=== PATIENT | female | born 1990 | race African-American/Black ===

== ENCOUNTER 2019-12-15 10:24 | Emergency (ER) | payer OTHER, SELFPAY ==
--- NOTE | ~2019-12-15 | XR_ITS ---
EXAMINATION: XR chest 1V portable DATE: 12/15/2019 11:34 INDICATION: Cough. Chills. TECHNIQUE: A single frontal view of the chest was obtained. COMPARISON: None. FINDINGS: The chest demonstrates clear lungs without pneumonia, pleural effusion, or pneumothorax. Th e heart size is normal. IMPRESSION: 1. No acute cardiopulmonary disease. Reviewed, dictated and finalized at location A.
[2019-12-15 10:31] VITALS: BP 128/75; PULSE 95; RESP 20; TEMP 37.1; O2SAT 98
--- NOTE | 2019-12-15 11:09 | ED.URI ---
HPI - URI/Sore Throat General Chief Complaint: Upper Respiratory Infection Stated Complaint: bodyaches, headache Time Seen by Provider: 12/15/19 10:40 Source: patient Mode of arrival: ambulatory Limitations: no limitations History of Present Illness HPI Narrative: This is a 29 year old female that presents to the ER for cold symptoms x 3 days. Reports cough, congestion, body aches, nausea and chills. Denies fever, chest pain or shortness of breath. Related Data Home Medications Medication Instructions Recorded Confirmed No Home Medications 12/15/19 12/15/19 Allergies Allergy/AdvReac Type Severity Reaction Status Date / Time No Known Allergies Allergy Verified 12/15/19 10:36 Review of Systems Review of Systems: Narrative: CONSTITUTIONAL: Denies fever ENT: Reports congestion. Denies sore throat, or otalgia. CARDIOVASCULAR: Denies chest pain RESPIRATORY: Reports cough. Denies dyspnea. GASTROINTESTINAL: Reports nausea, vomiting All systems reviewed & are unremarkable except as noted in HPI and below PMFSH Surgical History Surgical History (Updated 12/15/19 @ 11:14 by Kayla Ann PA-C) History of hernia repair Social History Social History (Updated 12/15/19 @ 11:14 by Kayla Ann PA-C) Substance use: never Gender identity (if verbalized by the patient): Female Exam Narrative: Exam Narrative: GENERAL: Well-appearing, obese, and in no acute distress. HEAD: Normocephalic, atraumatic. EYES: EOMI. ENT: Turbinates swollen and pale. Mucous membranes moist. Oropharynx without tonsillar hypertrophy exudate or other lesions. Bilateral TMs pearly casey non-bulging NECK: Supple. No adenopathy or masses. CHEST: Clear to auscultation. No respiratory distress. No wheezes rales or rhonchi HEART: Regular rate and rhythm. No murmur heard. Normal peripheral pulses. ABDOMEN: Soft, nontender, nondistended, normal active bowel sounds. EXTREMITIES: Normal range of motion. No edema. SKIN: Warm, dry, no rash. NEURO: No focal deficits. Alert and oriented x3. PSYCH: Normal mood and affect Course Vital Signs Vital signs: Vital Signs Temperature 98.7 F 12/15/19 10:31 Pulse Rate 95 12/15/19 10:31 Respiratory Rate 20 10/16/20 10:31 Blood Pressure 128/75 10/16/20 10:31 Pulse Oximetry 98 12/15/19 10:31 Temperature 98.7 F 12/15/19 10:31 Pulse Rate 95 12/15/19 10:31 Respiratory Rate 20 12/15/19 10:31 Blood Pressure 128/75 12/15/19 10:31 Pulse Oximetry 98 12/15/19 10:31 MDM - URI/Sore Throat MDM Narrative Medical decision making narrative: Patient presents emergency department for cold symptoms x3 days. She is afebrile and nontoxic-appearing. Oxygen saturation is remained normal on room air. CBC is without concerning findings. Metabolic panel with mild hypokalemia. Patient given dose of potassium in the ED. Influenza screen is negative. Major screen negative. SARS-CoV-2 was sent. Chest x-ray is clear. Patient updated on case findings. She is instructed on care of viral infection. She is to follow-up with primary care doctor. She was given warnings to return to the ER Lab Data Attestation: I reviewed the patient's lab results. Result diagrams: 12/15/19 11:17 12/15/19 11:17 Labs: Lab Results 12/15/19 12/15/19 12/15/19 Range/Units 11:04 11:17 11:17 WBC 3.3 L (4.5-10.0) K/mm3 RBC 4.14 L (4.2-5.4) M/mm3 Hgb 12.1 (12.0-15.0) g/dL Hct 36.3 L (37.0-47.0) % MCV 87.7 (80-100) fl MCH 29.2 (26-34) pg MCHC 33.3 (32-36) g/dl RDW 12.2 (11.5-14.5) % Plt Count 202 (150-375) k/mm3 MPV 9.0 (7.4-10.4) fl Immature Gran % (Auto) 0.3 (0-0.5) % Neut % (Auto) 47.0 (45.5-73.1) % Lymph % (Auto) 32.9 (18.3-44.2) % Major % (Auto) 19.2 H (2.6-8.5) % Eos % (Auto) 0.0 (0-4.4) % Baso % (Auto) 0.6 (0.2-1.2) % Lymph # (Auto) 1.10 (0.9-3.2) K/mm3 Major # (Auto) 0.6 (0.1-0.6) K/m
[2019-12-15 11:24] LABS: Basophils Percent Auto 0.6 % (0.2-1.2); Hematocrit 36.3 % (37.0-47.0); Hemoglobin 12.1 g/dL (12.0-15.0); Immature Granulocyte Absolute 0.01 K/mm3 (0.00-0.031); Immature Granulocyte Percent A 0.3 % (0-0.5); Lymphocytes Percent Auto 32.9 % (18.3-44.2); Mean Corpuscular HGB Conc 33.3 g/dl (32-36); Mean Corpuscular Hemoglobin 29.2 pg (26-34); Mean Corpuscular Volume 87.7 fl (80-100); Monocytes Absolute Auto 0.6 K/mm3 (0.1-0.6); Monocytes Percent Auto 19.2 % (2.6-8.5); Neutrophils Absolute Auto 1.6 K/mm3 (1.3-6.7); Platelet Count Result 202 k/mm3 (150-375); Red Blood Count 4.14 M/mm3 (4.2-5.4); Red Cell Distribution Width 12.2 % (11.5-14.5); White Blood Count 3.3 K/mm3 (4.5-10.0)
[2019-12-15 11:32] LABS: Atypical Lymphocytes Present; Platelet Estimate Adequate (Adequate)
[2019-12-15 11:39] LABS: Alanine Aminotransferase 49 U/L (4-35); Albumin Level 4.3 g/dL (3.5-5.1); Alkaline Phosphatase 60 U/L (38-126); Anion Gap 12 mmol/L (8-16); Aspartate Amino Transferase 51 U/L (14-36); Bilirubin,Total 0.3 mg/dL (0.2-1.3); Blood Urea Nitrogen 7 mg/dL (7-17); Calcium 8.5 mg/dL (8.4-10.2); Carbon Dioxide 22 mmol/L (22-30); Chloride 103 mmol/L (98-107); Estimated CRCL calculation 101 ml/min; Estimated Glomerular Filt Rate > 60; Glucose 93 mg/dL (65-105); Potassium 3.3 mmol/L (3.4-5.0); Sodium 137 mmol/L (137-145)
[2019-12-15] MEDS: POTASSIUM CHLORIDE 20 MEQ TABLET PO (11:51)
[2019-12-15 12:07] LABS: Monoscreen Negative (Negative); Negative Monotest Control Negative (Negative); Positive Monotest Control Positive (Positive)
[2019-12-15 18:26] LABS: SARS-CoV-2 RNA PCR Positive
== END 2019-12-15 12:44 | disposition home or self-care (01) ==
PROVIDERS: Physician Assistant; Emergency Provider Emergency Medicine
DX: U07.1 COVID-19 (principal)
CPT/HCPCS: 36415; 71045; 80053; 85025; 86308; 87635; 87804; 99283; A9270; C9803; U0003

== ENCOUNTER 2024-02-19 16:09 | Emergency (ER) | payer OTHER, SELFPAY ==
[2024-02-19 16:12] VITALS: BP 121/77; PULSE 100; RESP 14; TEMP 36.7; O2SAT 98
--- NOTE | 2024-02-19 17:10 | ED.SKABFB ---
HPI - Skin/Abscess/Foreign Bdy General Chief complaint: Skin/Abscess/Foreign Body Stated complaint: jorge Tee armpit Time Seen by Provider: 02/19/24 16:15 Source: patient Mode of arrival: ambulatory Limitations: no limitations History of Present Illness HPI narrative: this is a 33-year-old female that presents to the emergency department for an abscess on her left axilla. Present over the last couple of weeks. She has not been evaluated yet for this complaint. Denies fevers or drainage. Related Data Allergies Allergy/AdvReac Type Severity Reaction Status Date / Time morphine Allergy Itching Verified 02/19/24 16:27 Review of Systems Review of Systems: CONSTITUTIONAL: Denies fever SKIN: Reports swelling and pain All systems reviewed & are unremarkable except as noted in HPI and below PMFSH Past Medical History Medical History (Updated 02/19/24 @ 17:15 by Kayla Ann PA-C) History of hidradenitis suppurativa Surgical History Surgical History (Updated 12/15/19 @ 11:14 by Kayla Ann PA-C) History of hernia repair Social History Social History (Updated 12/15/19 @ 11:14 by Kayla Ann PA-C) Substance use: never Gender identity (if verbalized by the patient): Female Exam Narrative: GENERAL: Well-appearing, well-nourished, and in no acute distress. HEAD: Normocephalic, atraumatic. EYES: EOMI. CHEST: No respiratory distress. HEART: Regular rate EXTREMITIES: Normal range of motion. Small area of edema with central fluctuance to the left axilla. No lymphangitic streaking SKIN: Warm, dry, no rash. NEURO: No focal deficits. Alert and oriented x3. PSYCH: Normal mood and affect Course Course Emergency Course: patient educated on further wound care Vital Signs Vital signs: Vital Signs Temperature 98.0 F 02/19/24 16:12 Pulse Rate 100 02/19/24 16:12 Respiratory Rate 14 02/19/24 16:12 Blood Pressure 121/77 02/19/24 16:12 Pulse Oximetry 98 02/19/24 16:12 Oxygen Delivery Room Air 02/19/24 16:12 Temperature 98.0 F 02/19/24 16:12 Pulse Rate 100 02/19/24 16:12 Respiratory Rate 14 02/19/24 16:12 Blood Pressure 121/77 02/19/24 16:12 Pulse Oximetry 98 02/19/24 16:12 Oxygen Delivery Room Air 02/19/24 16:12 Procedures Abscess I/D upper extremity: Date of Incision: 02/19/24 Time of Incision: 17:12 Side (if applicable): left Local Anesthetic: lidocaine 1% and with epi Amount of anesthesia used (mL): 1 Technique: incised with #11 blade Irrigation: Yes (loculations broken up) Packing used?: plain I&D Results: Pus and Blood MDM - Skin/Abscess/Foreign Bdy MDM Narrative Medical decision making narrative: patient presents to the emergency department for abscess of the left axilla. She is afebrile and nontoxic appearing. Abscess was successfully drained. Patient will be started on oral antibiotics. Instructed on further wound care. She is to follow up my freelance copywriter. She was given warnings to return to the ER Differential Diagnosis Differential diagnosis: Likely abscess of skin or subcutaneous tissue and cellulitis Critical Care Time Critical Care Time Critical Care Time: No Discharge Plan Discharge Clinical Impression: Abscess of skin or subcutaneous tissue Qualifiers: Site of cutaneous abscess: extremity Site of cutaneous abscess of extremity: axilla Laterality: left Qualified Code(s): L02.412 - Cutaneous abscess of left axilla Patient Disposition: Home, Self-Care Condition: Stable Instructions: Antibiotic Form, Abscess (ED) Additional Instructions: Return if symptoms worsen or concerns: any increase in redness, swelling, pain or fever over 101 Take antibiotics as directed. Clean wound with mild soapy water. Apply antibiotic ointment and clean dressing at least three times daily. Warm compresses 3 times a day for 20 minutes each Follow up with primary care in the next 2-3 days for re-evaluation and packing removal Patient Language: Serbian Prescriptions: New doxycycline hyclate 100 mg tablet 100 mg PO BID 7 Days Qty: 14 0RF Follow-up/Referrals: Jesse Obando MD [Physician] - PHYSICIAN,COMBINING MACHINE OPERATOR [Primary Care Provider] -
[2024-02-19 17:26] VITALS: BP 125/82; PULSE 70; RESP 16; O2SAT 100
--- OUTSIDE RECORDS SUMMARY | 2024-02-26 23:11 | XMS_ITS | Encounter Summary ---
Author Organization [facility] Address [facility]6 [facility] [address] [place] [address] Care Team Providers Care Program Support Assistant Name Role Phone None, Provider Primary Care Provider Unavaila ble Reason for Referral * (Routine) - Closed Specialty Diagnoses / Procedures Referred By Contac t Referred To Contact Procedures INCISION AND DRAINAGE Elisa Gonzales NP Phone: tel: fax: Referral ID Status Reason Start Date Expiration Date Visits Re quested Visits Authorized [id number] Closed 01/26/2022 01/26/2023 1 1 MENTATION CONSULTANT Reason for Visit * Reason Comments Abscess Encounter Details Date Type Department Care Team (Late st Contact Info) Description 01/12/2022 12:56 PM DOCUMENTATION CONSULTANT - 01/12/2022 1:53 PM DOCUMENTATION CONSULTANT Emergency [facility] Emergency [address] [place] [address] Elisa Gonzales NP [address] [place], [place] [address] Abscess Discharge Disposition: Home or Self Care (Routine Discharge) Social History Tobacco Use Types Packs/Day Years Used Date Smoking Tobacco: Never Smokeless Tobacco: Never Comments No Sex and Gender Information Value Date Recorded Sex Assigned at Not on file Legal Sex Female 7:59 AM CDT Gender Identity Not on file Sexual Orientation Not on file COVID-19 Exposure Response Date Recorded In the last 10 days, have mazin waite been in contact with someone who was confirmed or suspected to have Coronavirus/COVID-19? No / Unsure 01/09/2022 9:07 AM DOCUMENTATION CONSULTANT documented as of this encounter Last Filed Vital Signs Vital Sign Reading Time Taken Comments Blood Pressure 123/69 01/12/2022 12:28 PM DOCUMENTATION CONSULTANT Pulse 67 01/12/2022 12:28 PM DOCUMENTATION CONSULTANT Temperature 36.7 ??C (98.1 ??F) 01/12/2022 12:[address] Respiratory Rate 17 01/12/2022 12:28 PM DOCUMENTATION CONSULTANT Oxygen Saturation 100% 01/12/2022 12:28 PM DOCUMENTATION CONSULTANT Inhaled Oxygen Concentration - - Weight 90.3 kg (199 lb 1.2 oz) 01/12/2022 12:28 PM DOCUMENTATION CONSULTANT Height 160 cm (5' 3 ) 01/12/2022 12:28 PM DOCUMENTATION CONSULTANT Body Mass Index 35.26 01/12/2022 12:28 PM DOCUMENTATION CONSULTANT documented in this encounter Discharge Instructions * Discharge Instructions* Elisa Gonzales NP - 01/12/2022 12:58 PM DOCUMENTATION CONSULTANT Thank you for choosing [facility] emergency department. We are happy to serve your healthcare needs. Follow-up with your primary care provider in 3 days. Call to set up an appointment. Leave packing in for 3 to 5 days. If you continue to have drainage after 5 days, you will need thisrepacked. For pain, inflammation, fever Ibuprofen as directed. 600 mg every 6 hours as needed for pain, inflammation, fever. Do Not take longer than 5 days in a row. Do not take if you have a history of kidney failure, heart disease, gastrointestinal bleeding or ulcers. Tylenol as directed. 500 mg to 1000 mg every 4-6 hours as needed for pain or fevers. Do not take more than 3500 mg in 24 hours. MENTATION CONSULTANT documented in this encounter Medications at Time of Discharge chlorhexidine 4 % Liquid Apply topically daily as needed. 118 mL 09/02/2021 HYDROcodone-acetamin ophen (NORCO) 5-325 MG tabletIndications:Ac [place] Pain < 3 Day Supply Take 1 tablet by mouth every 6 (six) hours as needed. Indications: Acute Pain < 3 Day Supply 12 tablet 01/12/2022 ondansetron (ZOFRAN-ODT) 4 MG disintegrating tablet Take 1 tablet (4 mg total) by mouth every 8 (eight) hours as needed for Nausea. 20 tablet 12/08/2021 doxycycline hyclate (VIBRAMYCIN) 100 MG capsule Take 1 capsule (100 mg total) by mouth 2 (two) times daily for 10 days. 20 capsule 01/09/2022 2 sulfamethoxazole-tri methoprim (BACTRIM DS) 800-160 MG tablet Take 1 tablet by mouth 2 (two) times daily for 10 days. 20 tablet 01/12/2022 2 documented as of this encounter ED Notes * Elisa Gonzales NP - 01/12/2022 12:56 PM CSTAssociated Order(s): Incision/Drainage Chief Complaint Chief Complaint Patient presents with ??? Abscess History of Present Illness Patient is a 31-year-old female with a past medical history significant for hidradenitis suppurativa who presents the ER today for complaints of abscess to left axilla for the last 3 weeks. Patient has had surgery to right axilla from a provider down and seen at [facility]. Patient states that she has anappointment with a surgeon in several weeks however, abscess is becoming larger and more painful over the last several days. Denies fever, chills or musculoskeletal complaints. Medical History ALLERGIES: No Known Allergies MEDICATIONS: Prior to Admission medications Medication Sig Start Date End Date Taking? Authorizing Provider HYDROcodone-acetaminophen (NORCO) 5-325 MG tablet Take 1 tablet by mouth every 6 (six) hours as needed. Indications: Acute Pain < 3 Day Supply 01/12/22 Yes Elisa Gonzales NP chlorhexidine 4 % Liquid Apply topically daily as needed. 09/02/21 Lauri Brennan NP ondansetron (ZOFRAN-ODT) 4 MG disintegrating tablet Take 1 tablet (4 mg total) by mouth every 8 (eight) hours as needed for Nausea. 12/08/21 Alcira M Savage, SPLIT LEATHER MOSSER PAST MEDICAL HISTORY: Past Medical History: Diagnosis Date ??? Known health problems: none PAST SURGICAL HISTORY: No past surgical history on file. FAMILY HISTORY: No family history on file. SOCIAL HISTORY: Social History Tobacco Use ??? Smoking status: Never ??? Smokeless tobacco: Never Review of Systems Review of Systems All other systems reviewed and are negative. Physical Exam Filed Vitals: 01/12/22 1228 BP: 123/69 Pulse: 67 Resp: 17 Temp: 98.1 ??F (36.7 ??C) TempSrc: Oral SpO2: 100% Weight: 90.3 kg (199 lb 1.2 oz) Height: 5' 3 (1.6 m) Physical Exam Vitals reviewed. Constitutional: General: She is not in acute distress. Appearance: Normal appearance. She is not ill-appearing, toxic-appearing or diaphoretic. Eyes: Extraocular Movements: Extraocular movements intact. Conjunctiva/sclera: Conjunctivae normal. Pupils: Pupils are equal, round, and reactive to light. Cardiovascular: Rate and Rhythm: Normal rate and regular rhythm. Pulses: Normal pulses. Heart sounds: Normal heart sounds. Pulmonary: Effort: Pulmonary effort is normal. Skin: Capillary Refill: Capillary refill takes less than 2 seconds. Comments: Left axilla with 2-3 cm area of induration, tenderness. Mild erythema. No current drainage. Neurological: General: No focal deficit present. Mental Status: She is alert and oriented to person, place, and time. Mental status is at baseline. Psychiatric: Mood and Affect: Mood normal. Behavior: Behavior normal. Thought Content: Thought content normal. Diagnostic Studies / Procedures ELECTROCARDIOGRAMS: No results found for this visit on 01/12/22. LABORATORY STUDIES: No results found for this visit on 01/12/22. IMAGING STUDIES No orders to display Incision/Drainage Date/Time: 01/26/2022 6:49 PM Performed by: Elisa Gonzales NP Authorized by: Elisa Gonzales NP Consent: Consent obtained: Verbal Consent given by: Patient Risks discussed: Incomplete drainage, pain and bleeding [place] protocol: Patient identity confirmed: Verbally with patient Location: Type: Abscess Size: 3 Location: left axilla. Pre-procedure details: Skin preparation: Povidone-iodine Anesthesia: Anesthesia method: Local infiltration Local anesthetic: Lidocaine 1% w/o epi Procedure type: Complexity: Simple Procedure details: Ultrasound guidance: no Needle aspiration: no Incision types: Stab incision Incision depth: Dermal Wound management: Probed and deloculated and irrigated with saline Drainage: Bloody and purulent Drainage amount: Moderate Packing materials: 1/4 in iodoform gauze Amount / iodoform: 2 cm Post-procedure details: Procedure completion: Tolerated well, no immediate complications ED Course / Medical Decision Making MDM Number of Diagnoses or Management Options Abscess of left axilla: minor Amount and/or Complexity of Data Reviewed Review and summarize past medical records: yes Patient Progress Patient progress: stable VSS. The patient is non toxic appearing. Differential diagnoses were considered and discussed with the patient. the patient's history, physical exam, and ancillary studies were taken into consideration for the patient's treatment. After reviewing the information and discussing the potential DDx andlikely Dx, the plan of care was discussed and the patient's disposition was agreed upon. Unless otherwise stated, this patient was seen independently without collaborative physician. Co signing MD Tirado Clinical Impression Abscess of left axilla (Primary) Disposition: Discharge Elisa Gonzales NP 01/26/[id number] Cosigned by Chato Tirado MD at 01/27/2022 8:00 AM DOCUMENTATION CONSULTANT MENTATION CONSULTANT MENTATION CONSULTANT * Oralia Gilliam RN - 01/12/2022 12:24 PM CST ARRIVED POV. C/O ABSCESS IN LT ARMT. STATES WAS SEEN HERE Wednesday, GIVEN ANTIBIOTICS, BUT AREA ONLY GETTING WORSE. MENTATION CONSULTANT documented in this encounter Plan of Treatment Not on file documented as of this encounter Procedures Procedure Name Priority Date/Time Associated Diagnosis Comments INCISION AND DRAINAGE Routine 01/26/2022 6:49 PM DOCUMENTATION CONSULTANT documented in this encounter Results * Incision/Drainage (01/26/2022 6:49 PM DOCUMENTATION CONSULTANT) Narrative Chato Tirado MD - 01/26/2022 6:49 PM DOCUMENTATION CONSULTANT Elisa Gonzales NP ? 01/26/2022 ??6:58 PM Incision/Drainage Date/Time: 01/26/2022 6:49 PM Performed by: Elisa Gonzales NP Authorized by: Elisa Gonzales NP Consent: ??Consent obtained: ??Verbal ??Consent given by: ??Patient ??Risks discussed: ??Incomplete drainage, pain and bleeding [place] protocol: ??Patient identity confirmed: ??Verbally with patient Location: ??Type: ??Abscess ??Size: ??3 ??Location: left axilla. Pre-procedure details: ??Skin preparation: ??Povidone-iodine Anesthesia: ??Anesthesia method: ??Local infiltration ??Local anesthetic: ??Lidocaine 1% w/o epi Procedure type: ??Complexity: ??Simple Procedure details: ??Ultrasound guidance: no ?Needle aspiration: no ?Incision types: ??Stab incision ??Incision depth: ??Dermal ??Wound management: ??Probed and deloculated and irrigated with saline ??Drainage: ??Bloody and purulent ??Drainage amount: ??Moderate ??Packing materials: ??1/4 in iodoform gauze ??Amount 1/4 iodoform: ??2 cm Post-procedure details: ??Procedure completion: ??Tolerated well, no immediate complications Elisa Gonzales NP PROCEDURE/MINOR SURGICAL ORD ERABLES Final Result documented in this encounter Visit Diagnoses Diagnosis Abscess of left axilla- Primary Cellulitis and abscess of upper arm and forearm documented in this encounter Administered Medications Inactive Administered Medications - up to 3 most recent administrations Medication Order MAR Action Action Date Dose Rate Site lidocaine (XYLOCAINE) 1 % injection SOLN 10 mL 10 mL, Intradermal, Once, 1 dose, On 01/12/22 at 1300 Given 01/12/2022 1:03 PM DOCUMENTATION CONSULTANT 10 mLs Left Arm documented in this encounter Active and Recently Administered Medications Times are shown in DOCUMENTATION CONSULTANT. Scheduled Medication Order 01/10/2022 01/11/2022 01/12/2022 lidocaine (XYLOCAINE) 1 % injection SOLN 10 mL (COMPLETED) 10 mL, Intradermal, Once, 1 dose, On Wed01/12/22 at 1300 1303 (Given - Provid er: Cher Cee RN) documented in this encounter Care Teams Program Support Assistant Relationship Specialty Start Date End Date None, Provider, PCP - General 09/02/21 documented as of this encounter
--- OUTSIDE RECORDS SUMMARY | 2024-02-26 23:11 | XMS_ITS | Encounter Summary ---
Author Organization [facility] Address [facility]6 [facility] [place] [address] [place] [address] Care Team Providers Care Chute Worker Name Role Phone None, Provider Primary Care Provider Unavaila ble Reason for Referral * Medication Prior Authorization - Closed Specialty Diagnoses / Procedures Referred By Contac t Referred To Contact Diagnoses Abscess of axilla, left Blanca Gibson PA-C [address] [address] Phone: tel: fax: Referral ID Status Reason Start Date Expiration Date Visits Re quested Visits Authorized [id number] Closed 1 1 S SERVICE ASSISTANT Reason for Visit * Reason Comments Abscess Encounter Details Date Type Department Care Team (Late st Contact Info) Description 02/20/2023 1:53 PM SALES SERVICE ASSISTANT - 02/20/2023 1:55 PM SALES SERVICE ASSISTANT Emergency [facility] [place] [address] Blanca Gibson PA-C [address] [address] Abscess Discharge Disposition: Home or Self Care (Routine Discharge) Social History Tobacco Use Types Packs/Day Years Used Date Smoking Tobacco: Never Smokeless Tobacco: Never Comments No Sex and Gender Information Value Date Recorded Sex Assigned at Not on file Legal Sex Female 7:59 AM CDT Gender Identity Not on file Sexual Orientation Not on file documented as of this encounter Last Filed Vital Signs Vital Sign Reading Time Taken Comments Blood Pressure 148/71 02/20/2023 1:21 PM SALES SERVICE ASSISTANT Pulse 89 02/20/2023 1:21 PM SALES SERVICE ASSISTANT Temperature 36.4 ??C (97.5 ??F) 02/20/2023 1:21 PM CS T Respiratory Rate 18 02/20/2023 1:21 PM SALES SERVICE ASSISTANT Oxygen Saturation 100% 02/20/2023 1:21 PM SALES SERVICE ASSISTANT Inhaled Oxygen Concentration - - Weight 86.5 kg (190 lb 11.2 oz) 02/20/2023 1:21 PM SALES SERVICE ASSISTANT Height 157.5 cm (5' 2 ) 02/20/2023 1:21 PM SALES SERVICE ASSISTANT Body Mass Index 34.88 02/20/2023 1:21 PM SALES SERVICE ASSISTANT documented in this encounter Discharge Instructions * Discharge Instructions* Blanca Gibson PA-C - 02/20/2023 1:25 PM SALES SERVICE ASSISTANT Take medications as prescribed. Warm compresses. Follow up with your doctor S SERVICE ASSISTANT * Attachments The following attachments cannot be sent through Care Everywhere. * Boil Discharge Instructions (Turkish) documented in this encounter Medications at Time of Discharge chlorhexidine 4 % Liquid Apply topically daily as needed. 118 mL 09/02/2021 fluticasone propionate (FLONASE) 50 MCG/ACT nasal spray 2 sprays by Each Nostril route daily. 9.9 mL 05/13/2022 HYDROcodone-acetamin ophen (NORCO) 5-325 MG tabletIndications:Ac [place] Pain < 3 Day Supply Take 1 tablet by mouth every 6 (six) hours as needed. Indications: Acute Pain < 3 Day Supply 12 tablet 01/12/2022 ketorolac (TORADOL) 10 MG tablet Take 1 tablet (10 mg total) by mouth every 6 (six) hours as needed for Pain. 20 tablet 05/13/2022 loratadine-pseudoeph edrine ER (CLARITIN-D 12 HOUR) 5-120 MG 12 hr tablet Take 1 tablet by mouth 2 (two) times daily. 20 tablet 05/13/2022 ondansetron (ZOFRAN-ODT) 4 MG disintegrating tablet Take 1 tablet (4 mg total) by mouth every 8 (eight) hours as needed for Nausea. 20 tablet 12/08/2021 traMADol (ULTRAM) 50 MG tabletIndications:Ac [place] Pain < 7 Day Supply Indications: Acute Pain < 7 Day Supply 1-2 tabs po q6 hours prn pain 16 tablet 02/20/2023 sulfamethoxazole-tri methoprim (BACTRIM DS) 800-160 MG tablet Take 1 tablet by mouth 2 (two) times daily for 10 days. 20 tablet 02/20/2023 4 documented as of this encounter ED Notes * Blanca Gibson PA-C - 02/20/2023 1:23 PM C[facility] 1990 Chief Complaint Chief Complaint Patient presents with Abscess History of Present Illness Abscess Associated symptoms: no fever, no headaches, no nausea and no vomiting Patient presents ambulatory to the emergency room through triage complaining of swollen abscess to left axilla for the past several days. Warm compresses and [id number] pain reliever without relief. No current drainage. Denies fever, chills, sweats. History of hidradenitis axillaris to the right side of her body, she had surgical procedure for this. This is the first abscess to the left side. No medication prior to arrival, regarding antibiotics. Medical History ALLERGIES: Review of patient's allergies indicates: No Known Allergies MEDICATIONS: Prior to Admission medications Medication Sig Start Date End Date Taking? Authorizing Provider sulfamethoxazole-trimethoprim (BACTRIM DS) 800-160 MG tablet Take 1 tablet by mouth 2 (two) times daily for 10 days. 02/20/23 03/02/23 Yes Blanca Gibson PA-C traMADol (ULTRAM) 50 MG tablet Indications: Acute Pain < 7 Day Supply 1-2 tabs po q6 hours prn pain 02/20/23 Yes Blanca Gibson PA-C chlorhexidine 4 % Liquid Apply topically daily as needed. 09/02/21 Lauri Brennan NP fluticasone propionate (FLONASE) 50 MCG/ACT nasal spray 2 sprays by Each Nostril route daily. 05/13/22 Hero Eugene NP HYDROcodone-acetaminophen (NORCO) 5-325 MG tablet Take 1 tablet by mouth every 6 (six) hours as needed. Indications: Acute Pain < 3 Day Supply 01/12/22 Elisa Gonzales NP ketorolac (TORADOL) 10 MG tablet Take 1 tablet (10 mg total) by mouth every 6 (six) hours as neededfor Pain. 05/13/22 Hero Eugene NP loratadine-pseudoephedrine ER (CLARITIN-D 12 HOUR) 5-120 MG 12 hr tablet Take 1 tablet by mouth 2 (two) times daily. 05/13/22 Hero Eugene NP ondansetron (ZOFRAN-ODT) 4 MG disintegrating tablet Take 1 tablet (4 mg total) by mouth every 8 (eight) hours as needed for Nausea. 12/08/21 Alcira Savage NP PAST MEDICAL HISTORY: Past Medical History: Diagnosis Date Known health problems: none PAST SURGICAL HISTORY: History reviewed. No pertinent surgical history. FAMILY HISTORY: No family history on file. SOCIAL HISTORY: Social History Tobacco Use Smoking status: Never Smokeless tobacco: Never Review of Systems Review of Systems Constitutional: Negative for activity change, appetite change, fever and unexpected weight change. HENT: Negative for ear pain, sore throat and trouble swallowing. Eyes: Negative. Respiratory: Negative for cough, chest tightness and shortness of breath. Cardiovascular: Negative for chest pain, palpitations and leg swelling. Gastrointestinal: Negative for abdominal distention, abdominal pain, constipation, diarrhea, nauseaand vomiting. Genitourinary: Negative for dysuria, flank pain and hematuria. Musculoskeletal: Negative for arthralgias, back pain, myalgias and neck pain. Skin: Negative for color change, rash and wound. Abscess left axilla Allergic/Immunologic: Negative for immunocompromised state. Neurological: Negative for dizziness, speech difficulty, weakness, light- headedness, numbness and headaches. Hematological: Negative for adenopathy. Psychiatric/Behavioral: Negative. Physical Exam Filed Vitals: 02/20/23 1321 BP: (!) 148/71 Pulse: 89 Resp: 18 Temp: 97.5 ??F (36.4 ??C) TempSrc: Temporal SpO2: 100% Weight: 86.5 kg (190 lb 11.2 oz) Height: 1.575 m (5' 2 ) Physical Exam Vitals and nursing note reviewed. Exam conducted with a sole inker present. Constitutional: General: She is not in acute distress. Appearance: Normal appearance. She is well-developed. She is not ill-appearing, toxic-appearing or diaphoretic. HENT: Head: Normocephalic and atraumatic. Right Ear: External ear normal. Left Ear: External ear normal. Nose: Nose normal. Mouth/Throat: Mouth: Mucous membranes are moist. Pharynx: Oropharynx is clear. Eyes: Extraocular Movements: Extraocular movements intact. Conjunctiva/sclera: Conjunctivae normal. Pupils: Pupils are equal, round, and reactive to light. Neck: Thyroid: No thyromegaly. Trachea: No tracheal deviation. Cardiovascular: Rate and Rhythm: Normal rate and regular rhythm. Pulses: Normal pulses. Heart sounds: Normal heart sounds. Pulmonary: Effort: Pulmonary effort is normal. No respiratory distress. Breath sounds: Normal breath sounds. Abdominal: General: Abdomen is flat. Bowel sounds are normal. There is no distension. Palpations: Abdomen is soft. There is no mass. Tenderness: There is no abdominal tenderness. There is no guarding or rebound. Hernia: No hernia is present. Musculoskeletal: General: No swelling, tenderness, deformity or signs of injury. Normal range of motion. Cervical back: Normal range of motion and neck supple. No rigidity. Lymphadenopathy: Cervical: No cervical adenopathy. Skin: General: Skin is warm and dry. Capillary Refill: Capillary refill takes less than 2 seconds. Findings: No rash. Comments: Superficial immature minimally fluctuant and indurated abscess to left axilla, approximately 1 cm diameter. No surrounding cellulitis or erythema. No necrotic skin tissue. No current drainage. Neurological: General: No focal deficit present. Mental Status: She is alert and oriented to person, place, and time. Cranial Nerves: No cranial nerve deficit. Sensory: No sensory deficit. Motor: No weakness. Coordination: Coordination normal. Gait: Gait normal. Deep Tendon Reflexes: Reflexes normal. Psychiatric: Mood and Affect: Mood normal. Behavior: Behavior normal. Thought Content: Thought content normal. Judgment: Judgment normal. Diagnostic Studies / Procedures ELECTROCARDIOGRAMS: No results found for this visit on 02/20/23. LABORATORY STUDIES: No results found for this visit on 02/20/23. IMAGING STUDIES No orders to display ED Course / Medical Decision Making Medical Decision Making Patient stable. Nontoxic appearance. No concerning vital signs. Immature abscess noted. Will discharge with antibiotic and PCP follow-up. Problems Addressed: Abscess of axilla, left: acute illness or injury Risk OTC drugs. Prescription drug management. Medications - No data to display Clinical Impression Abscess of axilla, left (Primary) Current Discharge Medication List START taking these medications Details sulfamethoxazole-trimethoprim (BACTRIM DS) 800-160 MG tablet Take 1 tablet by mouth 2 (two) times daily for 10 days. Qty: 20 tablet, Refills: 0 Class: Eprescribe Pharmacy: [facility]/pharmacy #[id number] [address] AT [facility] (Ph #: [phone]) traMADol (ULTRAM) 50 MG tablet Indications: Acute Pain < 7 Day Supply 1-2 tabs po q6 hours prn pain Qty: 16 tablet, Refills: 0 Class: Eprescribe Pharmacy: [email or web address]/pharmacy #[facility] / [facility], [place] [id number] [facility] (Ph #: [phone]) Associated Diagnoses: Abscess of axilla, left Disposition: Discharge Follow-Up: your doctor Call in 2 days BLANCA GIBSON PA-C 02/20/2023 Blanca Gibson PA-C 02/20/23 1328 Cosigned by Saran Foley MD at 02/20/2023 1:43 PM SALES SERVICE ASSISTANT S SERVICE ASSISTANT S SERVICE ASSISTANT * Ghada Martin RN - 02/20/2023 1:21 PM CST Pt states she has a boil under left arm that started a few days ago. Pt states she has a history of abscesses. States she has been putting warm compresses on it. No fevers. 6/10 pain. S SERVICE ASSISTANT documented in this encounter Plan of Treatment Not on file documented as of this encounter Visit Diagnoses Diagnosis Abscess of axilla, left- Primary Cellulitis and abscess of upper arm and forearm documented in this encounter Care Teams Chute Worker Relationship Specialty Start Date End Date None, Provider, PCP - General 09/02/21 documented as of this encounter
--- OUTSIDE RECORDS SUMMARY | 2024-02-26 23:11 | XMS_ITS | Encounter Summary ---
Author Organization [facility] Address [facility]6 [facility] [place] [address] [place] [address] Care Team Providers Care Leather Worker Name Role Phone None, Provider Primary Care Provider Merced vincent Encounter Details Date Type Department Care Team (Latest Contact Info) Description 02/20/2023 Travel Social History Tobacco Use Types Packs/Day Years Used Date Smoking Tobacco: Never Smokeless Tobacco: Never Comments No Sex and Gender Information Value Date Recorded Sex Assigned at Not on file Legal Sex Female 7:59 AM CDT Gender Identity Not on file Sexual Orientation Not on file documented as of this encounter Plan of Treatment Not on file documented as of this encounter Visit Diagnoses Not on filedocumented in this encounter Care Teams Leather Worker Relationship Specialty Start Date End Date None, Provider, PCP - General 09/02/21 documented as of this encounter
--- OUTSIDE RECORDS SUMMARY | 2024-02-26 23:11 | XMS_ITS | Encounter Summary ---
Author Organization [facility] System Address [facility] [place] [address] [place] [address] Care Team Providers Care Professor Of Religion Name Role Phone None, Provider Primary Care Provider Unavaila ble Reason for Visit * Reason Comments Headache Encounter Details Date Type Department Care Team (Late st Contact Info) Description 05/13/2022 11:08 AM CDT - 05/13/2022 12:03 PM CDT Emergency [facility] Emergency [address] [place] [address] Hero Eugene, GEE [address] [place] [address] [id number] Headache Discharge Disposition: Home or Self Care (Routine [...] Recorded In the last 10 days, have yo u been in contact with someone who was confirmed or suspected to have Coronavirus/COVID-19? No / Unsure 05/13/2022 9:10 AM CDT documented as of this encounter Last Filed Vital Signs Vital Sign Reading Time Taken Comments Blood Pressure 127/87 05/13/2022 9:33 AM CDT Pulse 78 05/13/2022 9:33 AM CDT Temperature 36.9 ??C (98.5 ??F) 05/13/2022 9:33 AM CD T Respiratory Rate 18 05/13/2022 9:33 AM CDT Oxygen Saturation 100% 05/13/2022 9:33 AM CDT Inhaled Oxygen Concentration - - Weight 87.3 kg (192 lb 7.4 oz) 05/13/2022 9:33 A M CDT Height 160 cm (5' 3 ) 05/13/2022 9:33 AM CDT Body Mass Index 34.09 05/13/2022 9:33 AM CDT documented in this encounter Discharge Instructions * Discharge Instructions* Hero Eugene NP - 05/13/2022 11:57 AM CDT Take medications as prescribed. Get plenty of clear fluids and stay well- hydrated. Follow-up with your primary care doctor for reevaluation of symptoms as needed. Return to the emergency department for any new or worsening concerns. * Attachments The following attachments cannot be sent through Care Everywhere. * Sinus Headache Discharge Instructions (Estonian) * Serous Otitis Media Discharge Instructions (Estonian) documented in this encounter Medications at Time of Discharge chlorhexidine 4 % Liquid Apply topically daily as needed. 118 mL 09/02/2021 fluticasone propionate (FLONASE) 50 MCG/ACT nasal spray 2 sprays by Each Nostril route daily. 9.9 mL 05/13/2022 HYDROcodone-acetamin ophen (NORCO) 5-325 MG tabletIndications:Ac cantwell Pain < 3 Day Supply Take 1 [...] as needed for Nausea. 20 tablet 12/08/2021 documented as of this encounter ED Notes * Hero Eugene NP - 05/13/2022 11:10 AM CDT Chief Complaint Chief Complaint Patient presents with ??? Headache History of Present Illness History obtained from patient 31-year-old female without significant past medical history presents to the emergency department with complaints of bilateral ear pain, facial pressure and forehead pain ongoing for the past 3 days. She denies fevers or chills. No sore throat. No chest pain or shortness of breath. Patient reports her ears and face feel full and are painful, throbbing. She denies taking anything for her symptoms. She denies chance of . No other complaints endorsed by patient while in emergency department today. Medical History ALLERGIES: No Known Allergies MEDICATIONS: Prior to Admission medications Medication Sig Start Date End Date Taking? Authorizing Provider fluticasone propionate (FLONASE) 50 MCG/ACT nasal spray 2 sprays by Each Nostril route daily. 05/13/22 Yes Hero Eugene NP ketorolac (TORADOL) 10 MG tablet Take 1 tablet (10 mg total) by mouth every 6 (six) hours as neededfor Pain. 05/13/22 Yes Hero Eugene NP loratadine-pseudoephedrine ER (CLARITIN-D 12 HOUR) 5-120 MG 12 hr tablet Take 1 tablet by mouth 2 (two) times daily. 05/13/22 Yes Hero Eugene NP chlorhexidine 4 % Liquid Apply topically daily as needed. 09/02/21 Lauri Brennan NP HYDROcodone-acetaminophen (NORCO) 5-325 MG tablet Take 1 tablet by mouth every 6 (six) hours as needed. Indications: Acute Pain < 3 Day Supply 01/12/22 Elisa Gonzales NP ondansetron (ZOFRAN-ODT) 4 MG disintegrating tablet [...] Review of Systems Review of Systems Constitutional: Negative. HENT: Positive for ear pain, sinus pressure and sinus pain. Eyes: Negative. Respiratory: Negative. Cardiovascular: Negative. Gastrointestinal: Negative. Endocrine: Negative. Genitourinary: Negative. Musculoskeletal: Negative. Skin: Negative. Allergic/Immunologic: Negative. Neurological: Negative. Hematological: Negative. Psychiatric/Behavioral: Negative. Physical Exam Filed Vitals: 05/13/22 0933 BP: 127/87 Pulse: 78 Resp: 18 Temp: 98.5 ??F (36.9 ??C) SpO2: 100% Weight: 87.3 kg (192 lb 7.4 oz) Height: 5' 3 (1.6 m) Physical Exam Vitals and nursing note reviewed. Constitutional: General: She is not in acute distress. Appearance: Normal appearance. She is well-developed. She is obese. She is not ill-appearing, toxic-appearing or diaphoretic. HENT: Head: Normocephalic and atraumatic. Right Ear: Ear canal and external ear normal. A middle ear effusion is present. There is no impacted cerumen. Left Ear: Ear canal and external ear normal. A middle ear effusion is present. There is no impactedcerumen. Nose: No congestion or rhinorrhea. Eyes: Conjunctiva/sclera: Conjunctivae normal. Pupils: Pupils are equal, round, and reactive to light. Neck: Thyroid: No thyromegaly. Vascular: No carotid bruit. Cardiovascular: Rate and Rhythm: Normal rate and regular rhythm. Pulses: Dorsalis pedis pulses are 2+ on the right side and 2+ on the left side. Heart sounds: Normal heart sounds. No murmur heard. No friction rub. No gallop. Pulmonary: Effort: Pulmonary effort is normal. No respiratory distress. Breath sounds: Normal breath sounds. Abdominal: General: Bowel sounds are normal. There is no distension. Palpations: Abdomen is soft. There is no mass. Tenderness: There is no abdominal tenderness. Musculoskeletal: General: No deformity. Cervical back: Neck supple. No rigidity or tenderness. Lymphadenopathy: Cervical: No cervical adenopathy. Skin: General: Skin is warm and dry. Neurological: Mental Status: She is alert and oriented to person, place, and time. Sensory: No sensory deficit. Psychiatric: Behavior: Behavior normal. Diagnostic Studies / Procedures ELECTROCARDIOGRAMS: No results found for this visit on 05/13/22. LABORATORY STUDIES: Results for orders placed or performed during the hospital encounter of 05/13/22 BIOFIRE PCR UPPER RESPIRATORY PROFILE (RESPIRATORY PCR PANEL 2) Specimen: NASOPHARYNGEAL SWAB Result Value Ref Range ADENOVIRUS PCR (RESP) NOT DETECTED NOT DETECTED CORONAVIRUS 229E PCR (RESP) NOT DETECTED NOT DETECTED CORONAVIRUS HKU1 PCR (RESP) NOT DETECTED NOT DETECTED CORONAVIRUS NL63 PCR (RESP) NOT DETECTED NOT DETECTED CORONAVIRUS OC43 PCR (RESP) NOT DETECTED NOT DETECTED METAPNEUMOVIRUS PCR (RESP) NOT DETECTED NOT DETECTED RHINOVIRUS/ENTEROVIRUS PCR (RESP) NOT DETECTED NOT DETECTED INFLUENZA A PCR (RESP) NOT DETECTED NOT DETECTED INFLUENZA B PCR (RESP) NOT DETECTED NOT DETECTED PARAINFLUENZA 1 PCR (RESP) NOT DETECTED NOT DETECTED PARAINFLUENZA 2 PCR (RESP) NOT DETECTED NOT DETECTED PARAINFLUENZA 3 PCR (RESP) NOT DETECTED NOT DETECTED PARAINFLUENZA 4 PCR (RESP) NOT DETECTED NOT DETECTED RSV PCR (RESP) NOT DETECTED NOT DETECTED B PARAPERTUSIS PCR (RESP) NOT DETECTED NOT DETECTED BORDETELLA PERTUSSIS PCR (RESP) NOT DETECTED NOT DETECTED CHLAMYDOPHILA PNEUMONIAE PCR (RESP) NOT DETECTED NOT DETECTED MYCOPLASMA PNEUMONIAE PCR (RESP) NOT DETECTED NOT DETECTED CORONAVIRUS SARS COV 2 PCR (RESP) NOT DETECTED NOT DETECTED FIRST TEST UNKNOWN EMPLOYED IN HEALTHCARE NO SYMPTOMATIC DEFINED BY CDC YES DATE OF SYMPTOM ONSET 20220511 HOSPITALIZATION STATUS UNKNOWN PATIENT IN ICU UNKNOWN RESIDENT OF [facility]ARE NO UNKNOWN RAPID STREP A Specimen: THROAT Result Value Ref Range SPEC DESCRIPTION THROAT SPECIAL REQUESTS NO SPECIAL REQUEST RAPID STREP TEST NEGATIVE FOR GROUP A BETA STREP CULTURE STREP A Specimen: THROAT Result Value Ref Range SPEC DESCRIPTION THROAT SPECIAL REQUESTS NO SPECIAL REQUEST CULTURE RESULT NO STREPTOCOCCUS PYOGENES (GROUP A) ISOLATED IMAGING STUDIES No orders to display ED Course / Medical Decision Making Medical Decision Making 31-year-old female presented to the emergency department with complaints of bilateral ear pain, pressure, generalized body aches ongoing for the past 2 days. On exam, patient is afebrile, nontoxic-appearing, no signs of distress. Bio fire, strep test negative here. Patient was given Toradol and tramadol for pain while here with improvement. Will discharge to home with decongestant, nasal steroid and Toradol for pain for management of sinusitis, serous otitis media. Patient is agreeable with plan and discharge. Return precautions discussed. Amount and/or Complexity of Data Reviewed Labs: ordered. Decision-making details documented in ED Course. ED Course as of 05/19/222130May 13, 2022 1153 RAPID STREP TEST: NEGATIVE FOR GROUP A BETA STREP [JZ] 1153 BP: 127/87 [JZ] 1153 Temp: 98.5 ??F (36.9 ??C) [JZ] 1153 Pulse: 78 [JZ] 1153 SpO2: 100 % [JZ] 1153 Resp: 18 [JZ] ED Course User Index [JZ] Hero Eugene NP Clinical Impression Sinusitis (Primary) Serous otitis media Disposition: Discharge Cosigner Rajeev Unless otherwise documented, I provided definitive care for this patient Follow up: PCP in 1 week Hero Eugene NP 05/19/222130 Cosigned by Yarely Dickinson MD at 05/20/2022 12:30 PM CDT Associated attestation - Yarely Dickinson MD - 05/20/2022 12:30 PM CDT I am signing this chart for administrative reasons. I did not directly see this patient nor was I involved in the patient's care. * Ilan Malik NP - 05/13/2022 9:32 AM CDT Medical Screening Exam Patient: Rohini Castellon : 1990 Encounter Date: 05/13/2022 Chief Complaint: Chief Complaint Patient presents with ??? Headache History of Present Illness: Rohini Castellon presents with HOWARD and body aches, symptoms started 2 days ago. Review of Systems: Review of Systems HENT: Positive for congestion, ear pain and sore throat. Negative for rhinorrhea. Neurological: Positive for headaches. Vitals: Filed Vitals: 05/13/22932 BP: 127/87 Pulse: 78 Resp: 18 Temp: 98.5 ??F (36.9 ??C) SpO2: 100% Weight: 87.3 kg (192 lb 7.4 oz) Height: 5' 3 (1.6 m) Brief Physical Exam: Physical Exam Constitutional: General: She is not in acute distress. Pulmonary: Effort: Pulmonary effort is normal. No respiratory distress. Neurological: General: No focal deficit present. Mental Status: She is alert and oriented to person, place, and time. Mental status is at baseline. Rohini Castellon was assessed while in the waiting room. Appropriate orders were entered based on assessment pending placement in ED room. Patient is stable to remain in waiting room until next available room opens. ILAN MALIK NP 05/13/2022 9:35 AM Ilan Malik NP 05/13/22 0935 Cosigned by Savita Jean MD at 05/17/2022 8:40 AM CDT * Chantell Astudillo RN - 05/13/2022 9:09 AM CDT Pt to triage c/o shooting pains in head and generalized body aches. States sx started two days ago. documented in this encounter Plan of Treatment Not on file documented as of this encounter Procedures Procedure Name Priority Date/Time Associated Diagnosis Comments CULTURE STREP A Nurse Collected Priority 05/13/2022 9:43 AM CDT RESPIRATORY PCR PANEL 2 Nurse Collected Priority 05/13/2022 9:43 AM CDT RAPID STREP A Nurse Collected Priority 05/13/2022 9:43 AM CDT documented in this encounter Results * CULTURE STREP A (05/13/2022 9:43 AM CDT) SPEC DESCRIPTION THROAT 05/13/2022 9:43 AM CDT [facility] SPECIAL REQUESTS NO SPECIAL REQUEST 05/13/2022 9:43 AM CDT [facility] CULTURE RESULT NO STREPTOCOCCUS PYOGENES (GROUP A) ISOLATED 05/15/2022 3:12 PM CDT [facility] THROAT SWAB / Unknown 05/13/2022 9:43 AM CDT 05/13/2022 9:53 AM CDT us Ilan Malik AIRCRAFT BODY REPAIRER MICROBIOLOGY - GENERAL ORDERA BLES Final Result Performing Organization Address [facility] [[email or web address]] Co de Phone Number [facility] [address] [place] [address], [phone] * RAPID STREP A (05/13/2022 9:43 AM CDT) SPEC DESCRIPTION THROAT 05/13/2022 9:43 AM CDT [facility] SPECIAL REQUESTS NO SPECIAL REQUEST 05/13/2022 9:43 AM CDT [facility] RAPID STREP TEST NEGATIVE FOR GROUP A BETA STREP 05/13/2022 10:09 AM CDT [facility] THROAT SWAB / Unknown 05/13/2022 9:43 AM CDT 05/13/2022 9:53 AM CDT us Ilan Malik AIRCRAFT BODY REPAIRER MICROBIOLOGY - GENERAL ORDERA BLES Final Result Performing Organization Address [facility]/ZIP Co de Phone Number [facility] [address] [place] [address], [place] [phone] * BIOFIRE PCR UPPER RESPIRATORY PROFILE (RESPIRATORY PCR PANEL 2) (05/13/2022 9:43 AM CDT) ADENOVIRUS PCR (RESP) NOT DETECTED NOT DETECTED 05/13/2022 10:50 AM CDT [facility] CORONAVIRUS 229E PCR (RESP) NOT DETECTED NOT DETECTED 05/13/2022 10:50 AM CDT [facility] CORONAVIRUS HKU1 PCR (RESP) NOT DETECTED NOT DETECTED 05/13/2022 10:50 AM CDT [facility] CORONAVIRUS NL63 PCR (RESP) NOT DETECTED NOT DETECTED 05/13/2022 10:50 AM CDT [facility] CORONAVIRUS OC43 PCR (RESP) NOT DETECTED NOT DETECTED 05/13/2022 10:50 AM CDT [facility] METAPNEUMOVIRUS PCR (RESP) NOT DETECTED NOT DETECTED 05/13/2022 10:50 AM CDT [facility] RHINOVIRUS/ENTEROV IRUS PCR (RESP) NOT DETECTED NOT DETECTED 05/13/2022 10:50 AM CDT [facility] INFLUENZA A PCR (RESP) NOT DETECTED NOT DETECTED 05/13/2022 10:50 AM CDT [facility] INFLUENZA B PCR (RESP) NOT DETECTED NOT DETECTED 05/13/2022 10:50 AM CDT [facility] PARAINFLUENZA 1 PCR (RESP) NOT DETECTED NOT DETECTED 05/13/2022 10:50 AM CDT [facility] PARAINFLUENZA 2 PCR (RESP) NOT DETECTED NOT DETECTED 05/13/2022 10:50 AM CDT [facility] PARAINFLUENZA 3 PCR (RESP) NOT DETECTED NOT DETECTED 05/13/2022 10:50 AM CDT [facility] PARAINFLUENZA 4 PCR (RESP) NOT DETECTED NOT DETECTED 05/13/2022 10:50 AM CDT [facility] RSV PCR (RESP) NOT DETECTED NOT DETECTED 05/13/2022 10:50 AM CDT [facility] B PARAPERTUSIS PCR (RESP) NOT DETECTED NOT DETECTED 05/13/2022 10:50 AM CDT [facility] BORDETELLA PERTUSSIS PCR (RESP) NOT DETECTED NOT DETECTED 05/13/2022 10:50 AM CDT [facility] CHLAMYDOPHILA PNEUMONIAE PCR (RESP) NOT DETECTED NOT DETECTED 05/13/2022 10:50 AM CDT [facility] MYCOPLASMA PNEUMONIAE PCR (RESP) NOT DETECTED NOT DETECTED 05/13/2022 10:50 AM CDT [facility] CORONAVIRUS SARS COV 2 PCR (RESP) NOT DETECTED NOT DETECTED 05/13/2022 10:50 AM CDT [facility] FIRST TEST UNKNOWN 05/13/2022 9:43 AM CDT [facility] EMPLOYED IN HEALTHCARE NO 05/13/2022 9:43 AM CDT [facility] SYMPTOMATIC DEFINED BY CDC YES 05/13/2022 9:43 AM CDT [facility] DATE OF SYMPTOM ONSET 2022051105/13/2022 9:43 AM CDT [facility] HOSPITALIZATION STATUS UNKNOWN 05/13/2022 9:43 AM CDT [facility] PATIENT IN ICU UNKNOWN 05/13/2022 9:53 AM CDT [facility] RESIDENT OF [facility] NO 05/13/2022 9:43 AM CDT [facility] UNKNOWN 05/13/2022 9:43 AM CDT [facility] NASOPHARYNGEAL SWAB / Unknown 05/13/2022 9:43 AM CDT us Ilan Malik NP MICROBIOLOGY - GENERAL ORDERA BLES Final Result [facility] [address] [place] [address], [phone] documented in this encounter Visit Diagnoses Diagnosis Sinusitis- Primary Unspecified sinusitis (chronic) Serous otitis media Nonsuppurative otitis media, not specified as acute or chronic documented in this encounter Administered Medications Inactive Administered Medications - up to 3 most recent administrations Medication Order MAR Action Action Date Dose Rate Site ketorolac (TORADOL) tablet 10 mg 10 mg, Oral, Once, 1 dose, On Wed05/13/22 at 1145 Given 05/13/2022 11:40 AM CDT 10 mg traMADol (ULTRAM) tablet 50 mg 50 mg, Oral, Once, 1 dose, On Wed05/13/22 at 1145 Given 05/13/2022 11:40 AM CDT 50 mg documented in this encounter Active and Recently Administered Medications Times are shown in CDT. Scheduled Medication Order 05/11/2022 05/12/2022 05/13/2022 ketorolac (TORADOL) tablet 10 mg (COMPLETED) 10 mg, Oral, Once, 1 dose, On Wed05/13/22 at 1145 1140 (Given - Provid er: Carey Thomas RN) traMADol (ULTRAM) tablet 50 mg (COMPLETED) 50 mg, Oral, Once, 1 dose, On Wed05/13/22 at 1145 1140 (Given - Provid er: Carey Thomas RN) documented in this encounter Care Teams Professor Of Religion Relationship Specialty Start Date End Date None, Provider, PCP - General 09/02/21 documented as of this encounter
--- OUTSIDE RECORDS SUMMARY | 2024-02-26 23:11 | XMS_ITS | Encounter Summary ---
Author Organization [facility] Address [facility] access hospital[address] [facility] [place] [address] [place] [address] Care Team Providers Care Internet E Commerce Specialist Name Role Phone None, Provider Primary Care Provider [place] vincent Encounter Details Date Type Department Care Team (Latest Contact Info) Description 01/09/2022 Travel Social History Tobacco Use Types Packs/Day [...] Coronavirus/COVID-19? No / Unsure 01/09/2022 9:07 AM RISK MANAGEMENT DIRECTOR documented as of this encounter Plan of Treatment Not on file documented as of this encounter Visit Diagnoses Not on filedocumented in this encounter Care Teams Internet E Commerce Specialist Relationship Specialty Start Date End Date None, Provider, PCP - General 09/02/21 documented as of this encounter
--- OUTSIDE RECORDS SUMMARY | 2024-02-26 23:11 | XMS_ITS | Encounter Summary ---
Author Organization [facility] System Address [facility] [place] [address] [place] [address] Care Team Providers Care Psychiatric Social Worker Name Role Phone None, Provider Primary Care Provider [place] vincent Encounter Details Date Type Department Care Team (Latest Contact Info) Description 05/13/2022 Travel Social History Tobacco Use Types Packs/Day [...] AM CDT documented as of this encounter Plan of Treatment Not on file documented as of this encounter Visit Diagnoses Not on filedocumented in this encounter Additional Health Concerns Infection Onset Date Last Indicated Resolved Time COVID-19 Rule Out 05/13/2022 05/13/2022 05/13/2022 10:51 AM CDT documented as of this encounter Care Teams Psychiatric Social Worker Relationship Specialty Start Date End Date None, Provider, PCP - General 09/02/21 documented as of this encounter
--- OUTSIDE RECORDS SUMMARY | 2024-02-26 23:11 | XMS_ITS | Clinical Summary ---
Author Organization [facility] Address [facility] [place] [address] [place] [address] Care Team Providers Care Refueling Ramp Attendant Name Role Phone None, Provider MD Primary Care Provider Unavaila ble Allergies No known active allergies Medications chlorhexidine 4 % Liquid Apply topically daily as needed. 118 mL 2 Active ondansetron (ZOFRAN-ODT) 4 MG disintegrating tablet Take 1 tablet (4 mg total) by mouth every 8 (eight) hours as needed for Nausea. 20 tablet 2 Active HYDROcodone-acetam inophen (NORCO) 5-325 MG tabletIndications: Acute Pain < 3 Day Supply Take 1 tablet by mouth every 6 (six) hours as needed. Indications: Acute Pain < 3 Day Supply 12 tablet 2 Active loratadine-pseudoe phedrine ER (CLARITIN-D 12 HOUR) 5-120 MG 12 hr tablet Take 1 tablet by mouth 2 (two) times daily. 20 tablet 3 Active ketorolac (TORADOL) 10 MG tablet Take 1 tablet (10 mg total) by mouth every 6 (six) hours as needed for Pain. 20 tablet 3 Active fluticasone propionate (FLONASE) 50 MCG/ACT nasal spray 2 sprays by Each Nostril route daily. 9.9 mL 3 Active traMADol (ULTRAM) 50 MG tabletIndications: Acute Pain < 7 Day Supply Indications: Acute Pain < 7 Day Supply 1-2 tabs po q6 hours prn pain 16 tablet 3 Active Active Problems No known active problems Immunizations Name Administration Dates Next Due PFIZER COVID-19 (ORIGINAL FO RMULATION, PURPLE CAP) mRNA, LNP-S, PF, 30 MCG/0.3 ML DOSE 07/23/2020,07/02/2020 Social History Tobacco Use Types Packs/Day Years Used Date Smoking Tobacco: Never Smokeless Tobacco: Never Comments No Sex and Gender Information Value Date Recorded Sex Assigned at Not on file Legal Sex Female 7:59 AM CDT Gender Identity Not on file Sexual Orientation Not on file Last Filed Vital Signs Vital Sign Reading Time Taken Comments Blood Pressure 148/71 02/20/2023 1:21 PM WELLFIELD TECHNICIAN Pulse 89 02/20/2023 1:21 PM WELLFIELD TECHNICIAN Temperature 36.4 ??C (97.5 ??F) 02/20/2023 1:21 PM CS T Respiratory Rate 18 02/20/2023 1:21 PM WELLFIELD TECHNICIAN Oxygen Saturation 100% 02/20/2023 1:21 PM WELLFIELD TECHNICIAN Inhaled Oxygen Concentration - - Weight 86.5 kg (190 lb 11.2 oz) 02/20/2023 1:21 PM WELLFIELD TECHNICIAN Height 157.5 cm (5' 2 ) 02/20/2023 1:21 PM WELLFIELD TECHNICIAN Body Mass Index 34.88 02/20/2023 1:21 PM WELLFIELD TECHNICIAN Plan of Treatment Health Maintenance Due Date Last Done Comments Cervical Cancer Screening Pa p Smear (Age 30 to 64) Every 3 Years 1990 Annual Physical 09/13/1995 Hepatitis C 2010 DTaP, Tdap and Td Vaccines ( 1 - Tdap) 09/13/2011 Hepatitis B Vaccines (1 of 3 - 19+ 3-dose series) 09/13/2011 Cervical Cancer Screening Pa p with HPV Testing (Age 30 to 64) Every 5 Years 2022 Cervical Cancer Screening wi th HPV 2022 COVID-19 Vaccine ( - 2023-2 5 season) 2023 07/23/2020, 07/02/2020 Influenza Adult (#1) 2023 HPV Vaccines Aged Out No longer eligi ble based on patient's age to complete this topic Meningococcal Vaccine Aged Out No jayne bull eligible based on patient's age to complete this topic Pneumococcal Vaccine: Pediatrics (0 to 5 Years) and At-Risk Patients (6 to 64 Years) Aged Out No longer eligible b ased on patient's age to complete this topic RSV Immunizations Under 20 Months Aged Out No longer eligible b ased on patient's age to complete this topic Insurance Care Teams Refueling Ramp Attendant Relationship Specialty Start Date End Date None, Provider, PCP - General 09/02/21
--- OUTSIDE RECORDS SUMMARY | 2024-02-26 23:12 | XMS_ITS | Encounter Summary ---
Author Organization [employer] [employer] Facility Care Team Providers Care Gas Distribution Plant Operator Name Role Phone Unavailable Primary Care Provider Unavailabl e Encounter Details Date Type Department Care Team (Late st Contact Info) Description 12/26/2014 1:29 PM CDT - 12/26/2014 5:00 PM CDT Hospital Encounter [facility] Arminda Craig NP [address] [place] [address] Carpal tunnel syndrome of right wrist Social History Tobacco Use Types Packs/Day Years Used Date Smoking Tobacco: Never Assessed Comments Unknown Sex and Gender Information Value Date Recorded Sex Assigned at Not on file Legal Sex Female 10:07 AM VENDETTE Gender Identity Not on file Sexual Orientation Not on file documented as of this encounter Plan of Treatment Not on file documented as of this encounter Procedures Procedure Name Priority Date/Time Associated Diagnosis Comments BLOOD HUMAN IMMUNODEFICIENCY VIRUS Routine 12/26/2014 3:05 PM CDT XR HAND 3+ VW Routine 12/26/2014 2:46 PM CDT DISCHARGE LABORATORY CUMULATIVE REPORT 12/26/2014 documented in this encounter Results * Blood Human Immunodeficiency virus [HIV] rapid screen (12/26/2014 3:05 PM CDT) HIV ab Negative Negative HISTORICAL RESULTS Blood specimen (specimen) 12/26/2014 3:05 PM CDT us Pernell Tamez MD LAB BLOOD ORDERABLES Final Res ult HISTORICAL RESULTS * XR Hand 3+ VW (12/26/2014 2:46 PM CDT) Anatomical Region Laterality Modality N/A Radiographic Maryse ging 12/26/2014 2:46 PM CDT Narrative 12/26/2014 2:56 PM CDT MARIE ALMARAZ M.D. FINAL REPORT ACC# ??Date Time ??Exam [id number] Dec 26, 2014 14:46:00 [id number] Hand minimum 3 views R EXAMINATION: ?? Three-view examination of the right hand. IMPRESSION: ?? No fractures or dislocations are seen. The soft tissues of the hand and the articulations are normal. Requested By: ARMINDA WALLACE FBrittanyN.PBrittany Dictated By: ?? MARIE ALMARAZ M.D. ??on Dec 26 2014 ??2:56P This document has been electronically signed by: MARIE ALMARAZ M.D. on Dec 26 2014 ??2:56P [id number] Procedure Note Provider, MD Reynaldo - 06/28/2016 MARIE ALMARAZ M.D. FINAL REPORT ACC# Date Time Exam [id number] Dec 26, 2014 14:46:00 13927 Hand minimum 3 views R EXAMINATION: Three-view examination of the right hand. IMPRESSION: No fractures or dislocations are seen. The soft tissues of the hand and the articulations are normal. Requested By: ARMINDA WALLACE F.N.PBrittany Dictated By: MARIE ALMARAZ M.D. on Dec 26 2014 2:56P This document has been electronically signed by: MARIE ALMARAZ M.D. on Dec 26 2014 2:56P [id number] Historical Provider MD SIDHU XR PROCEDURES Final R esult * DISCHARGE LABORATORY CUMULATIVE REPORT (12/26/2014) Narrative 12/26/2014 Ordered by an unspecified provider. us Historical Provider LAB BLOOD ORDERABLES Ita l Result documented in this encounter Visit Diagnoses Diagnosis Carpal tunnel syndrome of right wrist documented in this encounter
--- OUTSIDE RECORDS SUMMARY | 2024-02-26 23:12 | XMS_ITS | Encounter Summary ---
Author Organization [facility] Address [facility] [facility] [place] [address] [place] [address] Care Team Providers Care Statistical Geneticist Name Role Phone None, Provider Primary Care Provider Unavaila ble Reason for Visit * Reason Comments Abscess Encounter Details Date Type Department Care Team (Late st Contact Info) Description 01/09/2022 9:46 AM SPA SUPERVISOR - 01/09/2022 10:26 AM SPA SUPERVISOR Emergency [facility] Emergency [address] [place] [address] Mary Victoria, ELECTRONICS COMPUTER MECHANIC [address] [place] [id number] Abscess Discharge Disposition: Home or Self Care [...] Coronavirus/COVID-19? No / Unsure 01/09/2022 9:07 AM SPA SUPERVISOR documented as of this encounter Last Filed Vital Signs Vital Sign Reading Time Taken Comments Blood Pressure 119/80 01/09/2022 9:33 AM SPA SUPERVISOR Pulse 64 01/09/2022 9:33 AM SPA SUPERVISOR Temperature 36.9 ??C (98.4 ??F) 01/09/2022 9:33 AM CS T Respiratory Rate 17 01/09/2022 9:33 AM SPA SUPERVISOR Oxygen Saturation 100% 01/09/2022 9:33 AM SPA SUPERVISOR Inhaled Oxygen Concentration - - Weight 91.4 kg (201 lb 8 oz) 01/09/2022 9:33 AM SPA SUPERVISOR Height 160 cm (5' 3 ) 01/09/2022 9:33 AM SPA SUPERVISOR Body Mass Index 35.69 01/09/2022 9:33 AM SPA SUPERVISOR documented in this encounter Discharge Instructions * Discharge Instructions* Mary Victoria NP - 01/09/2022 10:18 AM SPA SUPERVISOR Take all antibiotics as prescribed and until finished, even if your symptoms improve. Ibuprofen 800mg as needed for pain, for pain unrelieved with Ibuprofen, take hydrocodone as prescribed Taking narcotics may cause constipation, consider using a stool softener Follow up with Dr. Dejesus as listed SUPERVISOR SUPERVISOR * Attachments The following attachments cannot be sent through Care Everywhere. * Hidradenitis Suppurativa (Faroese) documented in this encounter Medications at Time of Discharge chlorhexidine 4 % Liquid Apply topically daily as needed. 118 mL 09/02/2021 ondansetron (ZOFRAN-ODT) 4 MG disintegrating tablet Take 1 tablet (4 mg total) by mouth every 8 (eight) hours as needed for Nausea. 20 tablet 12/08/2021 doxycycline hyclate (VIBRAMYCIN) 100 MG capsule Take 1 capsule (100 mg total) by mouth 2 (two) times daily for 10 days. 20 capsule 01/09/2022 2 HYDROcodone-acetamin ophen (NORCO) 5-325 MG tabletIndications:Ac [place] Pain < 3 Day Supply Take 1 tablet by mouth every 6 (six) hours as needed. Indications: Acute Pain < 3 Day Supply 12 tablet 01/09/2022 2 documented as of this encounter ED Notes * Mary Victoria NP - 01/09/2022 9:47 AM CST ED NOTE Chief Complaint Chief Complaint Patient presents with ??? Abscess History of Present Illness History provided by: Patient Rohini Castellon, a 31-year-old female, with history of hidradenitis suppurativa, presents to ED withcomplaints of abscess to left axilla that she is noted for the past 2 weeks. Denies any drainage orfever. States she has had to have these surgically removed in the past. Denies any significant pastmedical history. Medical History ALLERGIES: No Known Allergies MEDICATIONS: Prior to Admission medications Medication Sig Start Date End Date Taking? Authorizing Provider doxycycline hyclate (VIBRAMYCIN) 100 MG capsule Take 1 capsule (100 mg total) by mouth 2 (two) times daily for 10 days. 01/09/22 01/19/22 Yes Mary Victoria NP HYDROcodone-acetaminophen (NORCO) 5-325 MG tablet Take 1 tablet by mouth every 6 (six) hours as needed. Indications: Acute Pain < 3 Day Supply 01/09/22 Yes Mary Victoria NP chlorhexidine 4 % Liquid Apply topically [...] History Tobacco Use ??? Smoking status: Never Smoker ??? Smokeless tobacco: Never Used Review of Systems Review of Systems Constitutional: Negative. Negative for chills and fever. HENT: Negative. Eyes: Negative. Respiratory: Negative. Cardiovascular: Negative. Gastrointestinal: Negative. Genitourinary: Negative. Musculoskeletal: Negative. Skin: Negative for rash. Left axilla abscess Neurological: Negative. Psychiatric/Behavioral: Negative. Physical Exam Filed Vitals: 01/09/22 0933 BP: 119/80 Pulse: 64 Resp: 17 Temp: 98.4 ??F (36.9 ??C) TempSrc: Oral SpO2: 100% Weight: 91.4 kg (201 lb 8 oz) Height: 5' 3 (1.6 m) Physical Exam Vitals and nursing note reviewed. Constitutional: General: She is not in acute distress. Appearance: Normal appearance. She is well-developed. She is not ill-appearing. HENT: Head: Normocephalic and atraumatic. Mouth/Throat: Pharynx: Uvula midline. Cardiovascular: Rate and Rhythm: Normal rate and regular rhythm. Heart sounds: Normal heart sounds, S1 normal and S2 normal. Pulmonary: Effort: Pulmonary effort is normal. No respiratory distress. Breath sounds: Normal breath sounds. Musculoskeletal: Cervical back: Normal range of motion and neck supple. Skin: General: Skin is warm and dry. Coloration: Skin is not pale. Findings: No rash. Comments: Abscess left axilla, no erythema or drainage Neurological: Mental Status: She is alert and oriented to person, place, and time. Psychiatric: Speech: Speech normal. Behavior: Behavior normal. Diagnostic Studies / Procedures ELECTROCARDIOGRAMS: No results found for this visit on 01/09/22. LABORATORY STUDIES: No results found for this visit on 01/09/22. IMAGING STUDIES No orders to display ED Course / Medical Decision Making MDM Number of Diagnoses or Management Options Hidradenitis suppurativa of left axilla: new, no workup Patient Progress Patient progress: stable ED Course as of 01/09/22 1138 WedJan 09, 2022 1136 Patient is a 31-year-old female, with history of hidradenitis suppurativa, presents to ED withcomplaints of abscess to left axilla that she is noted for the past 2 weeks. Denies any drainage orfever. States she has had to have these surgically removed in the past. I&D offered, patient declined. Will administer pain medication and discharge home with Doxycycline and follow up in plastics office. Patient agreeable with plan. [TU] ED Course User Index [TU] Mary Victoria NP Medications HYDROcodone-acetaminophen (NORCO) 5-325 MG tablet 1 tablet (1 tablet Oral Given 01/09/22 1018) Clinical Impression Hidradenitis suppurativa of left axilla (Primary) Disposition: Discharge Discharge Medication List as of 01/09/2022 10:25 AM START taking these medications Details doxycycline hyclate (VIBRAMYCIN) 100 MG capsule Take 1 capsule (100 mg total) by mouth 2 (two) times daily for 10 days., Starting Wed01/09/2022, Until Wed01/19/2022, Eprescribe Class: [id number] [place] [address] [id number], AT [facility] (Ph#: [phone]) HYDROcodone-acetaminophen (NORCO) 5-325 MG tablet Take 1 tablet by mouth every 6 (six) hours as needed. Indications: Acute Pain < 3 Day Supply, Starting Wed01/09/2022, Eprescribe Class: Eprescribe [facility] [place] [address] [address], AT [facility] (Ph#: [phone]) Follow-up: Rafael Dejesus MD [address] [facility] [phone] MARY VICTORIA NP 01/09/2022 Mary Victoria NP 01/09/22 1134 Cosigned by Chato Tirado MD at 01/09/2022 12:35 PM SPA SUPERVISOR SUPERVISOR SUPERVISOR * Tiffany Moody RN - 01/09/2022 9:07 AM CST Pt arrives to triage with c.o abscess under left axilla. SUPERVISOR documented in this encounter Plan of Treatment Not on file documented as of this encounter Visit Diagnoses Diagnosis Hidradenitis suppurativa of left axilla- Primary Hidradenitis documented in this encounter Administered Medications Inactive Administered Medications - up to 3 most recent administrations Medication Order MAR Action Action Date Dose Rate Site HYDROcodone-acetaminophen (NORCO) 5-325 MG tablet 1 tablet 1 tablet, Oral, Once, 1 dose, On Wed01/09/22 at 1015, Maximum dose of acetaminophen is 4000 mg from all sources in 24 hours. Given 01/09/2022 10:18 AM SPA SUPERVISOR 1 tablet documented in this encounter Active and Recently Administered Medications Times are shown in SPA SUPERVISOR. Scheduled Medication Order 01/07/2022 01/08/2022 01/09/2022 HYDROcodone-acetaminophen (NORCO) 5-325 MG tablet 1 tablet (COMPLETED) 1 tablet, Oral, Once, 1 dose, On Wed01/09/22 at 1015, Maximum dose of acetaminophen is 4000 mg from all sources in 24 hours. 1018 (Given - Provid er: Jessica Borden RN) documented in this encounter Care Teams Statistical Geneticist Relationship Specialty Start Date End Date None, Provider, PCP - General 09/02/21 documented as of this encounter
--- OUTSIDE RECORDS SUMMARY | 2024-02-26 23:12 | XMS_ITS | Encounter Summary ---
Author Organization [facility] Healthcare Address [address] [place] [address] Care Team Providers Care Industrial Maintenance Repairer Helper Name Role Phone No, Physician Primary Care Provider [phone] Reason for Visit * Reason Comments Wound Check Encounter Details Date Type Department Care Team (Late st Contact Info) Description 04/29/2023 5:37 PM UTILITY TELLER - 04/29/2023 6:10 PM UTILITY TELLER Emergency [facility] Emergency Department [address] [place] [address] Hidradenitis suppurativa of left axilla (Primary Dx); Acute axillary lymphadenitis Discharge Disposition: Discharge to home or self care Social History Tobacco Use Types Packs/Day Years Used Date Smoking Tobacco: Never Assessed Personal Safety Answer Date Recorded Have you ever been in or are you currently in a harmful physical or emotional relationship or is someone making you feel afraid or unsafe? Denies 04/30/2023 Comments Unknown Sex and Gender Information Value Date Recorded Sex Assigned at Not on file Legal Sex Female 10:07 AM UTILITY TELLER Gender Identity Not on file Sexual Orientation Not on file documented as of this encounter Last Filed Vital Signs Vital Sign Reading Time Taken Comments Blood Pressure 137/87 04/29/2023 5:36 PM UTILITY TELLER Pulse 78 04/29/2023 5:36 PM UTILITY TELLER Temperature 36.6 ??C (97.8 ??F) 04/29/2023 5:36 PM CS T Respiratory Rate 16 04/29/2023 5:36 PM UTILITY TELLER Oxygen Saturation 100% 04/29/2023 5:36 PM UTILITY TELLER Inhaled Oxygen Concentration - - Weight 82.6 kg (182 lb) 04/29/2023 5:36 PM UTILITY TELLER Height 160 cm (5' 3 ) 04/29/2023 5:36 PM UTILITY TELLER Body Mass Index 32.24 04/29/2023 5:36 PM UTILITY TELLER documented in this encounter Discharge Instructions * Attachments The following attachments cannot be sent through Care Everywhere. * Hidradenitis Suppurativa, Abx (Lao) * Adenitis (AfterCare(R) Instructions(ER/ED)) (Lao) documented in this encounter Medications at Time of Discharge acetaminophen-code ine (TYLENOL #2) 300-15 mg per tabletIndications: Hidradenitis suppurativa of left axilla,Acute axillary lymphadenitis Take 1 tablet by mouth every 4 (four) hours as needed (P.r.n. pain not relieved by naproxen alone. Take with food.) Collaborating physician Rao Mario MD 10 tablet 4 clindamycin (CLEOCIN T) 1 % lotion Apply topically 2 (two) times a day Apply twice daily as directed to left arm pit. Note to pharmacist: May substitute with gentamicin 0.1% cream or mupirocin ointment b.i.d., Disp. 30 gm. Collaborating physician Rao Mario MD 60 mL 1 4 doxycycline (VIBRAMYCIN) 100 mg capsuleIndications :Hidradenitis suppurativa of left axilla,Acute axillary lymphadenitis Take 1 tablet/capsule (100 mg total) by mouth 2 (two) times a day Two p.o. in the 1st dose then 1 p.o. b.i.d. thereafter for 10 days. Collaborating physician Rao Mario MD 20 capsule 4 naproxen (NAPROSYN) 500 mg tabletIndications: Hidradenitis suppurativa of left axilla,Acute axillary lymphadenitis Take 1 tablet (500 mg total) by mouth 2 (two) times a day with meals Take as directed to reduce pain and swelling. Collaborating physician Rao Mario MD 30 tablet 4 documented as of this encounter Ordered Prescriptions Prescription Sig Dispense Quantity Refills Last Filled Start Date End Date acetaminophen-code ine (TYLENOL #2) 300-15 mg per tabletIndications: Hidradenitis suppurativa of left axilla,Acute axillary lymphadenitis Take 1 tablet by mouth every 4 (four) hours as needed (P.r.n. pain not relieved by naproxen alone. Take with food.) Collaborating physician Rao Mario MD 10 tablet 4 naproxen (NAPROSYN) 500 mg tabletIndications: Hidradenitis suppurativa of left axilla,Acute axillary lymphadenitis Take 1 tablet (500 mg total) by mouth 2 (two) times a day with meals Take as directed to reduce pain and swelling. Collaborating physician Rao Mario MD 30 tablet 4 clindamycin (CLEOCIN T) 1 % lotion Apply topically 2 (two) times a day Apply twice daily as directed to left arm pit. Note to pharmacist: May substitute with gentamicin 0.1% cream or mupirocin ointment b.i.d., Disp. 30 gm. Collaborating physician Rao Mario MD 60 mL 1 4 doxycycline (VIBRAMYCIN) 100 mg capsuleIndications :Hidradenitis suppurativa of left axilla,Acute axillary lymphadenitis Take 1 tablet/capsule (100 mg total) by mouth 2 (two) times a day Two p.o. in the 1st dose then 1 p.o. b.i.d. thereafter for 10 days. Collaborating physician Rao Mario MD 20 capsule 4 acetaminophen-code ine (TYLENOL with CODEINE #3) 300-30 mg per tabletIndications: Hidradenitis suppurativa of left axilla,Acute axillary lymphadenitis Take 1 tablet by mouth every 6 (six) hours as needed for pain P.r.n. pain not relieved by naproxen alone. Take with food. Collaborating physician Rao Mario MD 10 tablet 4 04/29/19 24 documented in this encounter Discharge Disposition Disposition Code Departure Means Destination Comment s Discharge to home or self care documented in this encounter ED Notes * Sammy Vásquez PA - 04/29/2023 5:57 PM CST HPI Chief Complaint Patient presents with Wound Check 32-year-old female with past medical history of hidradenitis suppurativa presents with chief complaint of acute flare of her HS to the left axilla. Onset 1 week ago. Getting gradually worse. Complains of constant severe sharp aching pain aggravated by touch and activity. Taking and applying [id number] medication without relief. Pain does not radiate. Denies ulceration or discharge. Denies fever or chills. History provided by: Patient twisting press operator used: No Patient History: Patient Active Problem List Diagnosis Date Noted Hidradenitis suppurativa of left axilla 04/29/2023 History reviewed. No pertinent past medical history. History reviewed. No pertinent surgical history. History reviewed. No pertinent family history. Social History Tobacco Use Smoking status: None Smokeless tobacco: None Substance and Sexual Activity Alcohol use: None Drug use: None Sexual activity: None Social History Social History Narrative Not on file Review of Systems Review of Systems All other systems reviewed negative. All available allergies, past medical history, past surgical history, social history, and medications reviewed from the medical record, nursing notes, and with patient Physical Exam ED Triage Vitals [04/29/23 1736] Temp Pulse Resp BP SpO2 36.6 ??C (97.8 ??F) 78 16 137/87 100 % Temp src Heart Rate Source Patient Position BP Location FiO2 (%) Temporal -- -- -- -- Height Height Method Weight Weight Method 1.6 m (5' 3 ) Stated 82.6 kg (182 lb) Stated Physical Exam Vitals and nursing note reviewed. Constitutional: General: She is not in acute distress. Appearance: Normal appearance. She is not ill-appearing, toxic-appearing or diaphoretic. HENT: Head: Normocephalic. Right Ear: External ear normal. Left Ear: External ear normal. Nose: Nose normal. Mouth/Throat: Mouth: Mucous membranes are moist. Pharynx: Oropharynx is clear. Cardiovascular: Rate and Rhythm: Normal rate and regular rhythm. Pulses: Normal pulses. Heart sounds: Normal heart sounds. Pulmonary: Effort: Pulmonary effort is normal. Breath sounds: Normal breath sounds. Skin: General: Skin is warm and dry. Comments: Erythema and tenderness to the left axilla with left axillary lymphadenitis. Negative forulceration or discharge. Neurological: General: No focal deficit present. Mental Status: She is alert and oriented to person, place, and time. Psychiatric: Mood and Affect: Mood normal. Behavior: Behavior normal. Thought Content: Thought content normal. Judgment: Judgment normal. Voice recognition software [employer] was used to dictate and transcribe this document. Energy Systems Laboratory Director variances may occur. Despite proofreading, typographical errors may occur. MDM Medical Decision Making 32-year-old female with past medical history of hidradenitis suppurativa. Based on history and physical exam findings appears to be acute exacerbation of HS with left axillary regional lymphadenitis/lymphadenopathy. Discharge plan is to start patient on doxycycline p.o., topical clindamycin lotion,naproxen to reduce inflammation and swelling, and Tylenol #3 (Disp #10) for breakthrough pain. Patient given contact information to get established with a PCP and General surgery. Return for worsening signs/symptoms. Problems Addressed: Acute axillary lymphadenitis: acute illness or injury Hidradenitis suppurativa of left axilla: chronic illness or injury Risk Prescription drug management. Final diagnoses: Hidradenitis suppurativa of left axilla Acute axillary lymphadenitis Sammy Vásquez PA 04/29/231801 Cosigned by Nuria Lee MD at 04/29/2023 6:54 PM UTILITY TELLER ITY TELLER ITY TELLER * Yasmin Connors RN - 04/29/2023 5:35 PM CST Pt to ED for c/o a boil under my left arm for 7 days. ITY TELLER documented in this encounter Plan of Treatment Not on file documented as of this encounter Visit Diagnoses Diagnosis Hidradenitis suppurativa of left axilla- Primary Hidradenitis suppurativa of left axilla Acute axillary lymphadenitis Acute axillary lymphadenitis documented in this encounter Discontinued Medications Medication Sig Discontinue Reason Start Date End Da te acetaminophen-codeine (TYLENOL with CODEINE #3) 300-30 mg per tabletIndications:Hidr adenitis suppurativa of left axilla,Acute axillary lymphadenitis Take 1 tablet by mouth every 6 (six) hours as needed for pain P.r.n. pain not relieved by naproxen alone. Take with food. Collaborating physician Rao Mario MD Dose adjustment 04/29/2023 04/29/2023 documented as of this encounter Care Teams Industrial Maintenance Repairer Helper Relationship Specialty Start Date End Date No, Physician PCP - General 04/29/23 documented as of this encounter
--- OUTSIDE RECORDS SUMMARY | 2024-02-26 23:12 | XMS_ITS | Encounter Summary ---
Author Organization [facility] Address [facility] [place] [address] [place] [address] Care Team Providers Care Entry Level Staff Accountant Name Role Phone None, Provider Primary Care Provider Unavaila ble Reason for Visit * Reason Comments Rash Encounter Details Date Type Department Care Team (Late st Contact Info) Description 10/22/2021 9:18 AM CDT - 10/22/2021 9:[address] [facility] Emergency [address] [place] [address] Karly Renee, CLOSING MANAGER [address] [place] [id number] Rash Discharge Disposition: Home or Self Care (Routine [...] suspected to have Coronavirus/COVID-19? No / Unsure 10/22/2021 9:02 AM CDT documented as of this encounter Last Filed Vital Signs Vital Sign Reading Time Taken Comments Blood Pressure 124/71 10/22/2021 9:15 AM CDT Pulse 61 10/22/2021 9:15 AM CDT Temperature 37.1 ??C (98.8 ??F) 10/22/2021 9:15 AM CD T Respiratory Rate 20 10/22/2021 9:15 AM CDT Oxygen Saturation 100% 10/22/2021 9:15 AM CDT Inhaled Oxygen Concentration - - Weight 92.6 kg (204 lb 2.3 oz) 10/22/2021 9:15 A M CDT Height 157.5 cm (5' 2 ) 10/22/2021 9:15 AM CDT Body Mass Index 37.34 10/22/2021 9:15 AM CDT documented in this encounter Discharge Instructions * Discharge Instructions* Karly Gonzalez NP - 10/22/2021 9:30 AM CDT -Take the pills as directed -You may see a slight improvement in the rash but it may take 2-4 weeks for it to clear. -Keep the area clean, dry, cool, and open to air as much as possible. -You may use a hairdryer on the low, cool setting to help dry yourself in areas you are unable to reach. -Take medications as directed. -Follow up with your doctor or doctor referral. Call next business day to schedule an appointment for ED follow up in 7-10 days. Follow up with your doctor in 3 days if no improvement. -Return to the Emergency Department for new or worsening symptoms. Please read and follow additional written instructions provided. documented in this encounter Medications at Time of Discharge chlorhexidine 4 % Liquid Apply topically daily as needed. 118 mL 09/02/2021 fluconazole (DIFLUCAN) 150 MG tablet Take 1 tablet (150 mg total) by mouth once for 1 dose. Take one tablet today and one tablet on10/25 2 tablet 10/22/2021 2 documented as of this encounter ED Notes * Karly Gonzalez NP - 10/22/2021 9:28 AM CDT ED NOTE Chief Complaint Chief Complaint Patient presents with ??? Rash History of Present Illness 31 year old female who presents to the ER with complaints of a rash to her perineum x 3 days. She states that she noticed that it was itching after she shaved the area and then noticed white patches.She denies dysuria or any other complaints at this time. History provided by: Patient certified court/medical interpreter used: No Medical History ALLERGIES: No Known Allergies MEDICATIONS: Prior to Admission medications Medication Sig Start Date End Date Taking? Authorizing Provider fluconazole (DIFLUCAN) 150 MG tablet Take 1 tablet (150 mg total) by mouth once for 1 dose. Take one tablet today and one tablet on10/2510/22/21 10/22/21 Yes Karly Gonzalez NP chlorhexidine 4 % Liquid Apply topically daily as needed. 09/02/21 Lauri Brennan NP PAST MEDICAL HISTORY: Past Medical History: Diagnosis Date ??? Known health problems: none PAST SURGICAL HISTORY: History reviewed. No pertinent surgical history. FAMILY HISTORY: No family history on file. SOCIAL HISTORY: Social History Tobacco Use ??? Smoking status: Never Smoker ??? Smokeless tobacco: Never Used Review of Systems Review of Systems Skin: Positive for rash. All other systems reviewed and are negative. Physical Exam Filed Vitals: 10/22/21 0915 BP: 124/71 Pulse: 61 Resp: 20 Temp: 98.8 ??F (37.1 ??C) TempSrc: Oral SpO2: 100% Weight: 92.6 kg (204 lb 2.3 oz) Height: 5' 2 (1.575 m) Physical Exam Vitals and nursing note reviewed. Constitutional: General: She is awake. Appearance: She is morbidly obese. She is not ill-appearing or toxic-appearing. Cardiovascular: Rate and Rhythm: Normal rate and regular rhythm. Heart sounds: S1 normal and S2 normal. Pulmonary: Effort: Pulmonary effort is normal. Breath sounds: Normal breath sounds and air entry. Abdominal: General: Bowel sounds are normal. Palpations: Abdomen is soft. Tenderness: There is no abdominal tenderness. There is no left CVA tenderness or guarding. Genitourinary: Pubic Area: Rash (fungal) present. Labia: Right: No rash, tenderness or lesion. Left: No rash, tenderness or lesion. Musculoskeletal: Comments: Moving upper and lower extremities with purpose Skin: General: Skin is warm. Capillary Refill: Capillary refill takes less than 2 seconds. Neurological: General: No focal deficit present. Mental Status: She is alert and oriented to person, place, and time. GCS: GCS eye subscore is 4. GCS verbal subscore is 5. GCS motor subscore is 6. Psychiatric: Behavior: Behavior is cooperative. Diagnostic Studies / Procedures ELECTROCARDIOGRAMS: No results found for this visit on 10/22/21. LABORATORY STUDIES: No results found for this visit on 10/22/21. IMAGING STUDIES No orders to display ED Course / Medical Decision Making MDM Number of Diagnoses or Management Options Candidiasis: minor Patient Progress Patient progress: stable ED Course as of 10/22/21 09WedOct 22, 2021 09 31 year old female who presents to the ER with complaints of a rash to her perineum x 3 days. She states that she noticed that it was itching after she shaved the area and then noticed white patches. She denies dysuria or any other complaints at this time. Physical exam findings consistent with yeast. Discharged home with diflucan and to f/u with PCP I provided definitive care for this patient. Discussed all results and incidental findings with patient. Supportive measures discussed. Signs and symptoms to monitor for, reasons to return to the Emergency Department, discharge, and follow-up instructions given to patient. Patient verbalized understanding, denies further questions, and agreeswith plan. VS normal at discharge. Cosigner will be: Dr. Lebron [KV] ED Course User Index [KV] Karly Gonzalez NP Medications - No data to display Clinical Impression Candidiasis (Primary) Disposition: Discharge Current Discharge Medication List START taking these medications Details fluconazole (DIFLUCAN) 150 MG tablet Take 1 tablet (150 mg total) by mouth once for 1 dose. Take one tablet today and one tablet on10/25 Qty: 2 tablet, Refills: 0 Class: Eprescribe Pharmacy: [facility]/pharmacy #[id number] [facility] [id number], AT [facility] (Ph#: [phone]) Follow-up: [address] [address] Schedule an appointment as soon as possible for a visit Karly Gonzalez NP 10/22/2021 Karly Gonzalez NP 10/22/21934 Cosigned by Noe Lebron MD at 11/01/2021 11:21 AM CDT * Renetta Owens RN - 10/22/2021 9:03 AM CDT Pt arrives via pov with complaints of a rash on her perineum that started about 3 days ago. Pt states that is it itchy. documented in this encounter Plan of Treatment Not on file documented as of this encounter Visit Diagnoses Diagnosis Candidiasis- Primary Candidiasis of unspecified site documented in this encounter Care Teams Entry Level Staff Accountant Relationship Specialty Start Date End Date None, Provider, PCP - General 09/02/21 documented as of this encounter
--- OUTSIDE RECORDS SUMMARY | 2024-02-26 23:12 | XMS_ITS | Encounter Summary ---
Author Organization [facility] Facility Care Team Providers Care Caterers Helper Name Role Phone Unavailable Primary Care Provider Unavailabl e Encounter Details Date Type Department Care Team (Late st Contact Info) Description 09/10/2013 10:39 AM CDT - 09/10/2013 12:35 PM CDT Hospital Encounter [facility] Aman Garcia MD [address] [place] [address] Cough Social History Tobacco Use Types Packs/Day Years Used Date Smoking Tobacco: Never Assessed Comments Unknown Sex and Gender Information Value Date Recorded Sex Assigned at Not on file Legal Sex Female 10:07 AM APPLICATIONS TESTER Gender Identity Not on file Sexual Orientation Not on file documented as of this encounter Plan of Treatment Not on file documented as of this encounter Procedures Procedure Name Priority Date/Time Associated Diagnosis Comments BLOOD HUMAN IMMUNODEFICIENCY VIRUS Routine 09/10/2013 12:15 PM CDT DISCHARGE LABORATORY CUMULATIVE REPORT Routine 09/10/2013 12:00 AM CDT documented in this encounter Results * Blood Human Immunodeficiency virus [HIV] rapid screen (09/10/2013 12:15 PM CDT) HIV ab Negative Negative HISTORICAL RESULTS Blood specimen (specimen) 09/10/2013 12:15 PM CDT us Pernell Tamez MD LAB BLOOD ORDERABLES Final Res ult HISTORICAL RESULTS * Discharge Laboratory Cumulative Report (09/10/2013 12:00 AM CDT) 09/10/2013 Narrative HISTORICAL RESULTS - 09/11/2013 3:20 PM CDT ?[facility] ?Department of Laboratories ? [address] [facility] [place] ? [place] [address] Patient Name: ??ANEESH COBB Med Rec Number: [id number] Fin Number: ?[id number] Date: ?1990 Sex/Age: ? Female 22 years Admit Date: ?09/10/2013 Discharge Date: 09/10/2013 Doctor: ?Aman Whitaker Facility: ?[facility] Location: ?[facility] Chart Printed: 09/11/2013 15:20 ?? * Abnormal ?? C Critical ?? f Footnote ?? ^ Corrected ?? L Low ?? H High ? i Interp Data ?? @ Reference Lab ?Chart Type:Cumulative ?POINT OF CARE TESTS ? Serology ?Test: RapHIV 1/2 POC ? Reference: [Negative] ? Units: 09/10/2013 ?? 12:15:00 ?? Negative us Historical Provider LAB BLOOD ORDERABLES Ita herman Result Performing Organization Address City/State/[facility] Co de Phone Number HISTORICAL RESULTS documented in this encounter Visit Diagnoses Diagnosis Cough documented in this encounter
--- OUTSIDE RECORDS SUMMARY | 2024-02-26 23:12 | XMS_ITS | Encounter Summary ---
Author Organization [facility] Address Formerly [facility] [place] [address] [place] [address] Care Team Providers Care Accounting Methods Analyst Name Role Phone None, Provider Primary Care Provider Unavaila ble Reason for Visit * Reason Comments Vomiting Nausea Encounter Details Date Type Department Care Team (Late st Contact Info) Description 12/08/2021 3:56 AM CDT - 12/08/2021 6:39 AM CDT Emergency [facility] Emergency [address] [place] [address] Alcira Savage, MENTAL HEALTH ASSISTANT [address] [place] [phone] Vomiting; Nausea Discharge Disposition: Home or Self Care (Routine [...] suspected to have Coronavirus/COVID-19? No / Unsure 12/08/2021 3:45 AM CDT documented as of this encounter Last Filed Vital Signs Vital Sign Reading Time Taken Comments Blood Pressure 115/68 12/08/2021 3:51 AM CDT Pulse 78 12/08/2021 3:51 AM CDT Temperature 36.9 ??C (98.4 ??F) 12/08/2021 3:51 AM CD T Respiratory Rate 16 12/08/2021 3:51 AM CDT Oxygen Saturation 96% 12/08/2021 3:51 AM CDT Inhaled Oxygen Concentration - - Weight 93.7 kg (206 lb 9.1 oz) 12/08/2021 3:51 A M CDT Height 157.5 cm (5' 2 ) 12/08/2021 3:51 AM CDT Body Mass Index 37.78 12/08/2021 3:51 AM CDT documented in this encounter Discharge Instructions * Discharge Instructions* Alcira Savage NP - 12/08/2021 6:30 AM CDT 1. Increase fluid intake to prevent dehydration. Pedialyte, Gatorade, sports drinks, and broths or soups are best. 2. Once fluids are tolerated well, advance to starchy foods such as potatoes, pasta, rice, and wheat. Advance diet as tolerated avoiding spicy or greasy foods. 3. Take medications as directed if prescribed. 4. Follow up with your doctor or doctor referral. Call next to schedule an appointmentfor ED follow up in 7-10 days. Follow up with your doctor in 3 days if no improvement. 5. Return to the Emergency Department for new or worsening symptoms. Please read and follow additional written instructions provided. * Attachments The following attachments cannot be sent through Care Everywhere. * Nausea and Vomiting Discharge Instructions, Adult (Taiwanese) * Viral Gastroenteritis (Taiwanese) documented in this encounter Medications at Time of Discharge chlorhexidine 4 % Liquid Apply topically daily as needed. 118 mL 09/02/2021 ondansetron (ZOFRAN-ODT) 4 MG disintegrating tablet Take 1 tablet (4 mg total) by mouth every 8 (eight) hours as needed for Nausea. 20 tablet 12/08/2021 documented as of this encounter ED Notes * Sophia Domingo RN - 12/08/2021 6:10 AM CDT Pt states she feels she is unable to void at this time. State once liter of fluids are done she maybe able to. * Alcira Savage NP - 12/08/2021 5:00 AM CDT Chief Complaint Chief Complaint Patient presents with ??? Vomiting ??? Nausea History of Present Illness 31 year old female present with fatigue, nausea and vomiting onset this morning. Reports 2 episodesof vomiting. Emesis is non bilious non bloody. Denies fever, abdominal pain or diarrhea. Denies melena or hematochezia. Denies chest pain or shortness of breath. Reports she was recently around sick contacts. Medical History ALLERGIES: No Known Allergies MEDICATIONS: Prior to Admission medications Medication Sig Start Date End Date Taking? Authorizing Provider ondansetron (ZOFRAN-ODT) 4 MG disintegrating tablet Take 1 tablet (4 mg total) by mouth every 8 (eight) hours as needed for Nausea. 12/08/21 Yes Alcira Savage NP chlorhexidine 4 % Liquid Apply topically [...] Used Review of Systems Review of Systems Gastrointestinal: Positive for nausea and vomiting. All other systems reviewed and are negative. Physical Exam Filed Vitals: 12/08/21 0351 BP: 115/68 Pulse: 78 Resp: 16 Temp: 98.4 ??F (36.9 ??C) TempSrc: Oral SpO2: 96% Weight: 93.7 kg (206 lb 9.1 oz) Height: 5' 2 (1.575 m) Physical Exam Vitals and nursing note reviewed. Constitutional: General: She is not in acute distress. Appearance: Normal appearance. She is normal weight. She is not ill-appearing, toxic-appearing or diaphoretic. HENT: Head: Normocephalic and atraumatic. Right Ear: Tympanic membrane, ear canal and external ear normal. Left Ear: Tympanic membrane, ear canal and external ear normal. Nose: Nose normal. Mouth/Throat: Mouth: Mucous membranes are moist. Pharynx: Oropharynx is clear. Eyes: Conjunctiva/sclera: Conjunctivae normal. Pupils: Pupils are equal, round, and reactive to light. Neck: Vascular: No carotid bruit. Cardiovascular: Rate and Rhythm: Normal rate and regular rhythm. Pulses: Normal pulses. Radial pulses are 2+ on the right side and 2+ on the left side. Heart sounds: Normal heart sounds. Pulmonary: Effort: Pulmonary effort is normal. Breath sounds: Normal breath sounds. Abdominal: General: Abdomen is flat. Bowel sounds are normal. Palpations: Abdomen is soft. Musculoskeletal: General: Normal range of motion. Cervical back: Normal range of motion and neck supple. No rigidity or tenderness. Lymphadenopathy: Cervical: No cervical adenopathy. Skin: General: Skin is warm and dry. Capillary Refill: Capillary refill takes less than 2 seconds. Neurological: General: No focal deficit present. Mental Status: She is alert and oriented to person, place, and time. Mental status is at baseline. Cranial Nerves: No cranial nerve deficit. Psychiatric: Mood and Affect: Mood normal. Diagnostic Studies / Procedures ELECTROCARDIOGRAMS: No results found for this visit on 12/08/21. LABORATORY STUDIES: Results for orders placed or performed during the hospital encounter of 12/08/21 CBC W/DIFF AUTOMATED Result Value Ref Range WBC 5.4 4.0 - 10.8 x10'3/uL RBC 4.22 4.10 - 5.40 x10'6/uL HGB 12.6 12.0 - 16.0 G/DL HCT 38.4 36.0 - 47.0 % MCV 91.0 78.0 - 100.0 FL MCH 29.9 27.0 - 31.0 PG MCHC 32.8 (L) 33.0 - 36.0 G/DL RDW 12.2 11.5 - 14.5 % PLT 289 150 - 350 x10'3/uL MPV 8.7 7.4 - 10.4 FL ABS. NEUTROPHILS 3.16 1.60 - 8.30 x10'3/uL ABS. LYMPHOCYTES 1.54 0.80 - 4.70 x10'3/uL ABS. MONOCYTES 0.60 0.00 - 1.50 x10'3/uL ABS. EOSINOPHILS 0.08 0.00 - 0.40 x10'3/uL ABS. BASOPHILS 0.02 0.00 - 0.20 x10'3/uL ABS. IMMATURE GRANULOCYTES 0.02 0.00 - 0.03 x10'3/uL ABS. NUCLEATED RBC'S 0.00 0.0 x10'3/uL BASIC METABOLIC PANEL Result Value Ref Range SODIUM 142 136 - 145 MMOL/L POTASSIUM 3.8 3.5 - 5.1 MMOL/L CHLORIDE S/P/B 108 (H) 98 - 107 MMOL/L CO2 27.2 21.0 - 32.0 MMOL/L GLUCOSE 99 74 - 106 MG/DL BUN 12 7 - 18 MG/DL CREATININE S/P/B 1.06 (H) 0.55 - 1.02 MG/DL CALCIUM 9.1 8.5 - 10.1 MG/DL ANION GAP 6.8 5.0 - 15.0 MMOL/L OSMOLALITY (CALC) 294 MOSM/KG GFR ESTIMATE 73 (L) >90 ML/MIN/1.73 M2 GFR NOTES GFR REFERENCES: LIPASE Result Value Ref Range LIPASE 109 73 - 393 UNITS/L HEPATIC FUNCTION PANEL Result Value Ref Range BILIRUBIN TOTAL S/P/B 0.3 0.2 - 1.0 MG/DL BILIRUBIN DIRECT S/P/B <0.1 0.0 - 0.2 MG/DL ALKALINE PHOSPHATASE S/P/B 62 37 - 98 U/L AST 20 15 - 37 U/L ALT 19 13 - 56 U/L TOTAL PROTEIN S/P/B 7.8 6.4 - 8.2 G/DL ALBUMIN S/P/B 3.5 3.4 - 5.0 G/DL HCG QUANT (SERUM)-CHORIONIC GONADOTROPIN Result Value Ref Range HCG, QUANTITATIVE <1 MIU/ML BIOFIRE PCR UPPER RESPIRATORY PROFILE (RESPIRATORY PCR [...] (RESP) NOT DETECTED NOT DETECTED FIRST TEST NO EMPLOYED IN HEALTHCARE NO SYMPTOMATIC DEFINED BY CDC YES DATE OF SYMPTOM ONSET 20211207 HOSPITALIZATION STATUS NO PATIENT IN ICU UNKNOWN RESIDENT OF [facility] CARE NO NOT IMAGING STUDIES No orders to display ED Course / Medical Decision Making MDM Number of Diagnoses or Management Options Viral gastroenteritis: new and requires workup Diagnosis management comments: VSS. The patient is non toxic appearing. Differential diagnoses wereconsidered and discussed with the patient. the patient's history, physical exam, and ancillary studies were taken into consideration for the patient's treatment. After reviewing the information and discussing the potential outcomes / risks/ benefits and the patient's disposition was agreed upon. Unless otherwise stated, this patient was seen independently without collaborative physician. Co signing Casey SHARMA Amount and/or Complexity of Data Reviewed Clinical lab tests: reviewed and ordered Review and summarize past medical records: yes Patient Progress Patient progress: stable ED Course as of 12/08/21 0638 Mon Dec 08, 2021 0520 BIOFIRE PCR UPPER RESPIRATORY PROFILE (RESPIRATORY PCR PANEL 2) unremarkable [LS] 0534 Patient reports an episode of vomiting.Now reports the nausea has returned. Still denies abdominal pain. Ordered CBC, chemistry with hepatic functions, UA. IV Reglan and IV fluids. Will re-evaluate. [LS] 0605 CBC W/DIFF AUTOMATED(!) No evidence of leukocytosis or acute anemia. No indications to order additional imaging. [LS] 0622 HCG, QUANTITATIVE: <1 [LS] 0622 LIPASE: 109 [LS] 0622 HEPATIC FUNCTION PANEL unremarkable [LS] 0623 BASIC METABOLIC PANEL(!) unremarkable [LS] 0635 Discussed lab findings with patient. She reports she is feeling better, denies urinary symptoms or flank pain. She asks to be discharged. Symptoms of vomiting likely from viral gastroenteritis. Prescribed zofran for at home. Given follow up referral to establish Primary Care. Discussed return precautions. [LS] ED Course User Index [LS] Alcira Savage NP Clinical Impression Viral gastroenteritis (Primary) Disposition: Discharge Alcira Savage NP 12/08/21 0638 Cosigned by Herrera Peña MD at 12/15/2021 6:45 PM CDT Associated attestation - Herrera Peña MD - 12/15/2021 6:45 PM CDT I, Herrera Peña, was not directly involved in the care of this patient and am signing thisnote only for administrative purposes. * Los Madsen RN - 12/08/2021 3:45 AM CDT Patient arrives ambulatory to triage. She reports she woke up and had an episode of emesis. She reports that while bringing her son to the ED, she had another episode. She has also been nauseated andhas had occasional headaches. documented in this encounter Plan of Treatment Not on file documented as of this encounter Procedures Procedure Name Priority Date/Time Associated Diagnosis Comments BASIC METABOLIC PANEL STAT 12/08/2021 5:43 AM CDT HEPATIC FUNCTION PANEL STAT 12/08/2021 5:43 AM CDT HCG QUANT (SERUM)-CHORIONIC GONADOTROPIN STAT 12/08/2021 5:43 AM CDT CBC W/DIFF AUTOMATED STAT 12/08/2021 5:43 AM CDT LIPASE STAT 12/08/2021 5:43 AM CDT RESPIRATORY PCR PANEL 2 Nurse Collected Priority 12/08/2021 4:11 AM CDT documented in this encounter Results * HCG QUANT (SERUM)-CHORIONIC GONADOTROPIN (12/08/2021 5:43 AM CDT) [facility] HCG QUANTITATIVE <1 MIU/ML 12/09/19 6:22 AM CDT [facility] Comment: <5 IS NEGATIVE 5-25 IS BORDERLINE >25 IS POSITIVE ASSAY PERFORMED BY CHEMILUMINESCENCE METHODOLOGY USING [employer]. PATIENT RESULTS DETERMINED BY ASSAYS USING DIFFERENT MANUFACTURERS FOR METHODS MAY NOT BE COMPARABLE. 12/08/2021 5:43 AM CDT us Alcira Savage MENTAL HEALTH ASSISTANT LABORATORY Final Resul t [facility] [address] [place] [address], [place] [phone] * HEPATIC FUNCTION PANEL (12/08/2021 5:43 AM CDT) [facility] BILIRUBIN TOTAL S/P/B 0.3 0.2 - 1.0 MG/DL 12/08/2021 6:22 AM CDT [facility] BILIRUBIN DIRECT S/P/B <0.1 0.0 - 0.2 MG/DL 12/08/2021 6:22 AM CDT [facility] ALKALINE PHOSPHATASE S/P/B 62 37 - 98 U/L 12/08/2021 6:22 AM CDT [facility] AST 20 15 - 37 U/L 12/08/2021 6:22 AM CDT [facility] ALT 19 13 - 56 U/L 12/08/2021 6:22 AM CDT [facility] TOTAL PROTEIN S/P/B 7.8 6.4 - 8.2 G/DL 12/08/2021 6:22 AM CDT [facility] ALBUMIN S/P/B 3.5 3.4 - 5.0 G/DL 12/08/2021 6:22 AM CDT [facility] 12/08/2021 5:43 AM CDT us Alcira Savage NP LABORATORY Final Resul t Performing Organization Address City/[facility]/ZIP Co de Phone Number [facility] [address] [place] [address], [place] [phone] * LIPASE (12/08/2021 5:43 AM CDT) LIPASE 109 73 - 393 UNITS/L 12/08/2021 6:22 AM CDT [facility] 12/08/2021 5:43 AM CDT Alcira Savage NP LABORATORY Final Resul t Performing Organization Address [facility] de Phone Number [facility] [address] [place] [address], [place] [phone] * (ABNORMAL) BASIC METABOLIC PANEL (12/08/2021 5:43 AM CDT) SODIUM S/P/B 142 136 - 145 MMOL/L 12/08/2021 6:22 AM CDT [facility] POTASSIUM S/P/B 3.8 3.5 - 5.1 MMOL/L 12/08/2021 6:22 AM CDT [facility] CHLORIDE S/P/B 108(H) 98 - 107 MMOL/L 12/08/2021 6:22 AM CDT [facility] CO2 27.2 21.0 - 32.0 MMOL/L 12/08/2021 6:22 AM CDT [facility] GLUCOSE 99 74 - 106 MG/DL 12/08/2021 6:22 AM CDT [facility] BUN 12 7 - 18 MG/DL 12/08/2021 6:22 AM CDT [facility] CREATININE S/P/B 1.06(H) 0.55 - 1.02 MG/DL 12/08/2021 6:22 AM CDT [facility] CALCIUM S/P/B 9.1 8.5 - 10.1 MG/DL 12/08/2021 6:22 AM CDT [facility] ANION GAP 6.8 5.0 - 15.0 MMOL/L 12/08/2021 6:22 AM CDT [facility] OSMOLALITY (CALC) 294 MOSM/KG 022 6:22 AM CDT [facility] Comment:REFERENCE RANGE NOT ESTABLISHED GFR ESTIMATE 73(L) >90 ML/MIN/1. 73 M2 12/08/2021 6:22 AM CDT [facility] GFR NOTES GFR REFERENCE S: 12/08/2021 6:22 AM CDT [facility] Comment: THE ESTIMATED GFR IS CALCULATED USING THE 2020 CKD-EPI EQUATION. THE FOLLOWING CATEGORIES FOR GRADING RENAL FUNCTION ARE RECOMMENDED BY THE INTERNATIONAL SOCIETY OF NEPHROLOGY (KDIGO 2012 CLINICAL PRACTICE GUIDELINE). G1,NORMAL OR HIGH: >89 ml/min/1.73 m2 G2,MILDLY DECREASED: 60-89 ml/min/1.73 m2 G3A,MILDLY TO MODERATELY DECREASED: 45-59 ml/min/1.73 m2 G3B,MODERATELY TO SEVERELY DECREASED: 30-44 ml/min/1.73 m2 G4,SEVERELY DECREASED: 15-29 ml/min/1.73 m2 G5,KIDNEY FAILURE: <15 ml/min/1.73 m2 12/08/2021 5:43 AM CDT us Alcira Savage NP LABORATORY Final Resul t [facility] [address] [place] [address], [phone] * (ABNORMAL) CBC W/DIFF AUTOMATED (12/08/2021 5:43 AM CDT) WBC 5.4 4.0 - 10.8 x10'3/uL 12/08/2021 5:54 AM CDT [facility] RBC 4.22 4.10 - 5.40 x10'6/uL 12/08/2021 5:54 AM CDT [facility] HGB 12.6 12.0 - 16.0 G/DL 12/08/2021 5:54 AM CDT [facility] HCT 38.4 36.0 - 47.0 % 12/08/2021 5:54 AM CDT [facility] MCV 91.0 78.0 - 100.0 FL 12/08/2021 5:54 AM CDT [facility] MCH 29.9 27.0 - 31.0 PG 12/08/2021 5:54 AM CDT [facility] MCHC 32.8(L) 33.0 - 36.0 G/DL 12/08/2021 5:54 AM CDT [facility] RDW 12.2 11.5 - 14.5 % 12/08/2021 5:54 AM CDT [facility] PLT 289 150 - 350 x10'3/uL 12/08/2021 5:54 AM CDT [facility] MPV 8.7 7.4 - 10.4 FL 12/08/2021 5:54 AM CDT [facility] ABS. NEUTROPHILS 3.16 1.60 - 8.30 x10'3/uL 12/08/2021 5:54 AM CDT [facility] ABS. LYMPHOCYTES 1.54 0.80 - 4.70 x10'3/uL 12/08/2021 5:54 AM CDT [facility] ABS. MONOCYTES 0.60 0.00 - 1.50 x10'3/uL 12/08/2021 5:54 AM CDT [facility] ABS. EOSINOPHILS 0.08 0.00 - 0.40 x10'3/uL 12/08/2021 5:54 AM CDT [facility] ABS. BASOPHILS 0.02 0.00 - 0.20 x10'3/uL 12/08/2021 5:54 AM CDT [facility] ABS. IMMATURE GRANULOCYTES 0.02 0.00 - 0.03 x10'3/uL 12/08/2021 5:54 AM CDT [facility] ABS. NUCLEATED RBC'S 0.00 0.0 x10'3/uL 12/08/2021 5:54 AM CDT [facility] 12/08/2021 5:43 AM CDT Alcira Savage MENTAL HEALTH ASSISTANT LABORATORY Final Resul t [facility] [address] [place] [address], [phone] * BIOFIRE PCR UPPER RESPIRATORY PROFILE (RESPIRATORY PCR PANEL 2) (12/08/2021 4:11 AM CDT) ADENOVIRUS PCR (RESP) NOT DETECTED NOT DETECTED 12/08/2021 5:18 AM CDT [facility] CORONAVIRUS 229E PCR (RESP) NOT DETECTED NOT DETECTED 12/08/2021 5:18 AM CDT [facility] CORONAVIRUS HKU1 PCR (RESP) NOT DETECTED NOT DETECTED 12/08/2021 5:18 AM CDT [facility] CORONAVIRUS NL63 PCR (RESP) NOT DETECTED NOT DETECTED 12/08/2021 5:18 AM CDT [facility] CORONAVIRUS OC43 PCR (RESP) NOT DETECTED NOT DETECTED 12/08/2021 5:18 AM CDT [facility] METAPNEUMOVIRUS PCR (RESP) NOT DETECTED NOT DETECTED 12/08/2021 5:18 AM CDT [facility] RHINOVIRUS/ENTEROV IRUS PCR (RESP) NOT DETECTED NOT DETECTED 12/08/2021 5:18 AM CDT [facility] INFLUENZA A PCR (RESP) NOT DETECTED NOT DETECTED 12/08/2021 5:18 AM CDT [facility] INFLUENZA B PCR (RESP) NOT DETECTED NOT DETECTED 12/08/2021 5:18 AM CDT [facility] PARAINFLUENZA 1 PCR (RESP) NOT DETECTED NOT DETECTED 12/08/2021 5:18 AM CDT [facility] PARAINFLUENZA 2 PCR (RESP) NOT DETECTED NOT DETECTED 12/08/2021 5:18 AM CDT [facility] PARAINFLUENZA 3 PCR (RESP) NOT DETECTED NOT DETECTED 12/08/2021 5:18 AM CDT [facility] PARAINFLUENZA 4 PCR (RESP) NOT DETECTED NOT DETECTED 12/08/2021 5:18 AM CDT [facility] RSV PCR (RESP) NOT DETECTED NOT DETECTED 12/08/2021 5:18 AM CDT [facility] B PARAPERTUSIS PCR (RESP) NOT DETECTED NOT DETECTED 12/08/2021 5:18 AM CDT [facility] BORDETELLA PERTUSSIS PCR (RESP) NOT DETECTED NOT DETECTED 12/08/2021 5:18 AM CDT [facility] CHLAMYDOPHILA PNEUMONIAE PCR (RESP) NOT DETECTED NOT DETECTED 12/08/2021 5:18 AM CDT [facility] MYCOPLASMA PNEUMONIAE PCR (RESP) NOT DETECTED NOT DETECTED 12/08/2021 5:18 AM CDT [facility] CORONAVIRUS SARS COV 2 PCR (RESP) NOT DETECTED NOT DETECTED 12/08/2021 5:18 AM CDT [facility] FIRST TEST NO 12/08/2021 4:11 AM CDT [facility] EMPLOYED IN HEALTHCARE NO 12/08/2021 4:11 AM CDT [facility] SYMPTOMATIC DEFINED BY CDC YES 12/08/2021 4:11 AM CDT [facility] DATE OF SYMPTOM ONSET 2021120712/08/2021 4:11 AM CDT [facility] HOSPITALIZATION STATUS NO 12/08/2021 4:11 AM CDT [facility] PATIENT IN ICU UNKNOWN 12/08/2021 4:23 AM CDT [facility] 12/08/2021 4:11 AM CDT [facility] NOT 12/08/2021 4:11 AM CDT [facility] NASOPHARYNGEAL SWAB / Unknown 12/08/2021 4:11 AM CDT us Alcira Savage NP MICROBIOLOGY - GENERAL VANDANA VALDEZ Final Result [facility] [address] [place] [address], [place] [phone] documented in this encounter Visit Diagnoses Diagnosis Viral gastroenteritis- Primary Intestinal infection due to other organism, not elsewhere classified documented in this encounter Administered Medications Inactive Administered Medications - up to 3 most recent administrations Medication Order MAR Action Action Date Dose Rate Site famotidine (PF) (PEPCID) injection 20 mg 20 mg, Intravenous, Once, 1 dose, On Wed12/08/21 at 0545, IV Push over 2 minutes Given 12/08/2021 5:46 AM CDT 20 mg metoclopramide (REGLAN) injection 10 mg 10 mg, Intravenous, Once, 1 dose, On Wed12/08/21 at 0545, Administer IV over 1-2 minutes Given 12/08/2021 5:44 AM CDT 10 mg normal saline 0.9 % flush 3-10 mL 3-10 mL, Intravenous, Every 8 hours, First dose on Wed12/08/21 at 0545, Until Discontinued Given 12/08/2021 5:46 AM CDT 10 mLs normal saline 0.9 % flush 3-10 mL 3-10 mL, Intravenous, As needed, Line care, Starting on Wed12/08/21 at 0534, Until Wed12/08/21 at 0839 ondansetron (ZOFRAN-ODT) disintegrating tablet 4 mg 4 mg, Oral, Once, 1 dose, On Wed12/08/21 at 0415 Given 12/08/2021 4:14 AM CDT 4 mg sodium chloride 0.9% bolus infusion 1,000 mL 1,000 mL, Intravenous, Administer over 60 Minutes, Once, 1 dose, On Wed12/08/21 at 0545 New Bag 12/08/2021 5:44 AM CDT 1,000 mLs documented in this encounter Active and Recently Administered Medications Times are shown in CDT. Scheduled Medication Order 12/06/2021 12/07/2021 12/08/2021 famotidine (PF) (PEPCID) injection 20 mg (COMPLETED) 20 mg, Intravenous, Once, 1 dose, On Wed12/08/21 at 0545, IV Push over 2 minutes 0546 (Given - Provid er: Sophia Domingo RN) metoclopramide (REGLAN) injection 10 mg (COMPLETED) 10 mg, Intravenous, Once, 1 dose, On Wed12/08/21 at 0545, Administer IV over 1-2 minutes 0544 (Given - Provid er: Sophia Domingo RN) normal saline 0.9 % flush 3-10 mL 3-10 mL, Intravenous, Every 8 hours, First dose on Wed12/08/21 at 0545, Until Discontinued 0546 (Given - Provid er: Sophia Domingo RN) ondansetron (ZOFRAN-ODT) disintegrating tablet 4 mg (COMPLETED) 4 mg, Oral, Once, 1 dose, On Wed12/08/21 at 0415 0414 (Given - Provid er: Sophia Domingo RN) sodium chloride 0.9% bolus infusion 1,000 mL (COMPLETED) 1,000 mL, Intravenous, Administer over 60 Minutes, Once, 1 dose, On Wed12/08/21 at 0545 0544 (New Bag - Prov ider: Sophia Domingo RN)0631 (Infusion Stop Time - Provider: Sophia Domingo RN) PRN Medication Order 12/06/2021 12/07/2021 12/08/2021 normal saline 0.9 % flush 3-10 mL 3-10 mL, Intravenous, As needed, Line care, Starting on Wed12/08/21 at 0534, Until Wed12/08/21 at 0839 documented in this encounter Additional Health Concerns Infection Onset Date Last Indicated Resolved Time COVID-19 Rule Out 12/08/2021 12/08/2021 12/08/2021 5:18 AM CDT documented as of this encounter Care Teams Accounting Methods Analyst Relationship Specialty Start Date End Date None, Provider, PCP - General 09/02/21 documented as of this encounter
--- OUTSIDE RECORDS SUMMARY | 2024-02-26 23:12 | XMS_ITS | Encounter Summary ---
Author Organization [facility] Address [facility] [place] [address] [place] [address] Care Team Providers Care Medicaid Billing Specialist Name Role Phone None, Provider Primary Care Provider Merced vincent Encounter Details Date Type Department Care Team (Latest Contact Info) Description 10/22/2021 Travel Social History Tobacco Use Types Packs/Day [...] on filedocumented in this encounter Care Teams Medicaid Billing Specialist Relationship Specialty Start Date End Date None, Provider, PCP - General 09/02/21 documented as of this encounter
--- OUTSIDE RECORDS SUMMARY | 2024-02-26 23:12 | XMS_ITS | Encounter Summary ---
Author Organization [facility] Address [facility] [place] [address] [place] [address] Care Team Providers Care International Marketing Coordinator Name Role Phone None, Provider Primary Care Provider Merced vincent Encounter Details Date Type Department Care Team (Latest Contact Info) Description 12/08/2021 Travel Social History Tobacco Use Types Packs/Day [...] documented as of this encounter Care Teams International Marketing Coordinator Relationship Specialty Start Date End Date None, Provider, PCP - General 09/02/21 documented as of this encounter
--- OUTSIDE RECORDS SUMMARY | 2024-02-26 23:12 | XMS_ITS | Encounter Summary ---
Author Organization [facility] Healthcare Address [address] [place] [id number] Care Team Providers Care Track Laborer Name Role Phone No, Physician Primary Care Provider [phone] Reason for Visit * Reason Comments Arm Pain Boil under left arm Encounter Details Date Type Department Care Team (Late st Contact Info) Description 04/30/2023 6:39 PM CELL BIOLOGY SCIENTIST - 04/30/2023 8:08 PM CELL BIOLOGY SCIENTIST Emergency [facility] Emergency Department [address] [place], [place] [id number] Discharge Disposition: Left without being seen Social History Tobacco Use Types Packs/Day Years [...] on file Legal Sex Female 10:07 AM CELL BIOLOGY SCIENTIST Gender Identity Not on file Sexual Orientation Not on file documented as of this encounter Last Filed Vital Signs Vital Sign Reading Time Taken Comments Blood Pressure 125/96 04/30/2023 11:01 AM CELL BIOLOGY SCIENTIST Pulse 74 04/30/2023 11:01 AM CELL BIOLOGY SCIENTIST Temperature 36.4 ??C (97.5 ??F) 04/30/2023 11:[address] Respiratory Rate 16 04/30/2023 11:01 AM CELL BIOLOGY SCIENTIST Oxygen Saturation 100% 04/30/2023 11:01 AM CELL BIOLOGY SCIENTIST Inhaled Oxygen Concentration - - Weight 83 kg (183 lb) 04/30/2023 11:01 AM CELL BIOLOGY SCIENTIST Height 157.5 cm (5' 2 ) 04/30/2023 11:01 AM CELL BIOLOGY SCIENTIST Body Mass Index 33.47 04/30/2023 11:01 AM CELL BIOLOGY SCIENTIST documented in this encounter Medications at Time [...] tablet 4 documented as of this encounter Discharge Disposition Disposition Code Departure Means Destination Comment s Left without being seen documented in this encounter Plan of Treatment Not on file documented as of this encounter Visit Diagnoses Not on filedocumented in this encounter Care Teams Track Laborer Relationship Specialty Start Date End Date No, Physician PCP - General 04/29/23 documented as of this encounter
--- OUTSIDE RECORDS SUMMARY | 2024-02-26 23:12 | XMS_ITS | Encounter Summary ---
Author Organization [facility] Facility Care Team Providers Care Company Driver Name Role Phone Unavailable Primary Care Provider Unavailabl e Encounter Details Date Type Department Care Team (Late st Contact Info) Description 08/18/2014 10:33 AM CDT - 08/18/2014 4:15 PM CDT Hospital Encounter [facility] Jessica Moraes, GEE [address] [place] [address] Esophageal reflux; Abdominal pain, epigastric; Nausea without vomiting; Metrorrhagia; Family history of other cardiovascular diseases Social History Tobacco Use Types Packs/Day Years Used Date Smoking Tobacco: Never Assessed Comments Unknown Sex and Gender Information Value Date Recorded Sex Assigned at Not on file Legal Sex Female 10:07 AM NURSE EXAMINER Gender Identity Not on file Sexual Orientation Not on file documented as of this encounter Plan of Treatment Not on file documented as of this encounter Procedures Procedure Name Priority Date/Time Associated Diagnosis Comments PLASMA COMPREHENSIVE METABOLIC PANEL Routine 08/18/2014 2:13 PM CDT BLOOD CELL COUNT (CBC) Routine 5 2:13 PM CDT BLOOD HUMAN IMMUNODEFICIENCY VIRUS Routine 08/18/2014 2:12 PM CDT URINE CHORIONIC GONADOTROPIN (HCG) Routine 08/18/2014 2:07 PM CDT URINALYSIS Routine 08/18/2014 2:01 PM CDT DISCHARGE LABORATORY CUMULATIVE REPORT 08/18/2014 documented in this encounter Results * Plasma comprehensive metabolic panel (08/18/2014 2:13 PM CDT) Sodium 141 135 - 145 mmol/L HISTORICAL RESULTS K, pl 4.0 3.3 - 4.9 mmol/L HISTORICAL RESULTS Chloride 103 97 - 110 mmol/L HISTORICAL RESULTS CO2 27 22 - 32 mmol/L HISTORICAL RESULTS A. gap 11 0 - 16 mmol/L HISTORICAL RESULTS Glucose 76 70 - 199 mg/dl HISTORICAL RESULTS BUN 9 8 - 25 mg/dl HISTORICAL RESULTS Creatinine 0.75 0.60 - 1.10 mg/dl HISTORICAL RESULTS Calcium 9.4 8.6 - 10.3 mg/dl HISTORICAL RESULTS Protein, pl 7.9 6.5 - 8.5 g/dl HISTORICAL RESULTS Alb 4.1 3.6 - 5.0 g/dl HISTORICAL RESULTS Bilirubin 0.3 0.3 - 1.1 mg/dl HISTORICAL RESULTS Alk phos 53 38 - 126 Units/L HISTORICAL RESULTS AST 26 11 - 47 Units/L HISTORICAL RESULTS ALT 16 7 - 53 Units/L HISTORICAL RESULTS Plasma 08/18/2014 2:13 PM CDT Jessica Li RADIO COMMUNICATIONS MECHANICIAN LAB BLOOD ORDERABLES Final Result HISTORICAL RESULTS * Blood cell count (CBC) (08/18/2014 2:13 PM CDT) WBC 4.0 3.8 - 9.8 K/cumm HISTORICAL RESULTS MCV 90.2 80.0 - 97.6 fl HISTORICAL RESULTS RBC 4.16 3.90 - 5.00 M/cumm HISTORICAL RESULTS MCH 30.4 26.7 - 33.7 pg HISTORICAL RESULTS Hgb 12.6 12.1 - 15.1 g/dl HISTORICAL RESULTS MCHC 33.7 32.7 - 35.5 g/dl HISTORICAL RESULTS Hct 37.5 36.1 - 44.3 % HISTORICAL RESULTS Rdw 12.9 11.8 - 14.6 % HISTORICAL RESULTS Platelets 319 140 - 440 K/cumm HISTORICAL RESULTS MPV 7.2 6.8 - 10.4 fl HISTORICAL RESULTS Neutrophils, abs 1.8 1.8 - 6.6 K/cumm HISTORICAL RESULTS Lymphocytes, abs 1.6 1.2 - 3.3 K/cumm HISTORICAL RESULTS Monocytes, absolute 0.5 0.2 - 1.2 K/cumm HISTORICAL RESULTS Eosinophils, abs 0.1 0.0 - 0.5 K/cumm HISTORICAL RESULTS Basophils, abs 0.0 0.0 - 0.2 K/cumm HISTORICAL RESULTS Neutrophils 46.0 38.7 - 74.5 % HISTORICAL RESULTS Lymphocytes 38.6 20.0 - 54.3 % HISTORICAL RESULTS Monos 11.6 4.3 - 13.5 % HISTORICAL RESULTS Eosinophils 3.1 0.0 - 6.0 % HISTORICAL RESULTS Basophils 0.7 0.0 - 3.0 % HISTORICAL RESULTS Blood specimen (specimen) 08/18/2014 2:13 PM CDT Jessica Li NP LAB BLOOD ORDERABLES Final Result Performing Organization Address [facility] Co de Phone Number HISTORICAL RESULTS * Blood Human Immunodeficiency virus [HIV] rapid screen (08/18/2014 2:12 PM CDT) HIV ab Negative Negative HISTORICAL RESULTS Blood specimen (specimen) 08/18/2014 2:12 PM CDT Pernell Tamez MD LAB BLOOD ORDERABLES Final Res ult Performing Organization Address [facility] Co de Phone Number HISTORICAL RESULTS * Urine chorionic gonadotropin (HCG) (08/18/2014 2:07 PM CDT) HCG, ur Negative HISTORICAL RESULTS Urine 08/18/2014 2:07 PM CDT Pernell Tamez MD LAB BLOOD ORDERABLES Final Res ult Performing Organization Address [facility] Co de Phone Number HISTORICAL RESULTS * Urinalysis (08/18/2014 2:01 PM CDT) Color, ur Yellow Yellow HISTORICAL RESULTS Clarity, ur Clear Clear HISTORIC AL RESULTS Specific gravity, ur 1.021 1.003 - 1.030 HISTORICAL RESULTS pH, ur 6.0 5.0 - 8.0 HISTORICAL RESULTS Protein, ur Negative Trace HISTORIC AL RESULTS Glucose, ur Negative Negative HISTORIC AL RESULTS Ketones, ur Negative Negative HISTORIC AL RESULTS Bilirubin, ur Negative Negative HISTOR ICAL RESULTS U Blood Negative Negative HISTORICAL RESULTS Urobilinogen, quant, ur <2.0 0.0 - 2.0 mg/dl HISTORICAL RESULTS Nitrites, ur Negative Negative HISTORI TALIA RESULTS Leukocyte esterase, ur Negative Negative HISTORICAL RESULTS Urine 08/18/2014 2:01 PM CDT us Pernell Tamez MD LAB BLOOD ORDERABLES Final Res ult HISTORICAL RESULTS * DISCHARGE LABORATORY CUMULATIVE REPORT (08/18/2014) Narrative 08/18/2014 Ordered by an unspecified provider. us Historical Provider LAB BLOOD ORDERABLES Ita l Result documented in this encounter Visit Diagnoses Diagnosis Esophageal reflux Abdominal pain, epigastric Nausea without vomiting Metrorrhagia Family history of other cardiovascular diseases documented in this encounter
--- OUTSIDE RECORDS SUMMARY | 2024-02-26 23:12 | XMS_ITS | Encounter Summary ---
Author Organization [facility] Address [facility] [place] [address] [place] [address] Care Team Providers Care Cabinet Mounter Name Role Phone None, Provider Primary Care Provider Merced vincent Encounter Details Date Type Department Care Team (Latest Contact Info) Description 09/02/2021 Travel Social History Tobacco Use Types Packs/Day Years Used Date Smoking Tobacco: Never Assessed Comments No Sex and Gender Information Value Date Recorded Sex Assigned at Not on file Legal Sex Female 7:59 AM CDT Gender Identity Not on file Sexual Orientation Not on file COVID-19 Exposure Response Date Recorded In the last 10 days, have yo u been in contact with someone who was confirmed or suspected to have Coronavirus/COVID-19? No / Unsure 09/02/2021 8:51 AM CDT documented as of this encounter Plan of Treatment Not on file documented as of this encounter Visit Diagnoses Not on filedocumented in this encounter Care Teams Cabinet Mounter Relationship Specialty Start Date End Date None, Provider, PCP - General 09/02/21 documented as of this encounter
--- OUTSIDE RECORDS SUMMARY | 2024-02-26 23:12 | XMS_ITS | Clinical Summary ---
Author Organization [facility] Address [address] [place] [address] Care Team Providers Care Engine Turner Name Role Phone No, Physician Primary Care Provider [phone] Allergies No known active allergies Medications doxycycline (VIBRAMYCIN) 100 mg capsuleIndication s:Hidradenitis suppurativa of left axilla,Acute axillary lymphadenitis Take 1 tablet/capsule (100 mg total) by mouth 2 (two) times a day Two p.o. in the 1st dose then 1 p.o. b.i.d. thereafter for 10 days. Collaborating physician Rao Mario MD 20 capsule 04/29/19 24 Active clindamycin (CLEOCIN T) 1 % lotion Apply topically 2 (two) times a day Apply twice daily as directed to left arm pit. Note to pharmacist: May substitute with gentamicin 0.1% cream or mupirocin ointment b.i.d., Disp. 30 gm. Collaborating physician Rao Mario MD 60 mL 1 04/29/19 24 Active naproxen (NAPROSYN) 500 mg tabletIndications :Hidradenitis suppurativa of left axilla,Acute axillary lymphadenitis Take 1 tablet (500 mg total) by mouth 2 (two) times a day with meals Take as directed to reduce pain and swelling. Collaborating physician Rao Mario MD 30 tablet 04/29/19 24 Active acetaminophen-cod eine (TYLENOL #2) 300-15 mg per tabletIndications :Hidradenitis suppurativa of left axilla,Acute axillary lymphadenitis Take 1 tablet by mouth every 4 (four) hours as needed (P.r.n. pain not relieved by naproxen alone. Take with food.) Collaborating physician Rao Mario MD 10 tablet 04/29/19 24 Active Active Problems Problem Noted Date Diagnosed Date Hidradenitis suppurativa of left axilla 04/29/19 24 Acute axillary lymphadenitis 04/29/2023 Social History Tobacco Use Types Packs/Day Years [...] on file Legal Sex Female 10:07 AM CONTACT OFFICER Gender Identity Not on file Sexual Orientation Not on file Obstetrics History Last Filed Vital Signs Vital Sign Reading Time Taken Comments Blood Pressure 125/96 04/30/2023 11:01 AM CONTACT OFFICER Pulse 74 04/30/2023 11:01 AM CONTACT OFFICER Temperature 36.4 ??C (97.5 ??F) 04/30/2023 11:[address] Respiratory Rate 16 04/30/2023 11:01 AM CONTACT OFFICER Oxygen Saturation 100% 04/30/2023 11:01 AM CONTACT OFFICER Inhaled Oxygen Concentration - - Weight 83 kg (183 lb) 04/30/2023 11:01 AM CONTACT OFFICER Height 157.5 cm (5' 2 ) 04/30/2023 11:01 AM CONTACT OFFICER Body Mass Index 33.47 04/30/2023 11:01 AM CONTACT OFFICER Plan of Treatment Health Maintenance Due Date Last Done Comments Cervical Cancer Screening 1992 Depression Screening 1992 Hepatitis C Screening 1992 DTaP/Tdap/Td Vaccine (1 - Tdap) 09/13/2003 Varicella Vaccines (1 of 2 - 13+ 2-dose series) 2005 Hepatitis B Screening 2010 Regular Well Visit/Exam 18-64 2010 Influenza Vaccine (#1) 2023 HPV Vaccines Aged Out No longer eligi ble based on patient's age to complete this topic Pneumococcal vaccine <65 Aged Out No longer eligible based on patient's age to complete this topic Insurance [facility] Care Teams Engine Turner Relationship Specialty Start Date End Date No, Physician PCP - General 04/29/23
--- OUTSIDE RECORDS SUMMARY | 2024-02-26 23:12 | XMS_ITS | Encounter Summary ---
Author Organization [facility] Address [address] [facility] [place] [address] [place] [address] Care Team Providers Care Vice President Talent Management Name Role Phone None, Provider Primary Care Provider Unavaila ble Reason for Referral * (Routine) - Closed Specialty Diagnoses / Procedures Referred By Contac t Referred To Contact Procedures INCISION AND DRAINAGE Lauri Brennan NP [address] [address] Phone: tel: fax: Referral ID Status Reason Start Date Expiration Date Visits Re quested Visits Authorized [id number] Closed 09/02/2021 10/03/2022 1 1 Reason for Visit * Reason Comments Abscess Encounter Details Date Type Department Care Team (Late st Contact Info) Description 09/02/2021 8:04 AM CDT - 09/02/2021 9:15 AM CDT Emergency [facility] Emergency [address] [place] [address] Lauri Brennan NP [address] [address] Abscess Discharge Disposition: Home or Self Care [...] Sign Reading Time Taken Comments Blood Pressure 129/76 09/02/2021 8:01 AM CDT Pulse 77 09/02/2021 8:01 AM CDT Temperature 36.8 ??C (98.3 ??F) 09/02/2021 8:01 AM CD T Respiratory Rate 14 09/02/2021 8:01 AM CDT Oxygen Saturation 100% 09/02/2021 8:01 AM CDT Inhaled Oxygen Concentration - - Weight 93.3 kg (205 lb 11 oz) 09/02/2021 8:01 AM CDT Height 157.5 cm (5' 2 ) 09/02/2021 8:01 AM CDT Body Mass Index 37.62 09/02/2021 8:01 AM CDT documented in this encounter Discharge Instructions * Discharge Instructions* Lauri Brennan NP - 09/02/2021 8:54 AM CDT Please read and follow additional written instructions provided. If prescribed medications, please fill them and take as directed. Consume at least two liters of fluid daily - preferably water. Take antibiotics as directed, take all the antibiotic even if feeling better. Apply the topical bacitracin daily as needed. He may use the Hibiclens wash daily for prevention. Unless otherwise unableto (such as allergic to or instructed not to use), you may take Tylenol 1000 mg every 6 hours and ibuprofen 600 mg every 6 hours as needed for pain/fever. Follow up with your doctor or doctor referral, call next business day to schedule an appointment for ED follow up in 7-10 days. Follow up with your doctor in 3 days if no improvement. Contact your doctor or return to ER if any new concerning symptoms. Thank you for choosing [facility] to serve you today. As discussed, it is important that you followup with your health care provider for examination as well as possible further testing and therapy. documented in this encounter Medications at Time of Discharge chlorhexidine 4 % Liquid Apply topically daily as needed. 118 mL 09/02/2021 sulfamethoxazole -trimethoprim (BACTRIM DS) 800-160 MG tablet Take 1 tablet by mouth 2 (two) times daily for 7 days. 14 tablet 09/02/2021 2 documented as of this encounter ED Notes * Lauri Brennan NP - 09/02/2021 8:07 AM CDTAssociated Order(s): Incision/Drainage Images from the original note were not included. Chief Complaint Chief Complaint Patient presents with ??? Abscess History of Present Illness Patient is a 30-year-old female with a history of hidradenitis suppurativa that presents to the ED with complaints of lesion to the left axilla area. She indicates that it has been worsening for the past 3 days. She indicates that she has had to have surgery on the right axilla area, she has went approximately 2 years without having a reoccurring lesion. Aggravating factors are touch, relieving factors are none, she has tried warm compresses with minimal success. She indicates she does not havea primary care physician at this time. The patient denies at this time. Medical History ALLERGIES: No Known Allergies MEDICATIONS: Prior to Admission medications Medication Sig Start Date End Date Taking? Authorizing Provider chlorhexidine 4 % Liquid Apply topically daily as needed. 09/02/21 Yes Lauri Brennan NP sulfamethoxazole-trimethoprim (BACTRIM DS) 800-160 MG tablet Take 1 tablet by mouth 2 (two) times daily for 7 days. 09/02/21 09/09/21 Yes Lauri Brennan NP PAST MEDICAL HISTORY: No past medical history on file. PAST SURGICAL HISTORY: No past surgical history on file. FAMILY HISTORY: No family history on file. SOCIAL HISTORY: Review of Systems Review of Systems Constitutional: Negative. HENT: Negative. Eyes: Negative. Respiratory: Negative. Cardiovascular: Negative. Gastrointestinal: Negative. Genitourinary: Negative. Musculoskeletal: Negative. Skin: Left lesion of the axilla area. Neurological: Negative. Psychiatric/Behavioral: Negative. Physical Exam Filed Vitals: 09/02/21 0801 BP: 129/76 Pulse: 77 Resp: 14 Temp: 98.3 ??F (36.8 ??C) TempSrc: Oral SpO2: 100% Weight: 93.3 kg (205 lb 11 oz) Height: 5' 2 (1.575 m) Physical Exam Vitals reviewed. Constitutional: General: She is not in acute distress. Appearance: Normal appearance. She is not ill-appearing, toxic-appearing or diaphoretic. HENT: Head: Normocephalic. Nose: Nose normal. Eyes: General: Right eye: No discharge. Left eye: No discharge. Pupils: Pupils are equal, round, and reactive to light. Cardiovascular: Rate and Rhythm: Normal rate and regular rhythm. Pulses: Normal pulses. Heart sounds: Normal heart sounds. Pulmonary: Effort: Pulmonary effort is normal. Breath sounds: Normal breath sounds. Musculoskeletal: General: Normal range of motion. Cervical back: Normal range of motion. Skin: General: Skin is warm. Capillary Refill: Capillary refill takes less than 2 seconds. Findings: Lesion present. Comments: There is a single lesions in the left axilla area, approximately 2 mm. There is mild erythema, warmth, and induration surrounding the lesion, approximately 0.5 cm. No active drainage on inspection. See pic below. Neurological: Mental Status: She is alert and oriented to person, place, and time. Psychiatric: Mood and Affect: Mood normal. Behavior: Behavior normal. Diagnostic Studies / Procedures ELECTROCARDIOGRAMS: No results found for this visit on 09/02/21. LABORATORY STUDIES: No results found for this visit on 09/02/21. IMAGING STUDIES No orders to display Incision/Drainage Date/Time: 09/02/2021 8:49 AM Performed by: Lauri Brennan NP Authorized by: Lauri Brennan NP Consent: Consent obtained: Verbal Consent given by: Patient Risks, benefits, and alternatives were discussed: yes Risks discussed: Incomplete drainage, pain, bleeding and infection Alternatives discussed: No treatment, delayed treatment and alternative treatment [place] protocol: Test results available : no Imaging studies available: no Patient identity confirmed: Verbally with patient and arm band Location: Type: Abscess Size: 1 cm Location: Upper extremity Upper extremity location: Arm Arm location: L upper arm (Axilla area) Pre-procedure details: Skin preparation: Antiseptic wash Sedation: Sedation type: None Anesthesia: Anesthesia method: Local infiltration Local anesthetic: Lidocaine 1% WITH epi Procedure type: Complexity: Simple Procedure details: Ultrasound guidance: no Needle aspiration: no Incision types: Single straight Wound management: Probed and deloculated Drainage: Bloody and purulent Drainage amount: Moderate Wound treatment: Wound left open Packing materials: None (Bacitracin topically) Post-procedure details: Procedure completion: Tolerated well, no immediate complications ED Course / Medical Decision Making VS are unremarkable. The patient is non toxic appearing. Differential diagnoses were considered anddiscussed with the patient, the patient's history, physical exam, and ancillary studies were taken into consideration for the patient's treatement. After reviewing the information and discussing the potential outcomes/risks/benefits, the patient's disposition was agreed upon. Portions of this note have been documented using software voice technology. Please excuse any typos. Unless otherwise documented, patient was not directly assessed/treated by Attending Physician. Attending Physician available for consult as needed, Dr. Tirado. ED Course as of 09/02/21 1108 WedSep 02, 2021 0851 I discussed the patient that I will prescribe her Bactrim to be takeb twice daily for the next7 days as well as bacitracin topically daily. Instructed the patient to wash the area with warm water and antibacterial soap, keep the area clean and dry, monitor for signs of infection. I will also prescribe the patient Hibiclens wash to be used for preventative purposes going forward. We discussed return precautions in detail. Patient verbalized understanding agreement plan of care [JE] ED Course User Index [JE] Lauri Brennan NP Clinical Impression Hidradenitis suppurativa of left axilla (Primary) Disposition: Discharge Lauri Brennan NP 09/02/21 1108 Cosigned by Chato Tirado MD at 09/02/2021 12:48 PM CDT * Jessica Borden RN - 09/02/2021 8:01 AM CDT PT ARRIVES TO TRIAGE WITH C/O ABSCESS TO L AXILLA. documented in this encounter Plan of Treatment Not on file documented as of this encounter Procedures Procedure Name Priority Date/Time Associated Diagnosis Comments INCISION AND DRAINAGE Routine 09/02/2021 8:49 AM CDT documented in this encounter Results * Incision/Drainage (09/02/2021 8:49 AM CDT) Narrative Chato Tirado MD - 09/02/2021 8:49 AM CDT Lauri Brennan NP ? 09/02/2021 11:08 AM Incision/Drainage Date/Time: 09/02/2021 8:49 AM Performed by: Lauri Brennan NP Authorized by: Lauri Brennan NP Consent: ??Consent obtained: ??Verbal ??Consent given by: ??Patient ??Risks, benefits, and alternatives were discussed: yes ?Risks discussed: ??Incomplete drainage, pain, bleeding and infection ??Alternatives discussed: ??No treatment, delayed treatment and alternative treatment [place] protocol: ??Test results available : no ?Imaging studies available: no ?Patient identity confirmed: ??Verbally with patient and arm band Location: ??Type: ??Abscess ??Size: ??1 cm ??Location: ??Upper extremity ??Upper extremity location: ??Arm ??Arm location: ??L upper arm (Axilla area) Pre-procedure details: ??Skin preparation: ??Antiseptic wash Sedation: ??Sedation type: ??None Anesthesia: ??Anesthesia method: ??Local infiltration ??Local anesthetic: ??Lidocaine 1% WITH epi Procedure type: ??Complexity: ??Simple Procedure details: ??Ultrasound guidance: no ?Needle aspiration: no ?Incision types: ??Single straight ??Wound management: ??Probed and deloculated ??Drainage: ??Bloody and purulent ??Drainage amount: ??Moderate ??Wound treatment: ??Wound left open ??Packing materials: ??None (Bacitracin topically) Post-procedure details: ??Procedure completion: ??Tolerated well, no immediate complications Lauri Brennan NP PROCEDURE/MINOR SURGICAL ORDER LAMIN Final Result documented in this encounter Visit Diagnoses Diagnosis Hidradenitis suppurativa of left axilla- Primary Hidradenitis documented in this encounter Administered Medications Inactive Administered Medications - up to 3 most recent administrations Medication Order MAR Action Action Date Dose Rate Site bacitracin ointment Topical, Once, 1 dose, On Wed09/02/21 at 0830 Given by Other 09/02/2021 8:44 AM CDT lidocaine-EPINEPHrine 1 %-1:[id number] injection 10 mL 10 mL, Intradermal, Once, 1 dose, On Wed09/02/21 at 0830 Given by Other 09/02/2021 8:45 AM CDT 10 mLs Left Axilla documented in this encounter Active and Recently Administered Medications Times are shown in CDT. Scheduled Medication Order 08/31/2021 09/01/2021 09/02/2021 bacitracin ointment (COMPLETED) Topical, Once, 1 dose, On Wed09/02/21 at 0830 0844 (Given by Other - Provider: Patricio Fatima RN - Comment: given per Nilsa Crane NP) lidocaine-EPINEPHrine 1 %-1:[id number] injection 10 mL (COMPLETED) 10 mL, Intradermal, Once, 1 dose, On Wed09/02/21 at 0830 0845 (Given by Other - Provider: Patricio Fatima RN - Comment: GIven per Nilsa rCane NP) documented in this encounter Care Teams Vice President Talent Management Relationship Specialty Start Date End Date None, Provider, PCP - General 09/02/21 documented as of this encounter
--- OUTSIDE RECORDS SUMMARY | 2024-02-26 23:12 | XMS_ITS | Referral Summary ---
Author Organization [facility] Address [address] [place] [address] Care Team Providers Care Industrial Automation Specialist Name Role Phone No, Physician Primary Care Provider [phone] Allergies No known active allergies Medications doxycycline [...] on file Legal Sex Female 10:07 AM HUMAN RESOURCES REPRESENTATIVE Gender Identity Not on file Sexual Orientation Not on file Last Filed Vital Signs Vital Sign Reading Time Taken Comments Blood Pressure 125/96 04/30/2023 11:01 AM HUMAN RESOURCES REPRESENTATIVE Pulse 74 04/30/2023 11:01 AM HUMAN RESOURCES REPRESENTATIVE Temperature 36.4 ??C (97.5 ??F) 04/30/2023 11:[address] Respiratory Rate 16 04/30/2023 11:01 AM HUMAN RESOURCES REPRESENTATIVE Oxygen Saturation 100% 04/30/2023 11:01 AM HUMAN RESOURCES REPRESENTATIVE Inhaled Oxygen Concentration - - Weight 83 kg (183 lb) 04/30/2023 11:01 AM HUMAN RESOURCES REPRESENTATIVE Height 157.5 cm (5' 2 ) 04/30/2023 11:01 AM HUMAN RESOURCES REPRESENTATIVE Body Mass Index 33.47 04/30/2023 11:01 AM HUMAN RESOURCES REPRESENTATIVE Plan of Treatment Not on file Insurance [address] [place] [place], [place] [id number] [place] [address] Care Teams Industrial Automation Specialist Relationship Specialty Start Date End Date No, Physician PCP - General 04/29/23
--- OUTSIDE RECORDS SUMMARY | 2024-02-26 23:12 | XMS_ITS ---
Author Organization [facility] Address [address] [place] [address] Care Team Providers Care Electronic Communications Technician Name Role Phone Kota Virk Primary Care Provider Allergies Allergen (clinical drug ingredient) Drug/Non Drug Allergy documented on EMR Reaction Allergy Type Onset Date Status Morphine and Related Unknown Drug Allergy Active REASON FOR VISIT work physical Social History Tobacco Use: Social History Observation Description Date Details (start date - stop date) Never Smoker NA - NA Tobacco Control (Standard) Question Answer Notes Tobacco use: Nonsmoker Vital Signs Weight 187.4 lbs 02/10/2024 Heart Rate 62 /min 02/10/2024 Oximetry 98 % 02/10/2024 Temperature 97.3 degrees Fahrenheit 02/10/20 24 Respiratory Rate 16 /min 02/10/2024 Blood pressure systolic 116 mm Hg 02/10/20 24 Blood pressure diastolic 74 mm Hg 024 Encounters Encounter Location Date Provider Diagnosis [address] [address] 02/10/2024 Kota Virk Physical exam, pre-employment Z02.1 Assessments Encounter Date Diagnosis (ICD Code) Assessment Notes Treatment Notes Treatment Clinical Notes Section Notes 02/10/2024 Physical exam, pre-employment (ICD-10 - Z02.1) No abnormal findings, no concerns, form filled out for employer. Plan Of Treatment Treatment Notes Assessment Notes Physical exam, pre-employment No abnorma l findings, no concerns, form filled out for employer. 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 Healthy, no acute concerns. Last saw PCP approx. 4 months ago. ???Depression Screening:?PHQ-9?Little interest or pleasure in doing things?Not at all ?Feeling down, depressed, or hopeless?Not at all ?Trouble falling or staying asleep, or sleeping too much?Not at all ?Feeling tired or having little energy?Not at all ?Poor appetite or overeating?Not at all ?Feeling bad about yourself or that you are a failure, or have let yourself or your family down?Not at all ?Trouble concentrating on things, such as reading the newspaper or watching television?Not at all ?Moving or speaking so slowly that other people could have noticed; or the opposite, being so fidgety or restless that you have been moving around a lot more than usual?Not at all ?Thoughts that you would be better off or of hurting yourself in some way?Not at all ?Total Score?0 ???Screening:?Beaver Suicide Severity Rating Scale (LF)?Do you want to initiate with?Screener form ?1. Wish to be : Have you wished you were or wished you could go to sleep and not wake up??No ?2. Suicidal Thoughts: Have you actually had any thoughts of killing yourself??No ?6. Suicide Behaviour: Have you ever done anything,started to do anything, or prepared to end your life??No ?Interpretation:?Low Risk ???Constitutional:?Health Literacy?Based on interaction with patient, assessed patient to have?moderate health literacy. * ROS:?General/Constitutional:?Denies?Change in appetite.?Denies?Chills.?Denies?Fever.?Respiratory:?Denies?Dyspnea.?Denies?Cough.?Denies?Wheezing.?Cardiovascular:?Denies?Edema.?Denies?Chest pain.?Denies?Claudication.?Gastrointestinal:?Change in Stools?Denies.?Denies?Abdominal pain.?Denies?Nausea.?Musculoskeletal:?Patient denies?any MSK issues.? * Medical History:? * Surgical History:?hernia rem oval * Hospitalization/Major Diagno stic Procedure:?Denies Past Hospitalization * Family History:?Father: xena rose.?Mother: alive.?3 brother(s) , 2 sister(s) - healthy. 1 son(s) - healthy. .? Step sisters. 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 * Examination: ???General Examination: ?GENERAL APPEARANCE:?well developed, well nourished, in no acute distress.?HEAD:?normocephalic.?EYES:?BOTH EYES, extraocular movement intact (EOMI), pupils equal, round, reactive to light and accommodation.?EARS?BOTH EARS, normal.?NOSE:?nares patent.?THROAT:?normal.?NECK/THYROID:?neck supple, full range of motion, no cervical lymphadenopathy, no thyromegaly.?SKIN:?warm and dry, no rashes.?HEART:?regular rate and rhythm, no murmurs.?LUNGS:?respirations regular and easy, clear to auscultation bilaterally.?ABDOMEN:?bowel sounds present, soft, nontender, nondistended, no masses palpable, no organomegaly .?BACK:?no CVA tenderness, full range of motion.?MUSCULOSKELETAL:?no joint deformity, swelling, redness, or warmth.?EXTREMITIES:?no edema, full range of motion.?NEUROLOGIC:?cranial nerves 2-12 grossly intact, gait normal.?PSYCH:?full range of affect/positive mood, good eye contact, speech clear, no auditory or visual hallucinations, thought content without suicidal ideation or delusions.? Assessment: * Assessment: 1.?Physical exam, pre-employ ment - Z02.1 (Primary)??? Plan: * Treatment: * Procedure Codes:? * Follow Up:?prn * * EYOR WEIGHER OPERATOR Sign off status: Completed true * Provider:?Kota Virk, MSN, AGPCNP -BC Date:?02/10/2024 Generated for [employer]/eTransmitting on:?02/26/2024 11:12 PM CONVEYOR WEIGHER OPERATOR History and Physical Notes * HPI (History of Present Illness) Category Sub-Category Detail Notes Category Not es Depression Screening PHQ-9 Little inte rest or pleasure in doing things: Not at all Feeling down, depressed, or hopeless: No t at all Trouble falling or staying asleep, or sl eeping too much: Not at all Feeling tired or having little energy: N ot at all Poor appetite or overeating: Not at all Feeling bad about yourself o r that you are a failure, or have let yourself or your family down: Not at all Trouble concentrating on thi ngs, such as reading the newspaper or watching television: Not at all Moving or speaking so slowly that other people could have noticed; or the opposite, being so fidgety or restless that you have been moving around a lot more than usual: Not at all Thoughts that you would be b cherie off or of hurting yourself in some way: Not at all Total Score: 0 Constitutional Health Literacy Based on interac tion with patient, assessed patient to have : moderate health literacy. Screening Beaver Suicide Sev erity Rating Scale (LF) Do you want to initiate with: Screener form ?1. Wish to be : Have yo u wished you were or wished you could go to sleep and not wake up?: No ?2. Suicidal Thoughts: Have you actually had any thoughts of killing yourself?: No ?6. Suicide Behaviour: Have you ever done anything,started to do anything, or prepared to end your life?: No ?Interpretation:: Low Risk Examination Category Sub-Category Detail Notes Category Not es General Examination GENERAL APPEARANCE: well dev eloped, well nourished, in no acute distress HEAD: normocephalic EYES: BOTH EYES, extraocul ar movement intact (EOMI), pupils equal, round, reactive to light and accommodation EARS BOTH EARS, normal NOSE: nares patent THROAT: normal NECK/THYROID: neck supple, full ra nge of motion, no cervical lymphadenopathy, no thyromegaly HEART: regular rate and rhy thm, no murmurs LUNGS: respirations regular and easy, clear to auscultation bilaterally ABDOMEN: bowel sounds present , soft, nontender, nondistended, no masses palpable, no organomegaly NEUROLOGIC: cranial nerves 2-12 grossly intact, gait normal cranial nerves 2-12 grossly intact, gait normal SKIN: warm and dry, no adonis hes EXTREMITIES: no edema, full range of motion no edema, full range of samina on BACK: no CVA tenderness, f ull range of motion MUSCULOSKELETAL: no joint deformity, swelling, redness, or warmth PSYCH: full range of affect /positive mood, good eye contact, speech clear, no auditory or visual hallucinations, thought content without suicidal ideation or delusions full range of affect/positiv e mood, good eye contact, speech clear, no auditory or visual hallucinations, thought content without suicidal ideation or delusions
--- OUTSIDE RECORDS SUMMARY | 2024-02-26 23:13 | XMS_ITS | Patient Health Record ---
Author Organization [facility] Address [address] [place] [address] Care Team Providers Care Traffic Control Technician Name Role Phone Kota Virk Primary Care Provider [phone] Allergies Allergen (clinical drug ingredient) Drug/Non Drug Allergy documented on EMR Reaction Allergy Type Onset Date Status Morphine and Related Unknown Drug Allergy Active Reason For Referral No Information Social History Tobacco Use: Social History Observation Description Date Details (start date - stop date) Never Smoker NA - NA Tobacco Control (Standard) Question Answer Notes Tobacco use: Nonsmoker Vital Signs Heart Rate 62 /min 02/10/2024 Temperature 97.3 degrees Fahrenheit 02/10/2024 Respiratory Rate 16 /min 02/10/2024 Blood pressure diastolic 74 mm Hg 02/10/2024 Oximetry 98 % 02/10/2024 Blood pressure systolic 116 mm Hg 02/10/2024 Weight 187.4 lbs 02/10/2024 Encounters Encounter Location Date Provider Diagnosis [address] [place] [address] 02/10/2024 Kota Virk Physical exam, pre-employment Z02.1 Assessments Encounter Date Diagnosis (ICD Code) Assessment Notes Treatment Notes Treatment Clinical Notes Section Notes 02/10/2024 Physical exam, pre-employment (ICD-10 - Z02.1) No abnormal findings, no concerns, form filled out for employer. Plan Of Treatment No Information Insurance Providers Payer Name Payer Address Payer Phone Subscriber Number Group Number Insured Name Patient Relationship to Insured Coverage Start Date Coverage End Date [facility] Claims Department [address] [place] [address] [phone] [id number] Rohini Castellon Self - patient is the insured 4 Medical (General) History Medical History History ICD Code Hidradenitis suppurativa Surgical History Surgery Date(Month/Year) hernia removal Hospitalization History Reason Date(Month/Year)
--- OUTSIDE RECORDS SUMMARY | 2024-02-26 23:13 | XMS_ITS | Continuity of Care Document ---
Author Organization [facility] Address [address] [place] [address] Phone Care Team Providers Care Warehouse Traffic Supervisor Name Role Phone Unavailable Unavailable Unavailable Medications Medication Instructions Dosage Effective Dates (start - stop) Status Comments Vitamin 27 mg-0.8 mg tablet take 1 tablet by oral route every day - Active June substit chipewwa for any of the free vitamins Procedures Procedure Date RN services, up to 15 minutes URINE TEST, BY VISUAL COLOR CO MPARISON METHODS Advance Directives Directive Yes / No Effective Date File Name No Information Encounters Encounter Description Practice Location Reason(s) For Visit Diagnoses Date Provider Providers Copied on Encounter [facility] , [address], [place], [place], [id number], tel:[phone] [facility] No Information No Information [facility] , [address], [place], [place], [address], tel:[phone] [facility] examination or test, positive resultAbsence of menstruation Nurse Registered. [address], [place], [place], [address], . tel:[phone] Referring Provider: Registered Nurse, [address], [place], [address]. tel:[phone] Family History Family Member Type Diagnosis Age [...] OB US < 14 Weeks, Single Fetus ([address]), Ordered on: Ordered History Of Present Illness Encounter Date Complaint History Of Prese nt Illness No Information Functional Status Date Functional Assessmen t No Information Instructions Date Instruction Additional Infor mation No Information Assessments Type Assessment Date No Information Patient Care Teams Name Effective Dates (start - stop) Status Members No Information
--- OUTSIDE RECORDS SUMMARY | 2024-02-26 23:13 | XMS_ITS | Continuity of Care Document ---
Author Organization [facility] Address [address] [place] [address] Phone Care Team Providers Care Application Performance Engineer Name Role Phone Henry Zavala Unavailable Unavailable Advance Directives Directive Yes / No Effective Date File Name No Information Encounters Encounter Description Practice Location Reason(s) For Visit Diagnoses Date Provider Providers Copied on Encounter [facility], [address], [place], [place], [id number], [place] tel:[phone] [facility] No Information 9-200 0 Sally Figueroa. [address] [facility] , [address], [place], [address], [place]. tel:[phone] Family History Family Member Type Diagnosis Age At Onset No Information Payers Payer name Insurance type Covered democrat ID Authoriza tion(s) Medicaid FOR[facility]LY [facility], [facility] [id number] Social History Type Description Quantity Date Captured [...]
== END 2024-02-19 17:29 | disposition home or self-care (01) ==
PROVIDERS: Emergency Provider Physician Assistant
DX: L02.412 Cutaneous abscess of left axilla (principal)
CPT/HCPCS: 10061; 87070; 87075; 87205; 99283

== ENCOUNTER 2024-07-24 19:10 | Emergency (ER) | payer OTHER, SELFPAY ==
--- OUTSIDE RECORDS SUMMARY | 2024-07-24 19:12 | XMS_ITS | Continuity of Care Document ---
Author Organization [facility] Address [address] [place] [address] Phone Care Team Providers Care Electric Power Line Examiner Name Role Phone Unavailable Unavailable Unavailable Medications Medication Instructions Dosage Effective Dates (start - stop) Status Comments Vitamin 27 mg-0.8 mg tablet take 1 tablet by oral route every day - Active June standing rock for any of the free vitamins Procedures Procedure Date RN services, up to 15 minutes URINE TEST, BY VISUAL COLOR CO MPARISON METHODS Advance Directives Directive Yes / No Effective Date File Name No Information Encounters Encounter Description Practice Location Reason(s) For Visit Diagnoses Date Provider Providers Copied on Encounter [facility] , [address], [place], [place], [address], tel:[phone] [facility] No Information No Information [facility] , [address], [place], [place], [address], tel:[phone] [facility] examination or test, positive resultAbsence of menstruation Nurse Registered. [address], [place], [place], [address], . tel:[phone] Referring Provider: Registered Nurse, [address], [place], [address]. tel:[phone] Family History Family Member Type Diagnosis Age At Onset No Information Payers Payer name Insurance type Covered republican ID Authoriza tion(s) No Information Social History Type Description Quantity Date Captured Comments Sex Female Smoking Status No Information Chief Complaint And Reason For Visit No Information Reason For Referral Reason For Referral No Information Plan Of Treatment Date Type Action Status Future Order: Radiology Order OB US < 14 Weeks, Single Fetus ([address]), Ordered on: Ordered History Of Present Illness Encounter Date Complaint History Of Prese nt Illness No Information Functional Status Date Functional Assessmen t No Information Instructions Date Instruction Additional Infor mation No Information Assessments Type Assessment Date No Information Patient Care Teams Name Effective Dates (start - stop) Status Members No Information
--- OUTSIDE RECORDS SUMMARY | 2024-07-24 19:12 | XMS_ITS | Referral Summary ---
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 Gender Identity Not on file Sexual Orientation Not on file Last Filed Vital Signs Vital Sign Reading Time Taken Comments Blood Pressure 125/96 04/30/2023 11:01 AM DECORATIVE ENGRAVER Pulse 74 04/30/2023 11:01 AM DECORATIVE ENGRAVER Temperature 36.4 C (97.5 F) 04/30/2023 11:01 AM DECORATIVE ENGRAVER Respiratory Rate 16 04/30/2023 11:01 AM DECORATIVE ENGRAVER Oxygen Saturation 100% 04/30/2023 11:01 AM DECORATIVE ENGRAVER Inhaled Oxygen Concentration - - Weight 83 kg (183 lb) 04/30/2023 11:01 AM DECORATIVE ENGRAVER Height 157.5 cm (5' 2) 04/30/2023 11:01 AM DECORATIVE ENGRAVER Body Mass Index 33.47 04/30/2023 11:01 AM DECORATIVE ENGRAVER Plan of Treatment Not on file Insurance [address] [place] [id number] [place] [address] Care Teams Corporate General Manager Relationship Specialty Start Date End Date No, Physician PCP - General 04/29/23
--- OUTSIDE RECORDS SUMMARY | 2024-07-24 19:12 | XMS_ITS | Continuity of Care Document ---
Author Organization [facility] Address [address] [place] [address] Phone Care Team Providers Care Gluer Machine Operator Name Role Phone Henry Zavala Unavailable Unavailable Advance Directives Directive Yes / No Effective Date File Name No Information Encounters Encounter Description Practice Location Reason(s) For Visit Diagnoses Date Provider Providers Copied on Encounter [facility], [address], [place], [place], [address], [place] tel:[phone] [facility] No Information 9-[address] 0 Sally Figueroa. [address] [facility] , [address], [place], [address], [place]. tel:[phone] Family History Family Member Type Diagnosis Age At Onset No Information Payers Payer name Insurance type Covered libertarian ID Authoriza tion(s) Medicaid [facility] [id number] Social History Type Description Quantity Date Captured [...]
--- OUTSIDE RECORDS SUMMARY | 2024-07-24 19:12 | XMS_ITS | Clinical Summary ---
Author Organization [facility] Address [address] [place] [address] Care Team Providers Care Wincher Name Role Phone No, Physician Primary Care Provider [phone] Allergies No known active allergies Medications doxycycline [...] on file Legal Sex Female 10:07 AM MS SQL DEVELOPER Gender Identity Not on file Sexual Orientation Not on file Obstetrics History Last Filed Vital Signs Vital Sign Reading Time Taken Comments Blood Pressure 125/96 04/30/2023 11:01 AM MS SQL DEVELOPER Pulse 74 04/30/2023 11:01 AM MS SQL DEVELOPER Temperature 36.4 C (97.5 F) 04/30/2023 11:01 AM MS SQL DEVELOPER Respiratory Rate 16 04/30/2023 11:01 AM MS SQL DEVELOPER Oxygen Saturation 100% 04/30/2023 11:01 AM MS SQL DEVELOPER Inhaled Oxygen Concentration - - Weight 83 kg (183 lb) 04/30/2023 11:01 AM MS SQL DEVELOPER Height 157.5 cm (5' 2) 04/30/2023 11:01 AM MS SQL DEVELOPER Body Mass Index 33.47 04/30/2023 11:01 AM MS SQL DEVELOPER Plan of Treatment Health Maintenance Due Date Last Done Comments Cervical Cancer Screening 1992 Depression Screening 1992 Hepatitis C Screening 1992 DTaP/Tdap/Td Vaccine (1 - Tdap) 09/13/2003 Varicella Vaccines (1 of 2 - 13+ 2-dose series) 2005 Hepatitis B Screening 2010 Regular Well Visit/Exam 18-64 2010 Influenza Vaccine (Season Ended) 2024 HPV Vaccines Aged Out No longer eligi ble based on patient's age to complete this topic Pneumococcal vaccine <65 Aged Out No longer eligible based on patient's age to complete this topic Insurance [facility] Care Teams Wincher Relationship Specialty Start Date End Date No, Physician PCP - General 04/29/23
--- OUTSIDE RECORDS SUMMARY | 2024-07-24 19:12 | XMS_ITS | Patient Health Record ---
Author Organization [facility] Address [address] [place] [address] Care Team Providers Care Waste Disposal Attendant Name Role Phone Kota Virk Primary Care Provider [phone] Allergies Allergen (clinical drug ingredient) Drug/Non Drug [...] 02/10/2024 Encounters Encounter Location Date Provider Diagnosis [address] [place] [address] 02/10/2024 Kota Virk Physical exam, pre-employment Z02.1 [...] Insured Coverage Start Date Coverage End Date [facility] Claims Department [address] [place] [address] [phone] [id number] Rohini Catsellon Self - patient is the insured 4 Medical (General) History Medical History History ICD Code Hidradenitis suppurativa Surgical History Surgery Date(Month/Year) hernia removal Hospitalization History Reason Date(Month/Year)
[2024-07-24 19:13] VITALS: BP 145/82; PULSE 97; RESP 20; TEMP 36.2; O2SAT 99
--- OUTSIDE RECORDS SUMMARY | 2024-07-24 21:26 | XMS_ITS | Referral Summary ---
Author Organization [facility] Address [address] [place] [address] Care Team Providers Care Cattle Killer Name Role Phone No, Physician Primary Care Provider [phone] Allergies No known active allergies Medications doxycycline [...] on file Legal Sex Female 10:07 AM WIRE STRETCHER Gender Identity Not on file Sexual Orientation Not on file Last Filed Vital Signs Vital Sign Reading Time Taken Comments Blood Pressure 125/96 04/30/2023 11:01 AM WIRE STRETCHER Pulse 74 04/30/2023 11:01 AM WIRE STRETCHER Temperature 36.4 C (97.5 F) 04/30/2023 11:01 AM WIRE STRETCHER Respiratory Rate 16 04/30/2023 11:01 AM WIRE STRETCHER Oxygen Saturation 100% 04/30/2023 11:01 AM WIRE STRETCHER Inhaled Oxygen Concentration - - Weight 83 kg (183 lb) 04/30/2023 11:01 AM WIRE STRETCHER Height 157.5 cm (5' 2) 04/30/2023 11:01 AM WIRE STRETCHER Body Mass Index 33.47 04/30/2023 11:01 AM WIRE STRETCHER Plan of Treatment Not on file Insurance [address] [place] [id number] [place] [address] Care Teams Cattle Killer Relationship Specialty Start Date End Date No, Physician PCP - General 04/29/23
--- OUTSIDE RECORDS SUMMARY | 2024-07-24 21:26 | XMS_ITS | Clinical Summary ---
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 Gender Identity Not on file Sexual Orientation Not on file Obstetrics History Last Filed Vital Signs Vital Sign Reading Time Taken Comments Blood Pressure 125/96 04/30/2023 11:01 AM RESIDENTIAL BUILDING INSPECTOR Pulse 74 04/30/2023 11:01 AM RESIDENTIAL BUILDING INSPECTOR Temperature 36.4 C (97.5 F) 04/30/2023 11:01 AM RESIDENTIAL BUILDING INSPECTOR Respiratory Rate 16 04/30/2023 11:01 AM RESIDENTIAL BUILDING INSPECTOR Oxygen Saturation 100% 04/30/2023 11:01 AM RESIDENTIAL BUILDING INSPECTOR Inhaled Oxygen Concentration - - Weight 83 kg (183 lb) 04/30/2023 11:01 AM RESIDENTIAL BUILDING INSPECTOR Height 157.5 cm (5' 2) 04/30/2023 11:01 AM RESIDENTIAL BUILDING INSPECTOR Body Mass Index 33.47 04/30/2023 11:01 AM RESIDENTIAL BUILDING INSPECTOR Plan of Treatment Health Maintenance Due Date [...] patient's age to complete this topic Insurance [facility] Care Teams Sas Analyst Relationship Specialty Start Date End Date No, Physician PCP - General 04/29/23
--- OUTSIDE RECORDS SUMMARY | 2024-07-24 21:26 | XMS_ITS | Continuity of Care Document ---
Author Organization [facility] Address [address] [place] [address] Phone Care Team Providers Care Wildlife Protector Name Role Phone Unavailable Unavailable Unavailable Medications Medication Instructions Dosage Effective Dates (start - stop) Status Comments Vitamin 27 mg-0.8 mg tablet take 1 tablet by oral route every day - Active June z[place] for any of the free vitamins Procedures Procedure Date RN services, up to 15 minutes URINE TEST, BY VISUAL COLOR CO MPARISON METHODS Advance Directives Directive Yes / No Effective Date File Name No Information Encounters Encounter Description Practice Location Reason(s) For Visit Diagnoses Date Provider Providers Copied on Encounter [facility] , [address], [place], [place], [address], tel:[phone] [facility] No Information No Information [facility] , [address], [place], [place], [address], tel:[phone] [facility] examination or test, positive resultAbsence of menstruation Nurse Registered. [address], [place], [place], [address], . tel:[phone] Referring Provider: Registered Nurse, [address], [place], [address]. tel:[phone] Family History Family Member Type Diagnosis Age [...] OB US < 14 Weeks, Single Fetus ([id number]), Ordered on: Ordered History Of Present Illness Encounter Date Complaint History Of Prese nt Illness No Information Functional Status Date Functional Assessmen t No Information Instructions Date Instruction Additional Infor mation No Information Assessments Type Assessment Date No Information Patient Care Teams Name Effective Dates (start - stop) Status Members No Information
--- OUTSIDE RECORDS SUMMARY | 2024-07-24 21:26 | XMS_ITS | Continuity of Care Document ---
Author Organization [facility] Address [address] [place] [address] Phone Care Team Providers Care Geological Sample Tester Name Role Phone Henry Zavala Unavailable Unavailable Advance Directives Directive Yes / No Effective Date File Name No Information Encounters Encounter Description Practice Location Reason(s) For Visit Diagnoses Date Provider Providers Copied on Encounter [facility], [address], [place], [place], [address], [place] tel:[phone] SEC [facility] No Information 9-200 0 Sally Figueroa. [address] [facility] , [address], [place], [address], [place]. tel:[phone] Family History Family Member Type Diagnosis Age At Onset No Information Payers Payer name Insurance type Covered green party ID Authoriza tion(s) [facility] [id number] Social History Type Description Quantity Date Captured [...]
--- NOTE | 2024-07-24 21:52 | PC.NURSE ---
lido 1% , lac kit, scapel 11 blade at bedside for I&D
--- NOTE | 2024-07-24 22:06 | ED.SKABFB ---
HPI - Skin/Abscess/Foreign Bdy General Chief complaint: Skin/Abscess/Foreign Body Stated complaint: boil under arm Time Seen by Provider: 07/24/24 21:13 Source: patient Mode of arrival: ambulatory Limitations: no limitations History of Present Illness HPI narrative: Patient presents with a boil under her left arm, first appreciated on Wednesday, worse by Wednesday. No drainage. No history of MRSA. no fever. History of the same in bilateral arms/axillae and right breast. States she frequently gets them drained. Diagnosed with hydradenitis suppurtiva by Dr Betty [place]. Referred to dermatology but they never called her. She has been trying to keep it clean and apply warm compresses. No pain meds taken. No chills. 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 HEAD: Normocephalic, atraumatic. EYES: Non injected, non icteric ENT: Nares clear, no rhinorrhea or epistaxis. Gross auditory acuity intact. NECK: Supple. No meningismus. CHEST: Speaking in full sentences. No respiratory distress. HEART: Regular rate and rhythm. . ABDOMEN: Soft, nondistended. No rigidity or guarding. Not peritoneal EXTREMITIES: Normal range of motion. SKIN: Warm, dry. Large abscess in left axilla, appears connected but in particular there are two tender areas, fluctuant. Not draining spontaneously NEURO: No focal deficits. Alert and oriented. Answering questions. Following commands. Normal speech without aphasia or dysarthria. PSYCH: Normal mood and affect. Course Vital Signs Vital signs: Vital Signs Temperature 97.2 F L 07/24/24 19:13 Pulse Rate 97 07/24/24 19:13 Respiratory Rate 20 07/24/24 19:13 Blood Pressure 145/82 H 07/24/24 19:13 Pulse Oximetry 99 07/24/24 19:13 Oxygen Delivery Room Air 07/24/24 19:13 Temperature 97.2 F L 07/24/24 19:13 Pulse Rate 97 07/24/24 19:13 Respiratory Rate 20 07/24/24 19:13 Blood Pressure 145/82 H 07/24/24 19:13 Pulse Oximetry 99 07/24/24 19:13 Oxygen Delivery Room Air 07/24/24 19:13 Procedures Abscess I/D left axilla: Date of Incision: 07/24/24 Side (if applicable): left Sedation/analgesia: none Local Anesthetic: lidocaine 1% Amount of anesthesia used (mL): 5 Technique: incised with #11 blade Amount of fluid expressed (mL): 5 Irrigation: No Packing used?: none I&D Results: Pus and Blood Complications: pain MDM - Skin/Abscess/Foreign Bdy MDM Narrative Medical decision making narrative: Patient presents with concern for a boil under her left arm, at the axilla. In the emergency department she is afebrile with appropriate vital signs, only mild hypertension. Patient lists an allergy to morphine she got itchy but it felt like it was internal. This occurred when she was given this medication intravenously during an abdominal surgery. The risk of this occurrence is less likely with a Ophir tablet given p.o. so will trial this and assess while patient is in the ED. POCUS is performed which demonstrates a large abscess, from 1cm in depth to 1.5cm in depth at its maximum, 8cm in length. Although routine drainage inch of abscesses related HS is not recommended, I do believe the benefits outweigh the risk in this case given the size of the lesion and severity of pain due to adjacent compression. I&D performed as above. Culture obtained. Patient given first dose of antibiotic with the rest of the course prescribed. Given size of abscess and complexity, dual antibiotics are used. Also prescribed analgesic medication. Differential Diagnosis Differential diagnosis: Likely abscess of skin or subcutaneous tissue and other (hydradenitis suppurtiva) Medical Records Attestation: I reviewed the patient's medical records. Medical records narrative: History of previous in same area January 2024 Discharge Plan Discharge Clinical Impression: Abscess of axilla, left Patient Disposition: Home Condition: Stable Instructions: Antibiotic Form, Abscess (ED), Incision and Drainage (ED) Additional Instructions: Acetaminophen/Tylenol (maximum 4000 mg per day) is safe to take with NSAIDs (ibuprofen/Motrin) for pain relief. Take the entire course of your antibiotics. Follow-up with your primary care physician. If you do not have 1 the name of the doctors listed below. They can refer you to a er tech alternatively you can call the one you had previously been referred to or contact your insurance company to see who is in network.Keep the area clean warm and dry. Warm soapy water is fine. It may continue to drain over the coming days. Return if any new/worsening / unmanaged symptoms (e.g. fever >100.4F, intractable pain not responding to the combination of medications, etc.). A work note has been provided but it is also understandable if you do not wish to use it given it is your first day of work tomorrow,. Patient Language: Syriac Prescriptions: New ibuprofen 600 mg tablet 600 mg PO TID PRN (Reason: pain) Qty: 30 0RF acetaminophen 500 mg capsule 1,000 mg PO Q6H PRN (Reason: pain) Qty: 30 0RF cephalexin 500 mg capsule 500 mg PO Q8H 5 Days Qty: 15 0RF sulfamethoxazole-trimethoprim 800-160 mg tablet 1 tablet PO Q12H 5 Days Qty: 10 0RF No Action doxycycline hyclate 100 mg tablet 100 mg PO BID 7 Days Qty: 14 0RF Follow-up/Referrals: Karey Beyer MD [Physician] - PHYSICIAN,RECRUITMENT ASSISTANT [Primary Care Provider] - Stand Alone Forms: Work/School Release IP Time of Disposition: 23:34
[2024-07-24] MEDS: HYDROcodone/acetaminophen (*CRX) 5-325 MG TABLET 1 TAB PO (22:39)
[2024-07-24] MEDS: SULFAMETHOXAZOLE/TRIMETHOPRIM 800/160 MG DS TABLET 1 TAB PO (23:48)
[2024-07-24] MEDS: CEPHALEXIN 500 MG CAPSULE PO (23:48)
[2024-07-24] MEDS: KETOROLAC 30 MG/ML VIAL (*BKC) IM (23:49)
== END 2024-07-24 23:56 | disposition home or self-care (01) ==
PROVIDERS: Emergency Provider Student in an Organized Health Care Education/Training Program
DX: L02.412 Cutaneous abscess of left axilla (principal)
CPT/HCPCS: 10060; 87070; 87075; 87205; 96372; 99283; A9270; J1885; J2003

== ENCOUNTER 2024-09-01 12:17 | Emergency (ER) | payer SELFPAY ==
--- NOTE | ~2024-09-01 | XR_ITS ---
CHEST RADIOGRAPH, PA AND LATERAL CLINICAL HISTORY: cough x 3w . COMPARISON: 12/15/2019 TECHNIQUE: PA and lateral views of the chest. FINDINGS The cardiomediastinal silhouette is unremarkable. Trace peribronchial thickening, right greater than left. The lungs are otherwise clear. IMPRESSION: Trace peribronchial thickening, without focal infiltrate or effusion. Reviewed, dictated and finalized at location A.
--- OUTSIDE RECORDS SUMMARY | 2024-09-01 12:19 | XMS_ITS | Continuity of Care Document ---
Author Organization [facility] Address [address] [place] [address] Phone Care Team Providers Care Topper Packer Name Role Phone Unavailable Unavailable Unavailable Medications Medication Instructions Dosage Effective Dates (start - stop) Status Comments Vitamin 27 mg-0.8 mg tablet take 1 tablet by oral route every day - Active June [place] for any of the free vitamins Procedures Procedure Date RN services, up to 15 minutes URINE TEST, BY VISUAL COLOR CO MPARISON METHODS Advance Directives Directive Yes / No Effective Date File Name No Information Encounters Encounter Description Practice Location Reason(s) For Visit Diagnoses Date Provider Providers Copied on Encounter [facility] , [address], [place], [place], [address], tel:[phone] [facility] No Information No Information [facility] , [address], [place], [place], [address], tel:[phone] [facility] examination or test, positive resultAbsence of menstruation Nurse Registered. [address], [place], [place], [address], . tel:[phone] Referring Provider: Registered Nurse, [address], [place], [address]. tel:[phone] Family History Family Member Type Diagnosis Age [...] OB US < 14 Weeks, Single Fetus ([id number]), Ordered on: Ordered History Of Present Illness Encounter Date Complaint History Of Prese nt Illness No Information Functional Status Date Functional Assessmen t No Information Instructions Date Instruction Additional Infor mation No Information Assessments Type Assessment Date No Information Patient Care Teams Name Effective Dates (start - stop) Status Members No Information
--- OUTSIDE RECORDS SUMMARY | 2024-09-01 12:19 | XMS_ITS | Clinical Summary ---
Author Organization [facility] Address [address] [place] [address] Care Team Providers Care Spray Machine Tender Name Role Phone No, Physician Primary Care Provider [phone] Allergies No known active allergies Medications doxycycline [...] naproxen alone. Take with food.) Collaborating physician aRo Mario MD 10 tablet 04/29/19 24 Active [...] on file Legal Sex Female 10:07 AM SENIOR CARE MANAGER Gender Identity Not on file Sexual Orientation Not on file Obstetrics History Last Filed Vital Signs Vital Sign Reading Time Taken Comments Blood Pressure 125/96 04/30/2023 11:01 AM SENIOR CARE MANAGER Pulse 74 04/30/2023 11:01 AM SENIOR CARE MANAGER Temperature 36.4 C (97.5 F) 04/30/2023 11:01 AM SENIOR CARE MANAGER Respiratory Rate 16 04/30/2023 11:01 AM SENIOR CARE MANAGER Oxygen Saturation 100% 04/30/2023 11:01 AM SENIOR CARE MANAGER Inhaled Oxygen Concentration - - Weight 83 kg (183 lb) 04/30/2023 11:01 AM SENIOR CARE MANAGER Height 157.5 cm (5' 2) 04/30/2023 11:01 AM SENIOR CARE MANAGER Body Mass Index 33.47 04/30/2023 11:01 AM SENIOR CARE MANAGER Plan of Treatment Health Maintenance Due Date [...] patient's age to complete this topic Insurance [facility] Care Teams Spray Machine Tender Relationship Specialty Start Date End Date No, Physician PCP - General 04/29/23
--- OUTSIDE RECORDS SUMMARY | 2024-09-01 12:19 | XMS_ITS | Referral Summary ---
Author Organization [facility] Address [address] [place] [address] Care Team Providers Care Business Planning Analyst Name Role Phone No, Physician Primary Care Provider [phone] Allergies No known active allergies Medications doxycycline [...] on file Legal Sex Female 10:07 AM NUT SIFTER Gender Identity Not on file Sexual Orientation Not on file Last Filed Vital Signs Vital Sign Reading Time Taken Comments Blood Pressure 125/96 04/30/2023 11:01 AM NUT SIFTER Pulse 74 04/30/2023 11:01 AM NUT SIFTER Temperature 36.4 C (97.5 F) 04/30/2023 11:01 AM NUT SIFTER Respiratory Rate 16 04/30/2023 11:01 AM NUT SIFTER Oxygen Saturation 100% 04/30/2023 11:01 AM NUT SIFTER Inhaled Oxygen Concentration - - Weight 83 kg (183 lb) 04/30/2023 11:01 AM NUT SIFTER Height 157.5 cm (5' 2) 04/30/2023 11:01 AM NUT SIFTER Body Mass Index 33.47 04/30/2023 11:01 AM NUT SIFTER Plan of Treatment Not on file Insurance [address] [place] [place] [id number] [place] [address] Care Teams Business Planning Analyst Relationship Specialty Start Date End Date No, Physician PCP - General 04/29/23
--- OUTSIDE RECORDS SUMMARY | 2024-09-01 12:19 | XMS_ITS | Continuity of Care Document ---
Author Organization [facility] Address [address] [place] [address] Phone Care Team Providers Care Cad Cam Programmer Name Role Phone Henry Zavala Unavailable Unavailable Advance Directives Directive Yes / No Effective Date File Name No Information Encounters Encounter Description Practice Location Reason(s) For Visit Diagnoses Date Provider Providers Copied on Encounter [facility], [address], [place], [place], [address], [place] tel:[phone] SEC [facility] No Information 9-200 0 Sally Figueroa. [address] [facility] , [address], [place], [address], [place]. tel:[phone] Family History Family Member Type Diagnosis Age At Onset No Information Payers Payer name Insurance type Covered republican ID Authoriza tion(s) Medicaid [facility] [id number] Social History Type Description Quantity Date Captured [...]
--- OUTSIDE RECORDS SUMMARY | 2024-09-01 12:19 | XMS_ITS | Clinical Summary ---
Author Organization [facility] Address [address] [place] [address] Care Team Providers Care Mining Speculator Name Role Phone None, Provider MD Primary [...] Active Problems No known active problems Immunizations Immunization Administration Dates Next Due PFIZER COVID-19 (ORIGINAL [...] Comments Blood Pressure 148/71 02/20/2023 1:21 PM CONSTRUCTION PROJECT ENGINEER Pulse 89 02/20/2023 1:21 PM CONSTRUCTION PROJECT ENGINEER Temperature 36.4 C (97.5 F) 02/20/2023 1:21 PM CONSTRUCTION PROJECT ENGINEER Respiratory Rate 18 02/20/2023 1:21 PM CONSTRUCTION PROJECT ENGINEER Oxygen Saturation 100% 02/20/2023 1:21 PM CONSTRUCTION PROJECT ENGINEER Inhaled Oxygen Concentration - - Weight 86.5 kg (190 lb 11.2 oz) 02/20/2023 1:21 PM CONSTRUCTION PROJECT ENGINEER Height 157.5 cm (5' 2) 02/20/2023 1:21 PM CONSTRUCTION PROJECT ENGINEER Body Mass Index 34.88 02/20/2023 1:21 PM CONSTRUCTION PROJECT ENGINEER Plan of Treatment Health Maintenance Due Date [...] 5 Years 2022 Cervical Cancer Screening wi HPV 2022 COVID-19 Vaccine (3 - 2023-2 5 season) 2023 07/23/2020, 07/02/2020 HPV Vaccines Aged Out No longer eligi ble based on patient's age to complete this topic Meningococcal B Vaccine Aged Out No l onger eligible based on patient's age to complete this topic Meningococcal Vaccine Aged Out No jayne bull eligible based on patient's age to complete this topic Pneumococcal Vaccine: Pediatrics (0 to 5 Years) and At-Risk Patients (6 to 49 Years) Aged Out No longer eligible b ased on patient's age to complete this topic RSV Immunizations Under 20 Months Aged Out No longer eligible b ased on patient's age to complete this topic Insurance Care Teams Mining Speculator Relationship Specialty Start Date End Date None, Provider, PCP - General 09/02/21
--- OUTSIDE RECORDS SUMMARY | 2024-09-01 12:20 | XMS_ITS | Patient Health Record ---
Author Organization [facility] Address [address] [place] [address] Care Team Providers Care Director Religious Education Name Role Phone Kota Virk Primary Care [...] 02/10/2024 Encounters Encounter Location Date Provider Diagnosis [address] [place] [address] 02/10/2024 Kota Virk Physical exam, pre-employment Z02.1 [...] Insured Coverage Start Date Coverage End Date [facility] Claims Department [address] [place] [address] [phone] [id number] Rohini Castellon Self - patient is the insured 4 Medical (General) History Medical History History ICD Code Hidradenitis suppurativa Surgical History Surgery Date(Month/Year) hernia removal Hospitalization History Reason Date(Month/Year)
[2024-09-01 12:22] VITALS: BP 131/72; PULSE 69; RESP 18; TEMP 36.4; O2SAT 99
--- OUTSIDE RECORDS SUMMARY | 2024-09-01 12:54 | XMS_ITS | Continuity of Care Document ---
Author Organization [facility] Address [address] [place] [address] Phone Care Team Providers Care Application Penetration Tester Name Role Phone Unavailable Unavailable Unavailable Medications Medication Instructions Dosage Effective Dates (start - stop) Status Comments Vitamin 27 mg-0.8 mg tablet take 1 tablet by oral route every day - Active June [place] for any of the free vitamins Procedures Procedure Date RN services, up to 15 minutes URINE TEST, BY VISUAL COLOR CO MPARISON METHODS Advance Directives Directive Yes / No Effective Date File Name No Information Encounters Encounter Description Practice Location Reason(s) For Visit Diagnoses Date Provider Providers Copied on Encounter [facility] , [address], [place], [place], [address], tel:[phone] [facility] No Information No Information [facility] , [address], [place], [place], [address], tel:[phone] [facility] examination or test, positive resultAbsence of menstruation Nurse Registered. [address], [place], [place], [address], . tel:[phone] Referring Provider: Registered Nurse, [address], [place], [address]. tel:[phone] Family History Family Member Type Diagnosis Age [...] OB US < 14 Weeks, Single Fetus ([id number]), Ordered on: Ordered History Of Present Illness Encounter Date Complaint History Of Prese nt Illness No Information Functional Status Date Functional Assessmen t No Information Instructions Date Instruction Additional Infor mation No Information Assessments Type Assessment Date No Information Patient Care Teams Name Effective Dates (start - stop) Status Members No Information
--- OUTSIDE RECORDS SUMMARY | 2024-09-01 12:54 | XMS_ITS | Referral Summary ---
Author Organization [facility] Address [address] [place] [address] Care Team Providers Care Kier Operator Name Role Phone No, Physician Primary Care Provider [phone] Allergies No known active allergies Medications doxycycline [...] to reduce pain and swelling. Collaborating physician aRo Mario MD 30 tablet 04/29/19 24 Active [...] on file Legal Sex Female 10:07 AM COMPRESSOR OPERATOR PORTABLE Gender Identity Not on file Sexual Orientation Not on file Last Filed Vital Signs Vital Sign Reading Time Taken Comments Blood Pressure 125/96 04/30/2023 11:01 AM COMPRESSOR OPERATOR PORTABLE Pulse 74 04/30/2023 11:01 AM COMPRESSOR OPERATOR PORTABLE Temperature 36.4 C (97.5 F) 04/30/2023 11:01 AM COMPRESSOR OPERATOR PORTABLE Respiratory Rate 16 04/30/2023 11:01 AM COMPRESSOR OPERATOR PORTABLE Oxygen Saturation 100% 04/30/2023 11:01 AM COMPRESSOR OPERATOR PORTABLE Inhaled Oxygen Concentration - - Weight 83 kg (183 lb) 04/30/2023 11:01 AM COMPRESSOR OPERATOR PORTABLE Height 157.5 cm (5' 2) 04/30/2023 11:01 AM COMPRESSOR OPERATOR PORTABLE Body Mass Index 33.47 04/30/2023 11:01 AM COMPRESSOR OPERATOR PORTABLE Plan of Treatment Not on file Insurance [address] [place] [place] [id number] [place] [address] Care Teams Kier Operator Relationship Specialty Start Date End Date No, Physician PCP - General 04/29/23
--- OUTSIDE RECORDS SUMMARY | 2024-09-01 12:54 | XMS_ITS | Clinical Summary ---
Author Organization [facility] Address [address] [place] [address] Care Team Providers Care Civil Preparedness Officer Name Role Phone No, Physician Primary Care Provider [phone] Allergies No known active allergies Medications doxycycline [...] on file Legal Sex Female 10:07 AM COILED TUBING OPERATOR Gender Identity Not on file Sexual Orientation Not on file Obstetrics History Last Filed Vital Signs Vital Sign Reading Time Taken Comments Blood Pressure 125/96 04/30/2023 11:01 AM COILED TUBING OPERATOR Pulse 74 04/30/2023 11:01 AM COILED TUBING OPERATOR Temperature 36.4 C (97.5 F) 04/30/2023 11:01 AM COILED TUBING OPERATOR Respiratory Rate 16 04/30/2023 11:01 AM COILED TUBING OPERATOR Oxygen Saturation 100% 04/30/2023 11:01 AM COILED TUBING OPERATOR Inhaled Oxygen Concentration - - Weight 83 kg (183 lb) 04/30/2023 11:01 AM COILED TUBING OPERATOR Height 157.5 cm (5' 2) 04/30/2023 11:01 AM COILED TUBING OPERATOR Body Mass Index 33.47 04/30/2023 11:01 AM COILED TUBING OPERATOR Plan of Treatment Health Maintenance Due Date [...] patient's age to complete this topic Insurance [facility] Care Teams Civil Preparedness Officer Relationship Specialty Start Date End Date No, Physician PCP - General 04/29/23
--- OUTSIDE RECORDS SUMMARY | 2024-09-01 12:54 | XMS_ITS | Clinical Summary ---
Author Organization [facility] Address [address] [place] [address] Care Team Providers Care Wireworker Name Role Phone None, Provider MD Primary [...] Comments Blood Pressure 148/71 02/20/2023 1:21 PM COLLECTIONS CURATOR Pulse 89 02/20/2023 1:21 PM COLLECTIONS CURATOR Temperature 36.4 C (97.5 F) 02/20/2023 1:21 PM COLLECTIONS CURATOR Respiratory Rate 18 02/20/2023 1:21 PM COLLECTIONS CURATOR Oxygen Saturation 100% 02/20/2023 1:21 PM COLLECTIONS CURATOR Inhaled Oxygen Concentration - - Weight 86.5 kg (190 lb 11.2 oz) 02/20/2023 1:21 PM COLLECTIONS CURATOR Height 157.5 cm (5' 2) 02/20/2023 1:21 PM COLLECTIONS CURATOR Body Mass Index 34.88 02/20/2023 1:21 PM COLLECTIONS CURATOR Plan of Treatment Health Maintenance Due Date [...] to complete this topic Insurance Care Teams Wireworker Relationship Specialty Start Date End Date None, Provider, PCP - General 09/02/21
--- OUTSIDE RECORDS SUMMARY | 2024-09-01 12:54 | XMS_ITS | Continuity of Care Document ---
Author Organization [facility] Address [address] [place] [address] Phone Care Team Providers Care Cocoa Butter Filter Operator Name Role Phone Henry Zavala Unavailable Unavailable Advance Directives Directive Yes / No Effective Date File Name No Information Encounters Encounter Description Practice Location Reason(s) For Visit Diagnoses Date Provider Providers Copied on Encounter [facility], [address], [place], [place], [id number], [place] tel:[phone] SEC [facility] No Information [id number] Sally Figueroa. [address] , [address], [place], [address], [place]. tel:[phone] Family History Family Member Type Diagnosis Age At Onset No Information Payers Payer name Insurance type Covered constitution party ID Authoriza tion(s) Medicaid [facility] [id number] Social History Type Description Quantity Date Captured [...]
[2024-09-01 14:02] LABS: Influenza A QL RT-PCR Negative (Negative); Influenza B QL RT-PCR Negative (Negative); RSV RNA, RT-PCR Negative (Negative); SARS-CoV-2 RNA PCR Positive (Negative)
--- NOTE | 2024-09-01 14:06 | ED_ITS ---
HPI - URI/Sore Throat General Chief Complaint: Upper Respiratory Infection Stated Complaint: COUGH [id number]. Time Seen by Provider: 09/01/24 12:24 Source: patient Mode of arrival: ambulatory Limitations: no limitations History of Present Illness HPI Narrative: Patient is a 33-year-old female who presents the ED with report of a cough. Patient reports he has had a persistent cough for the last 3 weeks. She was co ngested at the beginning of the cough, but states this has slightly improved. She has been taking [id number]-[id number] medications without improvement. Denies production of sputum associated with cough. Denies chest pain, shortness of breath. Denies fevers. Related Data Allergies Allergy/AdvReac Type Severity Reaction Status Date / Time morphine Allergy Itching Verified 07/24/24 19:18 Review of Systems Review of Systems: All systems reviewed & are unremarkable except as noted in HPI. 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 HEAD: Normocephalic, atraumatic. RESPIRATORY: Airway patent, respirations nonlabored. Clear to auscultation bilaterally, no rales, rhonchi, wheezing. No significant focal lung sounds. Frequent coughing on exam. CARDIOVASCULAR: Regular rate and rhythm without murmurs, rubs, or gallops. MUSCULOSKELETAL: Moves all extremities. No gross deformities. SKIN: Warm, dry, normal color. NEURO: A&O X3. Speech clear. PSYCHIATRIC: Appropriate mood and affect. Normal interaction. Course Vital Signs Vital signs: Vital Signs Temperature 97.6 F 09/01/24 12:22 Pulse Rate 69 07/04/25 12:22 Respiratory Rate 18 09/01/24 12:22 Blood Pressure 131/72 09/01/24 12:22 Pulse Oximetry 99 09/01/24 12:22 Oxygen Delivery Room Air 09/01/24 12:22 Temperature 97.6 F 09/01/24 12:22 Pulse Rate 69 09/01/24 12:22 Respiratory Rate 18 09/01/24 12:22 Blood Pressure 131/72 09/01/24 12:22 Pulse Oximetry 99 09/01/24 12:22 Oxygen Delivery Room Air 09/01/24 12:22 MDM - URI/Sore Throat MDM Narrative Medical decision making narrative: Patient presents to ED with history of persistent dry cough. Vital signs stable upon arrival. Patient in no acute distress. Oxygen stable on room air. Chest x-ray with trace peribronchial thickening. No other focal infiltr ate/consolidation. COVID testing resulted positive. Likely cause of prolonged cough. Will discharge with COVID instructions, Tessalon Perles for home. Advised to continue [id number]-lnq-ermftaw therapies as needed. Given return precautions. Discharged in stable condition. Medical Records Attestation: I reviewed the patient's medical records. Lab Data Attestation: I reviewed the patient's lab results. Labs: Lab Results 09/01/24 Range/Units 13:21 Influenza A (RT-PCR) Negative (Negative) Influenza B (RT-PCR) Negative (Negative) RSV (RT-PCR) Negative (Negative) SARS-CoV-2 RNA (RT-PCR) Positive A (Negative) Imaging Data Attestation: I personally reviewed and interpreted this imaging study as follows: Radiologist's impression: ITS Impressions Chest X-Ray 09/01/24 13:03 IMPRESSION: Trace peribronchial thickening, without focal infiltrate or effusion. Discharge Plan Discharge Clinical Impression: COVID-19 Cough Qualifiers: Cough type: acute Qualified Code(s): R05.1 - Acute cough Patient Disposition: Home Condition: Stable Instructions: Antibiotic Form, Cold Symptoms (ED), COVID-19 (Coronavirus Disease 2019) (ED), How to Recover from COVID-19 at Home (ED) Additional Instructions: You were diagnosed with COVID-19 today. Stay well-hydrated at home. Recommend electrolyte rich fluids, Gatorade, Pedialyte, body armor. Use Tessalon Perles as needed for cough. Continue Tylenol and Ibuprofen for discomfort and/or fevers. Recommend continuing over-t he-counter cough and cold medicines for symptom relief, Delsym, Mucinex, DayQuil, NyQuil, Sudafed, Robitussin, TheraFlu. Follow with primary care doctor upon resolution of symptoms. Return to the ED if you experience chest pain, difficulty breathing, unable to keep down food or drink, severe pain, or any other symptoms of concern. Patient Language: Lithuanian Prescriptions: New benzonatate 200 mg capsule 200 mg PO TID PRN (Reason: cough) Qty: 20 0RF No Action doxycycline hyclate 100 mg tablet 100 mg PO BID 7 Days Qty: 14 0RF ibuprofen 600 mg tablet 600 mg PO TID PRN (Reason: pain) Qty: 30 0RF acetaminophen 500 mg capsule 1,000 mg PO Q6H PRN (Reason: pain) Qty: 30 0RF cephalexin 500 mg capsule 500 mg PO Q8H 5 Days Qty: 15 0RF sulfamethoxazole-trimethoprim 800-160 mg tablet 1 tablet PO Q12H 5 Days Qty: 10 0RF Follow-up/Referrals: Jibmo,Oumou Rogers [Primary Care Provider] - Time of Disposition: 14:11
== END 2024-09-01 14:24 | disposition home or self-care (01) ==
PROVIDERS: Emergency Provider Physician Assistant; PCP Internal Medicine Infectious Disease
DX: U07.1 COVID-19 (principal)
CPT/HCPCS: 71046; 87637; 99283

== ENCOUNTER 2024-11-29 03:31 | Emergency (ER) | payer OTHER, SELFPAY ==
--- NOTE | ~2024-11-29 | CT_ITS ---
EXAMINATION: CT abdomen pelvis w con DATE: 11/29/2024 05:15 INDICATION: Right upper quadrant abdominal pain. TECHNIQUE: Computed tomography (CT) of the abdomen and pelvis was performed 100 mL Omnipaque 350 intravenous contrast. Automated exposure control and iterative reconstruction technique were employed. The dose-length product was 829.46 mGy-cm. COMPARISON: Ultrasound 11/29/2024 FINDINGS: The visualized portions of the lung bases demonstrate mild atelectasis. No pleural effusion. The heart size is normal. No pericardial effusion. There is a small sliding hiatal hernia. The liver, pancreas, adrenal glands, and kidneys are normal. The gallbladder is normal in size. Gallbladder w all thickening is noted. There are no dilated loops of bowel. The appendix is normal. There are no pathologically enlarged lymph nodes. There is physiologic fluid in the pelvis. There is mild thoracic and lumbar spondylosis. IMPRESSION: 1. Gallbladder wall thickening, which may be seen with interstitial edema, chronic cholecystitis, or chronic liver disease. Reviewed, dictated and finalized at location E. IMPRESSION: 1. Gallbladder wall thickening, which may be seen with interstitial edema, supervisor [employer] aurea cholecystitis, or chronic liver disease.
--- NOTE | ~2024-11-29 | US_ITS ---
US abdomen limited INDICATION: Suspect gallstone. Right upper quadrant pain. PROCEDURE: Realtime right upper abdominal ultrasound. COMPARISON: No prior studies for comparison. FINDINGS: The pancreas is normal without focal mass or pancreatic ductal dilation. Liver echotexture is normal without focal mass or intrahepatic biliary dilatation. There is normal directional flow in the portal vein. The bladder is contracted limiting evaluation for gallstones. Common bile duct measures 3 mm. No sonographic Jean's sign. IMPRESSION: 1: Contracted gallbladder limits evaluation for gallstones. Reviewed, dictated and finalized at location B.
[2024-11-29 03:35] VITALS: BP 122/93; PULSE 84; RESP 18; TEMP 36.8; O2SAT 95
--- NOTE | 2024-11-29 03:46 | PC.NURSE ---
Pt states she can not urinate at this time.
[2024-11-29 03:53] LABS: Hematocrit 40.1 % (37.0-47.0); Hemoglobin 12.8 g/dL (12.0-15.0); Immature Granulocyte Percent A 0.2 % (0-0.5); Lymphocytes Absolute Auto 2.41 K/mm3 (0.9-3.2); Mean Corpuscular HGB Conc 31.9 g/dl (32-36); Mean Corpuscular Hemoglobin 29.7 pg (26-34); Mean Corpuscular Volume 93.0 fl (80-100); Nucleated Red Blood Cells Absolute Auto 0.000 K/mm3 (0.0-0.012); Nucleated Red Blood Cells Perc 0.0 % (0.0-0.2); Platelet Count Result 304 k/mm3 (150-375); Red Blood Count 4.31 M/mm3 (4.2-5.4); White Blood Count 5.6 K/mm3 (4.5-10.0)
[2024-11-29 04:09] LABS: Alanine Aminotransferase 361 U/L (6-35); Albumin Level 4.4 g/dL (3.5-5.1); Alkaline Phosphatase 101 U/L (38-126); Anion Gap 9 mmol/L (4-12); Aspartate Amino Transferase 529 U/L (14-36); Bilirubin,Total 1.0 mg/dL (0.2-1.3); Blood Urea Nitrogen 8 mg/dL (7-17); Calcium 9.3 mg/dL (8.4-10.2); Carbon Dioxide 29 mmol/L (22-30); Chloride 103 mmol/L (98-107); Estimated CRCL calculation 81 ml/min; Estimated Glomerular Filt Rate > 60; Glucose 99 mg/dL (65-110); Lipase 242 U/L (23-300); Potassium 3.7 mmol/L (3.4-5.0); Sodium 141 mmol/L (137-145); Total Protein 7.9 g/dL (6.3-8.2)
[2024-11-29] MEDS: HYDROmorphone HCL INJ (*CRX) 1 MG/ML SYR IV PUSH (04:42)
[2024-11-29] MEDS: SODIUM CHLORIDE 0.9% IV 1,000 ML 999 ML IV CONT (04:42)
[2024-11-29] MEDS: ONDANSETRON INJ 4 MG/2 ML VIAL IV PUSH (04:42)
[2024-11-29 04:43] LABS: SPREG INTERNAL CONTROL Positive
[2024-11-29 04:45] LABS: Serum Qual hCG Negative
--- NOTE | 2024-11-29 04:47 | ED.ABDPAIN ---
HPI - Abdominal Pain General Chief Complaint: Abdominal Pain <Coy Chester MD - Last Filed: 11/29/24 08:18> Stated Complaint: abd pain <Coy Chester MD - Last Filed: 11/29/24 08:18> Time Seen by Provider: 11/29/24 04:28 <Coy Chester MD - Last Filed: 11/29/24 08:18> History of Present Illness HPI narrative: 34-year-old otherwise healthy female presenting to the emergency department with nausea vomiting and right upper quadrant abdominal pain. Patient states that the symptoms have been consistent since Wednesday. Associated nausea vomiting. Pain comes in waves and spasms. No history of gallstones to her knowledge. Pain radiates towards her back as well. Denies any urinary symptoms, fever, chills. No history of kidney stones. Was otherwise in her normal state of health recently. <Coy Chester MD - Last Filed: 11/29/24 08:18> Related Data Allergies/Adverse Reactions: Allergies Allergy/AdvReac Type Severity Reaction Status Date / Time morphine Allergy Itching Verified 07/24/24 19:18 <Coy Chester MD - Last Filed: 11/29/24 08:18> Review of Systems Review of Systems: As reviewed above in HPI <Coy Chester MD - Last Filed: 11/29/24 08:18> PMFSH Past Medical History Medical History: Medical History History of hidradenitis suppurativa <Coy Chester MD - Last Filed: 11/29/24 08:18> Surgical History Surgical History: Surgical History History of hernia repair <Coy Chester MD - Last Filed: 11/29/24 08:18> Social History Social History: Social History Substance use: never Occupation/Education: occupation Additional occupation/education comments: 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 Mucous membranes moist. NECK: Supple. CHEST: [Clear to auscultation. No respiratory distress.] HEART: [Regular rate and rhythm]. No murmur heard. [Normal peripheral pulses.] ABDOMEN: Soft and nondistended, focal tenderness to palpation the right upper quadrant going towards the right flank. Positive Jean sign on exam, no overlying skin changes or rigidity, no peritonitis EXTREMITIES: Normal range of motion. [No edema.] SKIN: Warm, dry, no rash. NEURO: [No focal deficits]. Alert and oriented [x3.] PSYCH: [Normal mood and affect.] <Coy Chester MD - Last Filed: 11/29/24 08:18> Course Vital Signs Vital signs: Vital Signs Temperature 98.3 F 11/29/24 03:35 Pulse Rate 84 11/29/24 03:35 Respiratory Rate 18 11/29/24 03:35 Blood Pressure 122/93 H 11/29/24 03:35 Pulse Oximetry 95 11/29/24 03:35 Oxygen Delivery Room Air 11/29/24 03:35 Temperature 98.1 F 11/29/24 07:39 Pulse Rate 60 11/29/24 08:26 Respiratory Rate 16 11/29/24 07:37 Blood Pressure 110/80 11/29/24 08:26 Pulse Oximetry 100 11/29/24 07:37 Oxygen Delivery Room Air 11/29/24 03:35 <Coy Chester MD - Last Filed: 11/29/24 08:18> Vital Signs Temperature 98.3 F 11/29/24 03:35 Pulse Rate 84 11/29/24 03:35 Respiratory Rate 18 11/29/24 03:35 Blood Pressure 122/93 H 11/29/24 03:35 Pulse Oximetry 95 11/29/24 03:35 Oxygen Delivery Room Air 11/29/24 03:35 Temperature 98.1 F 11/29/24 07:39 Pulse Rate 60 11/29/24 08:26 Respiratory Rate 16 11/29/24 07:37 Blood Pressure 110/80 11/29/24 08:26 Pulse Oximetry 100 11/29/24 07:37 Oxygen Delivery Room Air 11/29/24 03:35 <Onesimo Barr MD - Last Filed: 11/29/24 17:56> MDM - Abdominal Pain MDM Narrative Medical decision making narrative: 34-year-old otherwise healthy female presenting to the emergency department with nausea vomiting and right upper quadrant abdominal pain. Patient states that the symptoms have been consistent since Wednesday. Associated nausea vomiting. Pain comes in waves and spasms. No history of gallstones to her knowledge. Pain radiates towards her back as well. Denies any urinary symptoms, fever, chills. No history of kidney stones. Was otherwise in her normal state of health recently. Patient has focal reproducible right upper quadrant pain with palpation and positive Jean sign. She does appear uncomfortable and retching and numerous times vomited during encounter. Hemodynamically stable. No tachycardia or fever. Blood pressure stable. Suspect gastroenteritis, cholecystitis, symptomatic cholelithiasis, kidney stone or other acute intra-abdominal process. CT scan with IV contrast of the abdomen pelvis was obtained. She was given Dilaudid and Zofran as well as a fluid bolus while basic laboratory studies, test and urinalysis ordered. LFTs are largely elevated with suspicion more pointing towards biliary pathology. Normal bilirubin. CT scan shows normal appendix, sigmoid diverticulosis, no bowel obstruction. Right upper quadrant ultrasound ordered this time and patient care signed over to morning physician pending completion of workup and final disposition based on imaging results and reassessment of patient. <Coy Chester MD - Last Filed: 11/29/24 08:18> 34-year-old otherwise healthy female presenting to the emergency department with nausea vomiting and right upper quadrant abdominal pain. Patient states that the symptoms have been consistent since Wednesday. Associated nausea vomiting. Pain comes in waves and spasms. No history of gallstones to her knowledge. Pain radiates towards her back as well. Denies any urinary symptoms, fever, chills. No history of kidney stones. Was otherwise in her normal state of health recently. Patient has focal reproducible right upper quadrant pain with palpation and positive Jean sign. She does appear uncomfortable and retching and numerous times vomited during encounter. Hemodynamically stable. No tachycardia or fever. Blood pressure stable. Suspect gastroenteritis, cholecystitis, symptomatic cholelithiasis, kidney stone or other acute intra-abdominal process. CT scan with IV contrast of the abdomen pelvis was obtained. She was given Dilaudid and Zofran as well as a fluid bolus while basic laboratory studies, test and urinalysis ordered. LFTs are largely elevated with suspicion more pointing towards biliary pathology. Normal bilirubin. CT scan shows normal appendix, sigmoid diverticulosis, no bowel obstruction. Right upper quadrant ultrasound ordered this time and patient care signed over to morning physician pending completion of workup and final disposition based on imaging results and reassessment of patient. --- On re-evaluation patient does feel improved. Patient is resting comfortably. Patient does still have some mild upper abdominal tenderness to palpation but no rebound no guarding and nonsurgical abdomen. Patient is currently afebrile no leukocytosis and hemoglobin of 12.8. Patient has a normal T bili but does have elevated AST ALT normal alk-phos and normal lipase. Patient's beta hCG was negative. UA was negative for infection. Ultrasound was ordered and showed a contracted gallbladder. Patient was up the results of the workup. Patient was advised to follow a clear liquid diet for the next few days. Patient will be provided medication for pain control. Patient will be provided outpatient follow-up was surgery. Patient states she is comfortable plan for discharge and close follow-up. Patient was well-appearing at time of discharge. Patient was also educated on reasons to return to the emergency department including fever worsening pain and inability to secure follow-up. All questions concerns were addressed <Onesimo Barr MD - Last Filed: 11/29/24 17:56> Medical Records Attestation: I reviewed the patient's medical records. <Coy Chester MD - Last Filed: 11/29/24 08:18> Lab Data Attestation: I reviewed the patient's lab results. <Coy Chester MD - Last Filed: 11/29/24 08:18> Result diagrams: 11/29/24 03:44 11/29/24 03:44 <Coy Chester MD - Last Filed: 11/29/24 08:18> Labs: Lab Results 11/29/24 11/29/24 Range/Units 03:44 06:30 WBC 5.6 (4.5-10.0) K/mm3 RBC 4.31 (4.2-5.4) M/mm3 Hgb 12.8 (12.0-15.0) g/dL Hct 40.1 (37.0-47.0) % MCV 93.0 (80-100) fl MCH 29.7 (26-34) pg MCHC 31.9 L (32-36) g/dl RDW 12.6 (11.5-14.5) % Plt Count 304 D (150-375) k/mm3 MPV 8.5 (7.4-10.4) fl Immature Gran % (Auto) 0.2 (0-0.5) % Neut % (Auto) 44.3 L (45.5-73.1) % Lymph % (Auto) 43.0 (18.3-44.2) % Cecil % (Auto) 10.0 H (2.6-8.5) % Eos % (Auto) 2.0 (0-4.4) % Baso % (Auto) 0.5 (0.2-1.2) % Lymph # (Auto) 2.41 (0.9-3.2) K/mm3 Cecil # (Auto) 0.6 (0.1-0.6) K/mm3 Eos # (Auto) 0.1 (0-0.3) K/mm3 Baso # (Auto) 0.0 (0.0-0.1) K/mm3 Abs Immat Gran (auto) 0.01 (0.00-0.031) K/mm3 Absolute Neuts (auto) 2.5 (1.3-6.7) K/mm3 Absolute Nucleated RBC 0.000 (0.0-0.012) K/mm3 Nucleated RBC % 0.0 (0.0-0.2) % Sodium 141 (137-145) mmol/L Potassium 3.7 (3.4-5.0) mmol/L Chloride 103 (98-107) mmol/L Carbon Dioxide 29 (22-30) mmol/L Anion Gap 9 (4-12) mmol/L BUN 8 (7-17) mg/dL Creatinine 0.93 (0.7-1.0) mg/dL Estim Creat Clear Calc 81 ml/min Estimated GFR > 60 (59 - ) Glucose 99 (65-110) mg/dL Calcium 9.3 (8.4-10.2) mg/dL Total Bilirubin 1.0 (0.2-1.3) mg/dL AST 529 H (14-36) U/L ALT 361 H (6-35) U/L Alkaline Phosphatase 101 (38-126) U/L Total Protein 7.9 (6.3-8.2) g/dL Albumin 4.4 (3.5-5.1) g/dL Lipase 242 (23-300) U/L Serum HCG, Qual Negative Urine Color Yellow (Yellow) Urine Appearance Clear (Clear) Urine pH 8.0 (5.0-9.0) Ur Specific [place] > 1.045 H (1.001-1.035) Urine Protein 1+ H (Negative) mg/dL Urine Glucose (UA) Negative (Negative) mg/dL Urine Ketones Negative (Negative) mg/dL Ur Blood (Man) Negative (Negative) Urine Nitrate Negative (Negative) Urine Bilirubin Negative (Negative) Urine Urobilinogen 1.0 (<2.0) mg/dL Add Ur Microanalysis Reviewed Leukocyte Esterase Rfl Negative (Negative) SHANEL/UL Urine RBC 0-2 (0-2) /hpf Urine WBC 0-5 (0-3) /hpf Ur Squamous Epith Cells Occasional (Few) /hpf Urine Bacteria 2+ H /hpf Urine Casts 0-2 <Coy Chester MD - Last Filed: 11/29/24 08:18> Lab Results 11/29/24 11/29/24 Range/Units 03:44 06:30 WBC 5.6 (4.5-10.0) K/mm3 RBC 4.31 (4.2-5.4) M/mm3 Hgb 12.8 (12.0-15.0) g/dL Hct 40.1 (37.0-47.0) % MCV 93.0 (80-100) fl MCH 29.7 (26-34) pg MCHC 31.9 L (32-36) g/dl RDW 12.6 (11.5-14.5) % Plt Count 304 D (150-375) k/mm3 MPV 8.5 (7.4-10.4) fl Immature Gran % (Auto) 0.2 (0-0.5) % Neut % (Auto) 44.3 L (45.5-73.1) % Lymph % (Auto) 43.0 (18.3-44.2) % Cecil % (Auto) 10.0 H (2.6-8.5) % Eos % (Auto) 2.0 (0-4.4) % Baso % (Auto) 0.5 (0.2-1.2) % Lymph # (Auto) 2.41 (0.9-3.2) K/mm3 Cecil # (Auto) 0.6 (0.1-0.6) K/mm3 Eos # (Auto) 0.1 (0-0.3) K/mm3 Baso # (Auto) 0.0 (0.0-0.1) K/mm3 Abs Immat Gran (auto) 0.01 (0.00-0.031) K/mm3 Absolute Neuts (auto) 2.5 (1.3-6.7) K/mm3 Absolute Nucleated RBC 0.000 (0.0-0.012) K/mm3 Nucleated RBC % 0.0 (0.0-0.2) % Sodium 141 (137-145) mmol/L Potassium 3.7 (3.4-5.0) mmol/L Chloride 103 (98-107) mmol/L Carbon Dioxide 29 (22-30) mmol/L Anion Gap 9 (4-12) mmol/L BUN 8 (7-17) mg/dL Creatinine 0.93 (0.7-1.0) mg/dL Estim Creat Clear Calc 81 ml/min Estimated GFR > 60 (59 - ) Glucose 99 (65-110) mg/dL Calcium 9.3 (8.4-10.2) mg/dL Total Bilirubin 1.0 (0.2-1.3) mg/dL AST 529 H (14-36) U/L ALT 361 H (6-35) U/L Alkaline Phosphatase 101 (38-126) U/L Total Protein 7.9 (6.3-8.2) g/dL Albumin 4.4 (3.5-5.1) g/dL Lipase 242 (23-300) U/L Serum HCG, Qual Negative Urine Color Yellow (Yellow) Urine Appearance Clear (Clear) Urine pH 8.0 (5.0-9.0) Ur Specific [place] > 1.045 H (1.001-1.035) Urine Protein 1+ H (Negative) mg/dL Urine Glucose (UA) Negative (Negative) mg/dL Urine Ketones Negative (Negative) mg/dL Ur Blood (Man) Negative (Negative) Urine Nitrate Negative (Negative) Urine Bilirubin Negative (Negative) Urine Urobilinogen 1.0 (<2.0) mg/dL Add Ur Microanalysis Reviewed Leukocyte Esterase Rfl Negative (Negative) SHANEL/UL Urine RBC 0-2 (0-2) /hpf Urine WBC 0-5 (0-3) /hpf Ur Squamous Epith Cells Occasional (Few) /hpf Urine Bacteria 2+ H /hpf Urine Casts 0-2 <Onesimo Barr MD - Last Filed: 11/29/24 17:56> Imaging Data Attestation: I personally reviewed and interpreted this imaging study as follows: <Coy Chester MD - Last Filed: 11/29/24 08:18> My impression: No obstruction, normal appendix, dominant right ovary follicle <Coy Chester MD - Last Filed: 11/29/24 08:18> Radiologist's impression: ITS Impressions Abdomen Ultrasound 11/29/24 07:55 IMPRESSION: 1: Contracted gallbladder limits evaluation for gallstones. Abdomen/Pelvis CT 11/29/24 08:14 IMPRESSION: 1. Gallbladder wall thickening, which may be seen with interstitial edema, chronic cholecystitis, or chronic liver disease. <Coy Chester MD - Last Filed: 11/29/24 08:18> ITS Impressions Abdomen Ultrasound 11/29/24 07:55 IMPRESSION: 1: Contracted gallbladder limits evaluation for gallstones. Abdomen/Pelvis CT 11/29/24 08:14 IMPRESSION: 1. Gallbladder wall thickening, which may be seen with interstitial edema, chronic cholecystitis, or chronic liver disease. <Onesimo Barr MD - Last Filed: 11/29/24 17:56> Discharge Plan Discharge Clinical Impression: Right sided abdominal pain, Nausea & vomiting <Coy Chester MD - Last Filed: 11/29/24 08:18> Patient Disposition: Home <Coy Chester MD - Last Filed: 11/29/24 08:18> Condition: Stable <Coy Chester MD - Last Filed: 11/29/24 08:18> Instructions: Antibiotic Form, Biliary Colic (ED), Low Fat Diet (ED), Clear Liquid Diet (ED) <Coy Chester MD - Last Filed: 11/29/24 08:18> Additional Instructions: Clear liquid diet for the next 1-3 days. Advance to a low-fat diet as tolerated. Zofran as needed for nausea control. Ibuprofen for pain control [place] as needed for additional pain control. Have close follow-up with surgery. If you have any worsening symptoms then please call or return to the emergency department. <Coy Chester MD - Last Filed: 11/29/24 08:18> Patient Language: Yakut <Coy Chester MD - Last Filed: 11/29/24 08:18> Prescriptions: New hydrocodone-acetaminophen 5-325 mg tablet 1 tablet PO Q12H PRN (Reason: pain) Qty: 14 0RF ondansetron 4 mg tablet,disintegrating 4 mg PO Q8H PRN (Reason: nausea and vomiting) Qty: 14 0RF No Action doxycycline hyclate 100 mg tablet 100 mg PO BID 7 Days Qty: 14 0RF benzonatate 200 mg capsule 200 mg PO TID PRN (Reason: cough) Qty: 20 0RF ibuprofen 600 mg tablet 600 mg PO TID PRN (Reason: pain) Qty: 30 0RF acetaminophen 500 mg capsule 1,000 mg PO Q6H PRN (Reason: pain) Qty: 30 0RF cephalexin 500 mg capsule 500 mg PO Q8H 5 Days Qty: 15 0RF sulfamethoxazole-trimethoprim 800-160 mg tablet 1 tablet PO Q12H 5 Days Qty: 10 0RF <Coy Chester MD - Last Filed: 11/29/24 08:18> Follow-up/Referrals: Jimbo,Oumou Rogers [Primary Care Provider] Enrique Bianchi MD [Physician, General Surgery] <Coy Chester MD - Last Filed: 11/29/24 08:18>
[2024-11-29 06:33] VITALS: BP 122/87; PULSE 79; RESP 18; O2SAT 100
[2024-11-29] MEDS: HYDROmorphone HCL INJ (*CRX) 1 MG/ML SYR 0.5 MG IV PUSH (07:00)
[2024-11-29 07:02] LABS: Add Urine Microscopic? YES; Appearance Urine Clear (Clear); Glucose Urine UA Negative (Negative); Leukocyte Esterase Ur Negative LEU/UL (Negative); Need Manual Microscopic Reviewed; Nitrate Urine Negative (Negative); Non Pathogenic Casts 0-2; Specific Grav Ur > 1.045 (1.001-1.035)
[2024-11-29 07:37] VITALS: BP 109/62; PULSE 60; RESP 16; TEMP 36.7; O2SAT 100
[2024-11-29 07:39] VITALS: TEMP 36.7
[2024-11-29 08:26] VITALS: BP 110/80; PULSE 60
== END 2024-11-29 08:29 | disposition home or self-care (01) ==
PROVIDERS: Emergency Provider Student in an Organized Health Care Education/Training Program; PCP Internal Medicine Infectious Disease
DX: R10.11 Right upper quadrant pain (principal); R11.2 Nausea with vomiting, unspecified; R93.2 Abnormal findings on diagnostic imaging of liver and biliary tract
CPT/HCPCS: 36415; 74177; 76705; 80053; 81001; 83690; 84703; 85025; 96361; 96374; 96375; 96376; 99284; J1171; J2405; J7030; Q9967

== ENCOUNTER 2024-12-05 11:05 | Outpatient (CLI) | payer OTHER, SELFPAY ==
--- OUTSIDE RECORDS SUMMARY | 1999-03-19 05:45 | XMS_ITS | Continuity of Care Document ---
Author Organization [facility] Address [address] [place] [address] Phone Care Team Providers Care Press Assistant Name Role Phone Henry Zavala Unavailable Unavailable Advance Directives Directive Yes / No Effective Date File Name No Information Encounters Encounter Description Practice Location Reason(s) For Visit Diagnoses Date Provider Providers Copied on Encounter [facility], [address], [place], [place], [address], [place] tel:[phone] SEC [facility] No Information 9-200 0 Sally Figueroa. [address] [facility] , [address], [place], [address], [place]. tel:[phone] Family History Family Member Type Diagnosis Age At Onset No Information Payers Payer name Insurance type Covered green party ID Authoriza tion(s) Medicaid [facility] [id number] Social History Type Description Quantity Date Captured [...]
--- OUTSIDE RECORDS SUMMARY | 2014-10-19 11:33 | XMS_ITS | Continuity of Care Document ---
Author Organization [facility] Address [address] [place] [address] Phone Care Team Providers Care Teacher Physically Impaired Name Role Phone Unavailable Unavailable Unavailable Medications [...] Diagnoses Date Provider Providers Copied on Encounter [facility] , [address], [place], [place], [address], tel:[phone] [facility] No Information No Information [facility] , [address], [place], [place], [address], tel:[phone] [facility] examination or test, positive resultAbsence of menstruation Nurse Registered. [address], [place], [place], [address], . tel:[phone] Referring Provider: Registered Nurse, [address], [place], [address]. tel:[phone] Family History Family Member Type Diagnosis Age At Onset No Information Payers Payer name Insurance type Covered alliance party ID Authoriza tion(s) No Information Social History Type Description Quantity Date Captured Comments Sex Female Smoking Status No Information Sexual Orientation Straight or heterosexual Apr Chief Complaint And Reason For Visit No Information Reason For Referral Reason For Referral No Information Plan Of Treatment Date Type Action Status Future Order: Radiology Order OB US < 14 Weeks, Single Fetus ([id number]), Ordered on: Ordered History Of Present Illness Encounter Date Complaint History Of Prese nt Illness No Information Functional Status Date Functional Assessmen t No Information Instructions Date Instruction Additional Infor mation No Information Assessments Type Assessment Date No Information Patient Care Teams Name Effective Dates (start - stop) Status Members No Information
[2024-12-05 11:33] LABS: Hematocrit 41.0 % (37.0-47.0); Hemoglobin 13.0 g/dL (12.0-15.0); Immature Granulocyte Percent A 0.4 % (0-0.5); Lymphocytes Absolute Auto 1.71 K/mm3 (0.9-3.2); Mean Corpuscular HGB Conc 31.7 g/dl (32-36); Mean Corpuscular Hemoglobin 29.9 pg (26-34); Mean Corpuscular Volume 94.3 fl (80-100); Nucleated Red Blood Cells Absolute Auto 0.000 K/mm3 (0.0-0.012); Nucleated Red Blood Cells Perc 0.0 % (0.0-0.2); Platelet Count Result 288 k/mm3 (150-375); Red Blood Count 4.35 M/mm3 (4.2-5.4); White Blood Count 4.8 K/mm3 (4.5-10.0)
[2024-12-05 11:52] LABS: Alanine Aminotransferase 235 U/L (6-35); Albumin Level 4.4 g/dL (3.5-5.1); Alkaline Phosphatase 93 U/L (38-126); Anion Gap 8 mmol/L (4-12); Aspartate Amino Transferase 68 U/L (14-36); Bilirubin,Total 0.4 mg/dL (0.2-1.3); Blood Urea Nitrogen 7 mg/dL (7-17); Calcium 9.0 mg/dL (8.4-10.2); Carbon Dioxide 26 mmol/L (22-30); Chloride 103 mmol/L (98-107); Estimated Glomerular Filt Rate > 60; Glucose 86 mg/dL (65-110); Potassium 3.9 mmol/L (3.4-5.0); Sodium 137 mmol/L (137-145); Total Protein 8.0 g/dL (6.3-8.2)
--- OUTSIDE RECORDS SUMMARY | 2024-12-05 12:20 | XMS_ITS | Clinical Summary ---
Author Organization [facility] Address [address] [place] [address] Care Team Providers Care Classification Analyst Name Role Phone No, Physician Primary Care Provider [phone] Allergies No known active allergies Medications doxycycline [...] on file Legal Sex Female 10:07 AM [employer] Gender Identity Not on file Sexual Orientation Not on file Obstetrics History Last Filed Vital Signs Vital Sign Reading Time Taken Comments Blood Pressure 125/96 04/30/2023 11:01 AM [employer] Pulse 74 04/30/2023 11:01 AM [employer] Temperature 36.4 C (97.5 F) 04/30/2023 11:01 AM [employer] Respiratory Rate 16 04/30/2023 11:01 AM [employer] Oxygen Saturation 100% 04/30/2023 11:01 AM [employer] Inhaled Oxygen Concentration - - Weight 83 kg (183 lb) 04/30/2023 11:01 AM [employer] Height 157.5 cm (5' 2) 04/30/2023 11:01 AM [employer] Body Mass Index 33.47 04/30/2023 11:01 AM [employer] Plan of Treatment Health Maintenance Due Date Last Done Comments Cervical Cancer Screening 1992 Depression Screening 1992 Hepatitis C Screening 1992 DTaP/Tdap/Td Vaccine (1 - Tdap) 09/13/2003 Varicella Vaccines (1 of 2 - 13+ 2-dose series) 2005 Hepatitis B Screening 2010 Regular Well Visit/Exam 18-64 2010 HPV Vaccines (1 - 3-dose SCD M series) 09/13/2019 Influenza Vaccine (#1) 2024 Pneumococcal vaccine <65 Aged Out No longer eligible based on patient's age to complete this topic Insurance [facility] Care Teams Classification Analyst Relationship Specialty Start Date End Date No, Physician PCP - General 04/29/23
--- OUTSIDE RECORDS SUMMARY | 2024-12-05 12:21 | XMS_ITS | Data Portability ---
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 Lab urinalysi s, dipstick 2019 020 cindy In-Office Order, Internal Use Only DO Not Attach Compendium DO Not Attach Compendium, Do Not Delete/merge, [id number] 0 18:20:03 pap, IG + HPV, cervical 2019 020 [facility], [address] [place] [address], [address], [place], [address], 0 10:36:52 bacterial vaginosis panel, vaginal 2019 020 JESSICA [facility] (Centralized [facility] Ordering - All Locations), Patient Can Go To The Location Of Their Choice, [id number] 0 06:11:23 culture, vaginal/r ectal, streptoco ccus group B 2019 020 JESSICA [facility] (Centralized Electronic Ordering - All Locations), Patient Can Go To The Location Of Their Choice, [id number] 0 06:11:23 Referral None recorded. Procedures None recorded. Surgeries None recorded. Imaging None recorded. Medication Orders Medrol (Jabier) 4 mg tablets in a dose pack 2020 021 [facility] #[id number], [address] [place] [address], [id number], 1 13:05:36 gabapenti n 300 mg capsule [address] [facility] #97597, [address] [place] [address], [id number], 1 08:25:12 ondansetr on 8 mg disintegr ating tablet 2019 [facility] #78785, [address] [place] [address], [id number], 1 12:14:58 cephalexi n 500 mg capsule [address] [facility] #57984, [address] [place] [address], [id number], 1 14:14:15 ibuprofen 800 mg tablet [address] [facility] #40268, [address] [place] [address], [id number], 1 14:14:08 multivita min tablet 2019 020 [facility] #22933, [address] [place], [place], [id number], 0 08:41:08 Calcium with Vitamin D 600 mg-10 mcg (400 unit) tablet 2019 [facility] #11767, [address] [place], [place], [id number], 0 08:41:04 fluconazo le 150 mg tablet 2019 020 [facility] #63144, [address] [place], [place], [id number], 0 15:33:22 nystatin 100,000 unit/gram topical cream 2019 020 [facility] #08062, [address] [place], [place], [id number], 0 15:33:54 Nuvessa 1.3 % (65 mg/5 gram) vaginal gel 2019 020 [facility] #[id number] [place], [id number], 0 08:39:13 fluconazo le 150 mg tablet 2018 019 [email or web address] Not available 0 15:33:22 chlorhexi dine gluconate 4 % topical liquid 2018 019 [email or web address] Not available 0 15:23:21 Clindagel 1 % topical gel, once daily 2018 019 [email or web address] Not available 0 15:23:18 Patient TargetsNo targets recorded. Patient Instructions Encounter Date Encounter Id Patient Instructions Last Modified By Organization Details Last Modified Time 08/29/2018 [id number] I have reviewed the provider's note and I agree with the documented assessment and plan. HLF [email or web address] Not available 08/29/2018 14:52:34 08/16/2019 [id number] vaginal yeast infection: care instructions [email or web address] Not available 08/16/2019 15:38:30 Reason for Referral None Reported. Results Created Date Observation Date Name Description Value Unit Range Abnormal Flag Note LastModifiedBy Organization Detail LastModifiedTime 08/21/19 20 08/24/2019 pap, IG + HPV, cervi césar HPV aptima Negati ve negati ve This nucle ic acid ampli ficat ion test detec ts fourt een high- risk HPV types (16,1 8,31, 33,35 ,39,4 5,51, 52,56 ,58,5 9,66, 68) witho ut diffe renti ation . Not Available [facility] ([facility]) [address], [place], [place], [address], 08/25/2019 10:36:52 08/21/19 20 08/25/2019 pap, IG + HPV, cervi césar diagnosis: Dasha t NEGAT RENÉ FOR INTRA EPITH ELIAL LESIO N OR POPEYE DORADO . Not Available [facility] ([facility]) [address] [place], [address], 08/25/2019 10:36:52 08/21/19 20 08/25/2019 pap, IG + HPV, cervi césar specimen adequacy: Dasha t Satis facto ry for evalu ation . Endoc ervic al and/o r squam ous metap lasti c cells (endo cervi césar compo nent) are prese nt. Not Available [facility] ([facility]) [address], [place], [place], [address], 08/25/2019 10:36:52 08/21/19 20 08/25/2019 pap, IG + HPV, cervi césar clinician provided ICD10: Dasha lund Z01.4 19 Not Available [facility] ([facility]) [address] [place], [address], 08/25/2019 10:36:52 08/21/19 20 08/25/2019 pap, IG + HPV, cervi césar performed by: Dasha Ventura Cytot mp lund Not Available [facility] ([facility]) [address] [place], [address], 08/25/2019 10:36:52 08/21/19 20 08/25/2019 pap, IG + HPV, cervi césar . . Not Available [facility] ([facility]) [address] [place], [address], 08/25/2019 10:36:52 08/21/19 20 08/25/2019 pap, IG + HPV, cervi césar note: Commen t The Pap smear is a scree marin test desig miriam to aid in the detec tion of jatinder ligna nt and malig nant condi tions of the uteri ne cervi x. It is not a diagn ostic proce dure and shoul d not be used as the sole means of detec ting cervi césar cance r. Both false -posi tive and false -nega tive repor ts do occur . Not Available [facility] ([facility]) [address] [place], [address], 08/25/2019 10:36:52 08/21/19 20 08/25/2019 pap, IG + HPV, cervi césar test methodology: Dasha t This liqui d based ThinP rep(R ) pap test was scree miriam with the use of an image guide d systmilton m. Not Available [facility] ([facility]) [address] [place], [address], 08/25/2019 10:36:52 08/21/19 20 08/24/2019 bacte rial vagin osis panel , vagin al trich vag by ISABEL Negati ve negati ve Not Available [facility] ([facility]) [address] [place], [address], 08/29/2019 06:11:23 08/21/19 20 08/24/2019 bacte rial vagin osis panel , vagin al chlamydia trachomatis, ISABEL Negati ve negati ve Not Available [facility] ([facility]) [address] [place], [address], 08/29/2019 06:11:23 08/21/19 20 08/24/2019 bacte rial vagin osis panel , vagin al neisseria gonorrhoeae, ISABEL Negati ve negati ve Not Available [facility] ([facility]) [address] [place], [address], 08/29/2019 06:11:23 08/21/19 20 08/28/2019 bacte rial vagin osis panel , vagin al hsv 1 ISABEL Negati ve negati ve Not Available [facility] ([facility]) [address] [place], [address], 08/29/2019 06:11:23 08/21/19 20 08/28/2019 bacte rial vagin osis panel , vagin al hsv 2 ISABEL Negati ve negati ve Not Available [facility] ([facility]) [address] [place], [address], 08/29/2019 06:11:23 08/21/19 20 08/29/2019 bacte rial vagin osis panel , vagin al atopobium vaginae High - 2 score abnormal Not Available [facility] ([facility]) [address] [place], [address], 08/29/2019 06:11:23 08/21/1908/29/2019 bacte rial vagin osis panel , vagin al bvab 2 Modera te - 1 score Not Available [facility] ([facility]) [address] [place], [address], 08/29/2019 06:11:23 08/21/19 20 08/29/2019 bacte rial vagin osis panel , vagin al megasphaera 1 High - 2 score abnormal Calcu late total score by leo g the 3 indiv idual bacte rial vagin osis (BV) marke r score s toget her. Total score is inter prete d as follo ws: Total score 0-1: Indic ates the absen ce of BV. Total score 2: Indet ermin ate for BV. Addit ional clini césar data shoul d be evalu ated to estab raj a diagn osis. Total score 3-6: Indic ates the prese nce of BV. This test was devel oped and its perfo rmanc e rell cteri stics deter mined by [facility]. It has not been clear ed or appro marjorie by the Food and Drug Admin istra tion. The FDA has deter mined that such clear ance or appro paulo is not neces miranda. Not Available [facility] ([facility]) [address], [place], [place], [address], 08/29/2019 06:11:23 08/21/19 20 08/29/2019 bacte rial vagin osis panel , vagin al luz albicans, ISABEL Negati ve negati ve Not Available [facility] ([facility]) [address] [place], [address], 08/29/2019 06:11:23 08/21/19 20 08/29/2019 bacte rial vagin osis panel , vagin al luz glabrata, ISABEL Negati ve negati ve Not Available [facility] ([facility]) [address], [place], [place], [address], 08/29/2019 06:11:23 08/21/19 20 08/24/2019 cultu re, vagin al/re ctal, strep tococ cus group B strep gp B ISABEL Negati ve negati ve Cente rs for Disea se Contr ol and Preve ntion (CDC) and Adalbertoeri can Congr ess of Obste trici ans and Gynec ologi sts (ACOG ) guide lines for preve ntion of perin atal group B strep tococ césar (GBS) disea se speci fy co-co llect ion of a vagin al and recta l swab speci men to maxim ize sensi tivit y of GBS detec tion. Per the CDC and ACOG, swabb ing both the lower vagin a and rectu m subst antia lly incre ases the yield of detec tion jose martin red with sampl ing the vagin a alone . Penic illin G, ampic illin , or cefaz augustus are indic ated for intra partu m proph ylaxi s of perin atal GBS colon izati on. Refle x susce ptibi lity testi ng shoul d be perfo rmed prior to use of clind amyci n only on GBS isola tasha from penic illin -fam rgic women who are consi dered a high risk for anaph ylaxi s. Treat ment with vanco mycin witho ut addit ional testi ng is warra nted if resis tance to clind amyci n is noted . Not Available [facility] ([facility]) [address], [place], [place], [address], 08/29/2019 06:11:23 08/21/1908/21/2019 urina lysis , dipst ick Leukocytes Small Not Available In-Offi ce Order Internal Use Only DO Not Attach Compendium DO Not Attach Compendium, Do Not Delete/merge, 08/21/2019 15:36:46 08/21/1908/21/2019 urina lysis , dipst ick Nitrite negati ve Not Available In-Office Order Internal Use Only DO Not Attach Compendium DO Not Attach Compendium, Do Not Delete/merge, 08/21/2019 15:36:46 08/21/1908/21/2019 urina lysis , dipst ick Urobilinogen .2 Not Available In-Of fice Order Internal Use Only DO Not Attach Compendium DO Not Attach Compendium, Do Not Delete/merge, 08/21/2019 15:36:46 08/21/19 20 08/21/2019 urina lysis , dipst ick Protein Negati ve Not Available In-Office Order Internal Use Only DO Not Attach Compendium DO Not Attach Compendium, Do Not Delete/merge, 08/21/2019 15:36:46 08/21/1908/21/2019 urina lysis , dipst ick pH 8.5 Not Available In-Office Order Internal Use Only DO Not Attach Compendium DO Not Attach Compendium, Do Not Delete/merge, 08/21/2019 15:36:46 08/21/1908/21/2019 urina lysis , dipst ick Blood Negati ve Not Available In-Office Order Internal Use Only DO Not Attach Compendium DO Not Attach Compendium, Do Not Delete/merge, [id number] 08/21/2019 15:36:46 08/21/19 20 08/21/2019 urina lysis , dipst ick Specific Ventura 1.025 Not Available In-Off ice Order Internal Use Only DO Not Attach Compendium DO Not Attach Compendium, Do Not Delete/merge, [id number] 08/21/2019 15:36:46 08/21/19 20 08/21/2019 urina lysis , dipst ick Ketone Negati ve Not Available In-Office Order Internal Use Only DO Not Attach Compendium DO Not Attach Compendium, Do Not Delete/merge, [id number] 08/21/2019 15:36:46 08/21/19 20 08/21/2019 urina lysis , dipst ick Bilirubin Negati ve Not Available In-Office Order Internal Use Only DO Not Attach Compendium DO Not Attach Compendium, Do Not Delete/merge, [id number] 08/21/2019 15:36:46 08/21/19 20 08/21/2019 urina lysis , dipst ick Glucose Negati ve Not Available In-Office Order Internal Use Only DO Not Attach Compendium DO Not Attach Compendium, Do Not Delete/merge, [id number] 08/21/2019 15:36:46 09/02/19 25 09/01/2024 XR, chest No observ ation record ed. [place] [address], [place], [address], 09/04/2024 08:43:09 Result Notes None recorded. Problems Name Problem SNOMED Code Status Onset Date Resolution Date Notes Provider Name and Address Organization Details Recorded Time Streptoc occal sore throat 25436296 Completed 201608/29/2018 FAIZAN CARNES Attn: Jigar forrest,[address] [place], [address], [facility] 9 11:58:36 Chlamydi al infectio n 290107200 Completed 201608/29/2018 FAIZAN CARNES Attn: Jigar forrest[address] [facility] [place], [address] [place] [address] 2, [place] - [facility] 9 11:58:33 Bacteria l vaginosi s 053216363 Completed 201903/25/2020 FAIZAN CARNES Attn: Jigar forrest,[address] [facility], [place], [place], [address] [place] [address] 2, [place] - [facility] 1 14:14:01 Hidraden itis suppurat jael 81634707 Active 2019 FAIZAN CARNES Attn: Jigar forrest,[address] [facility], [place], [place], [address] [place] [address] 2, [place] - [facility] 0 14:44:56 Abscess of axilla 16941753 Active [address] Kamara, drained in the ER. Drainage and excision of bIlateral axillary abscesses in the OR on 09/28/2019 . FAIZAN CARNES Attn: Jigar lon,[address] [facility], [place], [place], [address] [place] [address] 2, [place] - [facility] 0 08:46:37 Hypokale tom 10019333 Active 2019 FAIZAN CARNES Attn: Jigar forrest,[address] [place], [place], [address] [place] [address] 2, [place] - [facility] 0 15:58:49 Leukopen ia 06230377 Active 2019 FAIZAN CARNES Attn: Jigar forrest,[address] [place], [place], [address] [place] [address] 2, [place] [facility] 0 15:58:54 Liver enzymes level above referenc e range 788319820 Active 2019 FAIZAN CARNES Attn: Jigar forrest,[address] [place], [place], [address] [place] [address] 2, [place] - [facility] 0 15:59:03 Notes:Last known vaccine was the flu shot in 2016. Problem Notes None recorded. Procedures Surgical History Date Name Laterality Status Provider Name and Address Organization Details Recorded Time 0 incision and drainage of abscess completed FAIZAN CARNES Attn: Accounting,[address] , [place], [address], [facility] 10/06/2019 08:47:23 0 Control Implant Removal completed Jason Coleman [facility] 08/21/2019 17:51:26 0 Date of Last Pap Smear completed Leslie Raphael MA [facility] 08/21/2019 15:35:46 7 Control Implant Insertion completed Aaliyah Shepard MA PA - [facility] 06/23/2016 16:53:26 I&d abscess simple/single completed Rox Torres MA PA - [facility] 08/29/2018 11:15:35 Imaging Results None recorded. Procedure Notes None recorded. Medical Equipment None Reported. Allergies Allergen ID Allergen Name Allergen Category Reaction Reaction Severity Criticality Documentation Date Start Date Code Code System Note Provider Name and Address Organization Details Recorded Time 687391 latex environme nt,medica tion rash moderate Not available 08/16/2019 82536 91 RxNorm yeast infec tion Rox Swann MA null, [place] - [facility] 0 15:22:57 Medications Name Sig Start Date Stop Date Status Note LastModified by Organization Details LastModified Time multivitami n tablet Take 1 tablet every day by oral route. 12/20 completed Not Available Not Available Not Available cyclobenzap rine 10 mg tablet PLEASE SEE ATTACHED FOR DETAILED DIRECTION S active Not Available Not Available No t Available amoxicillin 500 mg capsule TAKE 1 CAPSULE BY MOUTH TWICE A DAY FOR 10 DAYS active Not Available Not Available No t Available doxycycline hyclate 100 mg capsule TAKE 2 CAPSULES BY MOUTH FOR THE 1ST DOSE. THEN TAKE 1 CAPSULE TWICE A DAY FOR 10 DAYS active Not Available Not Available No t Available cetirizine 10 mg tablet Take 1 tablet every day by oral route. 08/29 completed Not Available Not Available Not Available azithromyci n 250 mg tablet TAKE 2 TABLETS (500 MG) BY ORAL ROUTE ONCE DAILY FOR 1 DAY THEN 1 TABLET (250 MG) BY ORAL ROUTE ONCE DAILY FOR 4 DAYS 08/29 completed Not Available Not Available Not Available ibuprofen 800 mg tablet Take 1 tablet 3 times a day by oral route as needed for 10 days. 03/25 completed Not Available Not Available Not Available fluconazole 150 mg tablet Take 1 tablet by oral route as directed for 1 day. 08/20 completed Not Available Not Available Not Available hydrocodone 5 mg-acetamin ophen 325 mg tablet 08/29 completed Not Available Not Available Not Available metronidazo le 0.75 % (37.5 mg/5 gram) vaginal gel Insert 1 applicato rful every day by vaginal route at bedtime for 5 days. active Not Available Not Available No t Available ondansetron HCl 4 mg tablet 06/08 completed Not Available Not Available Not Available prednisone 20 mg tablet TAKE 2 TABLETS BY MOUTH ONCE DAILY FOR 2 DAYS, THEN 1 TAB DAILY FOR 2 DAYS active Not Available Not Available No t Available spironolact one 100 mg tablet Take 1 tablet twice a day by oral route. 08/29 completed Not Available Not Available Not Available terconazole 0.8 % vaginal cream 06/08 completed Not Available Not Available Not Available penicillin V potassium 500 mg tablet Take 1 tablet every 8 hours by oral route for 10 days. 08/29 completed Not Available Not Available Not Available acetaminoph en 300 mg-codeine 15 mg tablet TAKE 1 TABLET BY MOUTH EVERY 4 HOURS WITH FOOD NEEDED FOR PAIN NOT RELIEVED BY NAPROXEN ALONE active Not Available Not Available No t Available metronidazo le 500 mg tablet Take 1 tablet twice a day by oral route for 7 days. 08/29 completed Not Available Not Available Not Available cimetidine 800 mg tablet Take 1 tablet every day by oral route. 08/29 completed Not Available Not Available Not Available ciprofloxac in 500 mg tablet 06/08 completed Not Available Not Available Not Available sulfamethox azole 800 mg-trimetho prim 160 mg tablet 08/29 completed Not Available Not Available Not Available triamcinolo ne acetonide 0.1 % topical cream APPLY AND RUB IN A THIN FILM TO AFFECTED AREAS TWICE A DAY(AM AND PM) active Not Available Not Available No t Available acyclovir 800 mg tablet Take 1 tablet 3 times a day by oral route for 7 days. 06/08 completed Not Available Not Available Not Available ondansetron 8 mg disintegrat ing tablet Place 1 tablet 3 times a day by transling ual route as needed for 5 days. 03/28 completed Not Available Not Available Not Available amoxicillin 875 mg tablet Take 1 tablet twice a day by oral route for 10 days. 08/29 completed Not Available Not Available Not Available prednisolon e acetate 1 % eye drops,suspe nsion 06/08 completed Not Available Not Available Not Available clindamycin 1 % topical gel APPLY AND GENTLY MASSAGE INTO AFFECTED AREA(S) TWICE DAILY active Not Available Not Available No t Available gentamicin 0.3 % eye drops 06/08 completed Not Available Not Available Not Available nifedipine 10 mg capsule 06/08 completed Not Available Not Available Not Available benzonatate 100 mg capsule TAKE 1 TO 2 CAPSULES BY MOUTH 3 TIMES DAILY FOR 5 DAYS NEEDED FOR COUGH active Not Available Not Available No t Available cephalexin 500 mg capsule TAKE 1 CAPSULE BY MOUTH TWICE A DAY FOR 7 DAYS active Not Available Not Available No t Available nystatin 100,000 unit/gram topical cream APPLY TO THE AFFECTED AREA(S) BY TOPICAL ROUTE 2 TIMES PER DAY 08/20 completed Not Available Not Available Not Available gabapentin 300 mg capsule TAKE 1 CAPSULE BY MOUTH EVERY DAY IN THE EVENING active Not Available Not Available No t Available Clindagel 1 % topical gel, once daily Apply 1 applicati on every day by topical route as directed for 30 days. 08/15 completed Not Available Not Available Not Available methylpredn isolone 4 mg tablets in a dose pack TAKE 6 TABLETS ON DAY 1 DIRECTED ON PACKAGE AND DECREASE BY 1 TAB EACH DAY FOR A TOTAL OF 6 DAYS active Not Available Not Available No t Available Vitamin D2 1,250 mcg (50,000 unit) capsule 06/08 completed Not Available Not Available Not Available fluticasone propionate 50 mcg/actuati on nasal spray,suspe nsion [place] 1 spray every day by intranasa l route. 08/29 completed Not Available Not Available Not Available sertraline 50 mg tablet 06/08 completed Not Available Not Available Not Available medroxyprog esterone 150 mg/mL intramuscul ar suspension INJECT INTRAMUSC ULARLY EVERY 3 MONTHS 08/29 completed Not Available Not Available Not Available doxycycline hyclate 100 mg tablet TAKE 1 TABLET BY MOUTH TWICE A DAY FOR 1 WEEK active Not Available Not Available No t Available chlorhexidi ne gluconate 4 % topical liquid Apply 1 applicati on every week by topical route as directed for 30 days. 08/15 completed Not Available Not Available Not Available naproxen 500 mg tablet TAKE 1 TABLET BY MOUTH TWICE A DAY WITH MEALS DIRECTED TO REDUCE PAIN AND SWELLING active Not Available Not Available No t Available azithromyci n 1 gram oral packet Take 1 g by oral route as directed for 1 day. 06/08 completed Not Available Not Available Not Available clindamycin 1 % lotion APPLY TO AFFECTED AREA TWICE A DAY DIRECTED TO LEFT ARM PIT active Not Available Not Available No t Available azithromyci n 500 mg tablet 06/08 completed Not Available Not Available Not Available nitrofurant oin monohydrate /macrocryst als 100 mg capsule Take 1 capsule every 12 hours by oral route for 10 days. 08/29 completed Not Available Not Available Not Available Calcium with Vitamin D 600 mg-10 mcg (400 unit) tablet Take 1 tablet twice a day by oral route. 12/20 completed Not Available Not Available Not Available Lo Loestrin Fe 1 mg-10 mcg (24)/10 mcg (2) tablet Take 1 tablet every day by oral route. 08/29 completed Not Available Not Available Not Available Viibryd 40 mg tablet Take 1 tablet every day by oral route. 08/29 completed Not Available Not Available Not Available Nexplanon 68 mg subdermal implant Inject 1 implant by subcutane ous route. 08/20 completed Not Available Not Available Not Available calcium 600 mg (as carbonate)- vitamin D3 20 mcg (800 unit) tablet Take 1 tablet twice a day by oral route. 08/29 completed Not Available Not Available Not Available Xulane 150 mcg-35 mcg/24 hr transdermal patch APPLY 1 PATCH WEEKLY FOR 3 WEEKS, THEN REMOVE FOR 1 WEEK. active Not Available Not Available No t Available Nuvessa 1.3 % (65 mg/5 gram) vaginal gel Insert 1 applicato rful by vaginal route. 12/20 completed Not Available Not Available Not Available Vitals Date Recorded Body height Provider Name an d Address Organization Details Last Updated DateTime 03/28/2020 160.02 cm Rox Torres MA [facility] 2020 12:14:49 Date Recorded Body height Body mass index (BMI) Body weight Provider Name and Address Organization Details Last Updated DateTime 08/16/2019 160.02 cm 37.4 kg/m2 73568.99 g Rox Swann MA [facility] 08/16/2019 15:17:56 Date Recorded Body height Body mass index (BMI) Body weight Systolic And Diastolic Provider Name and Address Organization Details Last Updated DateTime 08/21/2019 160.02 cm 37.2 kg/m2 62027.4 g 122/78 mm[Hg] Leslie MOISES Raphael [facility] 08/21/2019 15:32:36 Date Recorded Body height Body mass index (BMI) Body weight Heart rate Oxygen saturation Oxygen saturation in Arterial blood by Pulse oximetry Body temperature Systolic And Diastolic Provider Name and Address Organization Details Last Updated DateTime 9 160.02 cm 33.4 kg/m2 02331.1 7 g 85 /min 98 % 98 % 98.9 [degF] 106/64 mm[Hg] Rox Torres MA [facility] 9 11:18:17 Date Recorded Body height Provider Name an d Address Organization Details Last Updated DateTime 12/21/2019 160.02 cm Rox Torres MA [facility] 2019 08:40:51 Social History Question Answer Notes LastModified by Organizat ion Details LastModified Time Tobacco Smoking Status Never Smoker Carolee Rai RN [facility], [facility] 04/23/2016 14:47:38 Do You Have An Advance Directive? No [email or web address] Information not available 06/08/2016 Is Blood Transfusion Acceptable In An Emergency? Yes [email or web address] Information not available 06/08/2016 What Is Your Level Of Caffeine Consumption? Occasional [email or web address] Information not available 06/08/2016 How Much Tobacco Do You Chew? None [email or web address] Information not available 06/08/2016 What Type Of Diet Are You Following? REGULAR [email or web address] Information not available 06/08/2016 Which Illicit Or Recreational Drugs Have You Used? Denies [email or web address] Information not available 06/08/2016 Education 12 [email or web address] Information no t available 06/08/2016 Live Alone Or With Others? With Others [email or web address] Information not available 06/08/2016 What Was The Date Of Your Most Recent Tobacco Screening? 03/28/2020 Information not available 03/28/2020 How Many Children Do You Have? 1 Information not available 06/08/2016 Performs Monthly Self-breast Exam? No [email or web address] Information no t available 06/08/2016 Do You Use Protection During Sex? Usually [email or web address] Information not available 08/05/2016 What Is Your Relationship Status? Single Information not available 06/08/2016 Seat Belts Used Routinely Yes [email or web address] Information not available 06/08/2016 Are You Sexually Active? Yes Information not available 06/08/2016 How Much Tobacco Do You Smoke? No Information not available 04/23/2016 General Stress Level Medium [email or web address] Information not available 06/08/2016 Do You Use Sunscreen Routinely? No [email or web address] Information not available 06/08/2016 On What Date Was Tobacco Cessation Counseling Provided? 03/28/2020 Information not available 03/28/2020 How Many Years Have You Smoked Tobacco? 0 Information not available 04/23/2016 Sex: Female Functional Status Question Answer Note LastModified by Organizat ion Details LastModified Time What is your level of alcohol consumption? None [email or web address] Information not available 06/08/2016 Do you or have you ever used smokeless tobacco? Never used smokeless tobacco Information not available 08/16/2019 Are you currently employed? 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 Never used electronic cigarettes Information not available 08/16/2019 What is your exercise level? Occasional [email or web address] Information not available 06/08/2016 Mental Status None recorded. Family History Relationship Description Onset Age of this Age Resolved Age Notes LastModified by Organization Details LastModified Time Brother Diabetes mellitus 21 strice Not available 2016 14:45:56 Mother Hypertensive disorder strice Not available 2016 14:46:32 Father Hypertensive disorder strice Not available 2016 14:47:21 Medical History Condition Response Coronary Artery Disease N Other N Atrial Fibrillation N High Blood Pressure N Breast Cancer N Blood Clots N COPD N Depression N Lung Disease N Breast Problem N Anesthesia Complications N Headaches/Migraines N Anxiety Disorder N Muscle, Joint, or Bone Problems N Polyps N Infertility N Acid Reflux (GERD) N Cancer N Stroke N Endometriosis N High Cholesterol N Liver Disease N Headaches N Thyroid Problems N Kidney or Bladder Problems N GI Problems N Acne N Eating Disorder N Skin Problems N Anemia N Heart Attack ([place]) N Diabetes N Ovarian Cancer N Blood Transfusions N Seizures/Epilepsy N Abuse/Domestic Violence N Asthma N Allergies N Hepatitis N Heart Disease N Pre-Eclampsia N Heart Failure N Osteoporosis N Gynecological History Statement/Question Response Abnormal Pap N Flow Moderate Date of LMP 02/13/2020 On BCP's at Conception? N STIs/STDs Y HPV Vaccine Y Duration of Flow (days) 4 Age at Menarche 14 Current Control Method None Age at First Child 25 Sexually Active? Y Menses Monthly N Date of Last Pap Smear 08/21/2019 Sexual Problems? N LMP Approximate Obstetrics History GPAL:G 2 P 1 0 1 1 Type Value Multiple Births 0 Full Term 1 Induced 1 Spontaneous 0 Premature 0 Living 1 Ectopics 0 Total 2 Past Encounters Encounter ID Performer Location Encounter Start Date Encounter Closed Date Diagnosis/Indication Diagnosis SNOMED-CT Code Diagnosis ICD10 Code Diagnosis IMO Codes Diagnosis Note [id number] MD Gi Rivera (Adult Med) [address] [place] [address] [id number] 0 04/23/2016 14:28:36 04/23/2016 15:40:09 Vaginal discharge 931489677 N89.8 [id number] MD Gi Rodriguez ([employer]) [address] [place] [address] [id number] 06/08/2016 16:29:02 06/15/2016 17:50:26 Exposure to sexually transmissible disorder 012766875 Z20.2 Family cheyanne nning surveillance 929571732 Z30.09 Initiation of depot contraception done 3879690744 69415 Z30.363 [id number] MD Gi Rodriguez ([employer]) [address] [place] [address] [id number] 0 06/23/2016 15:06:33 06/25/2016 13:29:20 Implantation of subcutaneous contraceptive 770221273 Z30.9 [id number] Jason Coleman MD [facility] ([employer]) [address] [place] [address] [id number] 0 09/22/2016 15:27:08 09/22/2016 17:18:13 Family planning surveillance 956929134 Z30.09 Depressive disorder 3548 9007 F32.81 [id number] Jason Coleman MD [facility] ([employer]) [address] [place] [address] [id number] 03/29/2017 16:30:16 03/29/2017 16:38:23 Streptococcal sore throat 72924301 J02.0 [id number] Jason Coleman MD [facility] ([employer]) [address] [place] [address] 50781-623 0 06/22/2017 13:40:56 06/22/2017 14:34:50 Abscess of left axilla [id number] 6374292 L02.471 [id number] Jason Coleman MD [facility] ([employer]) [address] [place] [address] [id number] 0 07/01/2017 17:05:36 07/01/2017 17:07:07 Family planning surveillance 115080634 Z30.09 Surveillan ce of subcutaneous contraceptive implant done 6115444755 83287 Z30.46 Irregular periods 060594 07 N92.6 [id number] FAIZAN CARNES (Adult Med) [address] [place] [address] [id number] 0 08/29/2018 10:49:50 08/30/2018 10:08:18 Candidiasis of vagina 87907343 B37.3 Complainin g of vaginal itching and increased white, thick vaginal dischargeL ikely a yeast infection, will treat today with fluconazol e 150 mg PO x 1Patient agreed to swab herself in office to make sure treating correctly but swab was found in trash can after she had already left the office Abscess of right axilla [id number] 2641914 L02.411 Indurated and erythemato us healing abscess of right axilla. Hx of multiple of these in axilla.- Cedrick prescribe topical clindamyci n 1% and chlorhexid ine wash for shower to help rid bacteria from skin- Patient to return to office if abscesses continue, the current abscess does not resolve- Advised patient to avoid manual manipulati on, wear loose, light clothing and to actively avoid excessive heat, friction, and shearing trauma. Washing with loofahs or brushes should be avoided to prevent unnecessar y skin trauma and irritation . Keep area clean, dry, and covered. Weight loss can help prevent reoccurren ce. [id number] MD Gi Rodriguez ([employer]) [address] [place] [address] [id number] 0 08/16/2019 15:15:27 08/17/2019 08:54:34 Candidiasis of vagina 78928740 B37.3 Family cheyanne nning surveillance 692124762 Z30.09 wants removal of nexplanon [id number] MD Gi Rodriguez ([employer]) [address] [place] [address] [id number] 0 08/21/2019 15:10:45 08/22/2019 08:46:10 Gynecologic examination 90759928 Z01.419 Exposure t o sexually transmissible disorder 934953809 Z20.2 Removal of subcutaneous contraceptive done 3151062308 08008 Z98.584 [id number] FAIZAN CARNES (Adult Med) [address] [place] [address] [id number] 0 12/21/2019 08:03:44 12/22/2019 09:15:49 Abscess of axilla 41866496 L02.419 History of hidradenit is suppurativ a and multiple skin abscesses excised in OR by Dr. Grier plaining of recurrent abscess in her R axilla which started 3 days ago.It is the size of a 2 quarters side by side and is very swollen and tender to touch. States her pain is about 9/10 from the abscess, it is making it difficult to sleep at night.She has been applying heat at home but has not been taking any medication for the pain.The abscess has not opened up or started draining yet.Admits to mild nausea. No fever or chills. - due to COVID, patient is unable to come to office for I&D, informed patient that if abscess continues to get worse, she may need to go to the ER to have abscess drained- will send ibuprofen PRN for pain and start cephalexin for infection- continue to apply heat to the area multiple times per day- f/u in office in 1.5 weeks (due to COVID) SARS-CoV-2 513323478 U07 .1 She recently tested positive for COVID on 12/15/2019 , she developed symptoms including fever, chills, body aches, and decreased appetite on 12/12/2019 .She has been at home since she started to feel sick adhering to self-quara ntine rules.Unab le to check temperatur e at home since she does not have a thermomete r but states chills and body aches went away 2-3 days ago. Not taking any medication at home.Admit s to mild decreased appetite still. - D/w pt the current pandemic of COVID-19 and call for social isolation until 12/26/2019 in order to blunt the curve and minimize risk and spread. Encouraged patient and family to take restrictio ns seriously. She verbalized understand ing of such. [id number] FAIZAN CARNES (Adult Med) [address] [place] [address] [id number] 0 03/28/2020 09:21:30 03/29/2020 09:33:25 Restless legs syndrome 84285302 G25.81 Phone visit: Difficulty sleeping x 2 weeks, experienci ng awkward sensation in R leg, only occurs at night, constantly awakens her from sleep, improves with walking around but then comes back when she lays down.Minim al relief w/ getting out of bed to walk/stand , no relief w/ OTC ZZZQuil. Denies a personal or family history of RLS or iron deficiency anemia. Wentworth Sleepiness score: 11Likely RLS- Discussed possibly ordering labs in the future to assess for anemia.- Prescribed gabapentin 300 mg qhs.- Contact office if symptoms worsen or do not improve. Pain of sa croiliac joint 604128068 M53.3 Intermitte nt pain between R lower back and buttocks, notices pain when walking, bending or lifting for extended periods of time. Pain improves w/ rest.Denie s neuropathy symptoms between or during episodes. No recent trauma reported. - Prescribed Medrol 4mg for inflammati on- Discussed supportive care for her at home Health Concerns Section Related Observation LastModified by Organization Detai ls LastModified Time None Recorded Concern Status LastModified by Organization Details LastModified Time None Recorded Advance Directives Directive N: Payers Insurance Date Sequence Insurance Name Policy Number Policy Olivo Covered Member ID Olivo Member ID Guarantor Name 11/07/2017 PAYMENT PLAN Rohini Christiansons 06/24/2021 1 [employer] [place] ON OR AFTER 2020 (MEDICAID REPLACEMENT - HMO) Rohini Castellon [id number] Rohini Castellon 08/21/2019 2 [facility] (MEDICAID HMO) Rohini Castellon [id number] Rohini Castellon 12/19/2019 1 [place] [facility] [place] Rohini Castellon [id number] Rohini Castellon 03/26/2020 1 [facility] (MEDICAID HMO) Rohini Castellon [id number] Rohini Castellon 04/20/2024 1 [place] Rohini Castellon [id number] Rohini Castellon 11/27/2016 1 [place] Rohini Castellon [id number] Rohini Castellon 06/29/2016 1 [place] [id number] Trino Castellon [id number] Rohiin Castellon 06/29/2016 2 [place] WHEN MEDICARE OR MEDICARE REPLACEMENT PRIMARY) Rohiniyanely Hernándezuels [id number] Rohini Castellon 11/27/2016 1 [place] [id number] Trino Castellon [id number] Rohini Castellon 08/21/2019 1 [place] [id number] Trino Castellon [id number] Rohini Castellon 08/30/2018 2 [place] [facility] [place] Rohini Castellon [id number] Rohini Castellon 03/29/2017 3 *SELF PAY* Clotilde Castellon Notes Date Note Type Note Provider Name and Address Organization Details Recorded Time 08/29/2018 text/html ROS as noted in the HPI 27 year old AAF presents today for possible yeast infection. Patient finished her menstrual cycle last week and afterwards developed an increase in white, thick vaginal discharge. Admits to vaginal itching. Denies pelvic pain, fever, chills, nausea, vomiting, dysuria, urinary frequency, or hematuria. Also complaining of boil underneath right arm present x 1 week. Patient has a history of developing multiple boils underneath her arms but nowhere else. Patient went to ER last week, boil under left arm was drained via I&D and now healed. Right boil was not drained at the ER but popped on its own 3 days ago. Area is still slightly painful but much better after it popped and fluid drainage. Abscess is healing now. No fever or chills. Fina Aden MD Attn: [address]ing[address] [place], [address], [facility] 08/29/2018 14:52:37 08/16/2019 text/html Vaginal/Vulvar ProblemReported by PatientHPIFor associated symptoms, patient reportsvaginal itchingandvulvar itching/irritationbut reportsno vaginal irritation,no vaginal pain,no vulvar swelling/erythema,no vulvar pain,no vulvar lesions,no pelvic pain,no dyspareunia,no dyruria,no fever, andno abdominal pain. For location, patient reportsvulva. For onset/timing, patient reportsafter intercourse. For quality, patient reportsitchingandburni ng. For context, patient reportssexually activeandcurrent contraception: (nexplanon). 26 yo AAF with nexplanon wants it removed Jason Virginiatisha call, [facility] 08/16/2019 15:54:12 08/21/2019 text/html Vaginal/Vulvar ProblemReported by PatientHPIFor associated symptoms, patient reportsvaginal itchingandvulvar itching/irritationbut reportsno vaginal irritation,no vaginal pain,no vulvar swelling/erythema,no vulvar pain,no vulvar lesions,no pelvic pain,no dyspareunia,no dyruria,no fever, andno abdominal pain. For location, patient reportsvulva. For onset/timing, patient reportsafter intercourse. For quality, patient reportsitchingandburni ng. For context, patient reportssexually activeandcurrent contraception: (nexplanon). 26 yo AAF with nexplanon wants it removed Jason Coleman jakub, [facility] 08/21/2019 17:53:02 12/21/2019 text/html ROS as noted in the HPI 27 year old AAF with a history of hidradenitis suppurativa and multiple skin abscesses excised in OR by Dr. Kamara presents today for phone visit. She recently tested positive for COVID on 12/15/2019, she developed symptoms including fever, chills, body aches, and decreased appetite on 12/12/2019. She has been at home since she started to feel sick adhering to self-quarantine rules. Unable to check temperature at home since she does not have a thermometer but states chills and body aches went away 2-3 days ago. Not taking any medication at home. Admits to mild decreased appetite still. Denies vomiting, headaches, sore throat, loss of smell, loss of taste, chest pain, and SOB. Complaining of recurrent abscess in her R axilla which started 3 days ago. It is the size of a 2 quarters side by side and is very swollen and tender to touch. States her pain is about 9/10 from the abscess, it is making it difficult to sleep at night. She has been applying heat at home but has not been taking any medication for the pain. The abscess has not opened up or started draining yet. Admits to mild nausea. No fever or chills. FAIZAN CARNES Attn: Accounting[address] [place], [address], [facility] 12/21/2019 09:39:13 03/28/2020 text/html ROS as noted in the HPI Rohini is a 29 y/o female who complains of difficulty sleeping x 2 weeks. Patient consulted via phone visit. Patient has been having difficulty staying asleep x 2 weeks. Says she is able to fall asleep but wakes up at various times throughout the night due to awkward sensations in her R leg. The sensation is felt only in the R leg and only occurs when the patient lays down to go to sleep. Feeling is not present when she is working or sitting down in a chair. She says when the sensation happens she will get out of bed to walk around, which helps calm the awkward feeling in her leg. However, as soon as she lays down the sensation returns. Recently, she has tried taking ZZZQuil but has not been able to stay asleep without experiencing these abnormal leg sensations. Admits to increased stress in her life over the past few weeks, her and her are going through a divorce. Denies a personal or family history of RLS or iron deficiency anemia. Patient is also complaining of intermittent R lower back pain (notes between low back and butt) that has been occuring over the past few years. Says she notices the pain occurs when she has been walking, bending or lifting for extended periods of time. Patient has not tried any OTC pain medicatons for this but says sitting and laying down relieve the pain. No recent trauma reported. Denies neuropathy symptoms between or during episodes. FAIZAN CARNES Attn: Accounting[address] [place], [address], [facility] 03/29/2020 08:29:31 OBGyn Episode Ob Episode Information Episode Created Date Number of Fetuses Patient Bloodtype Patient rh Status Prepregnancy Weight lbs Domestic Partner Domestic Partner Phone Father Name Customs Director Status 06/09/19 17 1 CLOSED Fetus Data First Name Last Name Admitted to NICU Weight (g) Sex Living Outcome Pediatric Complications Fetus ID Race Codes Race Delivery Type 3345.24 1 M Full Term [id number] Standard Vaginal Delivery Elder Calculation Initial Elder Date Initial Exam Date Initial Exam Provider Initial Ultrasound Date Last Menstrual Period Date Ultra Sound Weeks Gestation 0 Eighteen To Twenty Week Elder Update Ultra Sound Date Fundal Height At Umbil Quickening Date Ultra Sound Latest Weeks Gestation Final Elder Confirmed By Final Elder Confirmed Date Final Elder Date Ultra Sound Latest Days Gestation 0 0 Menstrual History Last Menstrual Date Menses Monthly On Bcp Conception Prior Menses Frequency Hcg Plus Date Menarche Onset Age Delivery Information Delivery Date Delivery Type Labor Anesthesia Weeks Gestation Incision Type Labor Labor Length Hrs Delivered By Post Complications Tubal Sterilization Discharge Date Comments 6 None 38 false 6 Discharge Information Feeding Method Contraceptive Method Maternal HG B and HCT Levels
--- OUTSIDE RECORDS SUMMARY | 2024-12-05 12:21 | XMS_ITS | Clinical Summary ---
Author Organization [facility] Address [address] [place] [address] Care Team Providers Care Can Line Examiner Name Role Phone None, Provider MD Primary [...] Comments Blood Pressure 148/71 02/20/2023 1:21 PM PROFESSOR OF GEOLOGY Pulse 89 02/20/2023 1:21 PM PROFESSOR OF GEOLOGY Temperature 36.4 C (97.5 F) 02/20/2023 1:21 PM PROFESSOR OF GEOLOGY Respiratory Rate 18 02/20/2023 1:21 PM PROFESSOR OF GEOLOGY Oxygen Saturation 100% 02/20/2023 1:21 PM PROFESSOR OF GEOLOGY Inhaled Oxygen Concentration - - Weight 86.5 kg (190 lb 11.2 oz) 02/20/2023 1:21 PM PROFESSOR OF GEOLOGY Height 157.5 cm (5' 2) 02/20/2023 1:21 PM PROFESSOR OF GEOLOGY Body Mass Index 34.88 02/20/2023 1:21 PM PROFESSOR OF GEOLOGY Plan of Treatment Health Maintenance Due Date Last Done Comments Cervical Cancer Screening Pa p Smear (Age 30 to 64) Every 3 Years 1992 Annual Physical 09/13/1995 Hepatitis C 2010 DTaP, Tdap and Td Vaccines ( 1 - Tdap) 09/13/2011 Hepatitis B Vaccines (1 of 3 - 19+ 3-dose series) 09/13/2011 HPV Vaccines (1 - 3-dose SCD M series) 09/13/2019 Cervical Cancer Screening Pa p with HPV Testing (Age 30 to 64) Every 5 Years 2022 Cervical Cancer Screening wi th HPV 2022 COVID-19 Vaccine ( - 2024-2 6 season) 2024 07/23/2020, 07/02/2020 Influenza Adult (#1) 2024 Meningococcal B Vaccine Aged Out No l [...] patient's age to complete this topic [place] [address] [place] [address] Care Teams Can Line Examiner Relationship Specialty Start Date End Date None, Provider, PCP - General 09/02/21
== END 2024-12-05 11:06 | disposition home or self-care (01) ==
LOC: ANHLAB 11:08
PROVIDERS: PCP Internal Medicine Infectious Disease; Visit Provider Surgery
DX: R74.8 Abnormal levels of other serum enzymes (principal)
CPT/HCPCS: 36415; 80053; 85025

== ENCOUNTER 2024-12-11 10:19 | Outpatient (CLI) | payer OTHER, SELFPAY ==
[2024-12-11 11:04] LABS: Alanine Aminotransferase 57 U/L (6-35); Albumin Level 4.5 g/dL (3.5-5.1); Alkaline Phosphatase 82 U/L (38-126); Amylase 106 U/L (30-110); Aspartate Amino Transferase 28 U/L (14-36); Bilirubin,Total 0.3 mg/dL (0.2-1.3); Total Protein 8.1 g/dL (6.3-8.2)
--- OUTSIDE RECORDS SUMMARY | 2024-12-11 11:19 | XMS_ITS | Clinical Summary ---
Author Organization [facility] Address [address] [place] [address] Care Team Providers Care General Production Laborer Name Role Phone None, Provider MD Primary [...] Comments Blood Pressure 148/71 02/20/2023 1:21 PM DIRECTOR INSTITUTION Pulse 89 02/20/2023 1:21 PM DIRECTOR INSTITUTION Temperature 36.4 C (97.5 F) 02/20/2023 1:21 PM DIRECTOR INSTITUTION Respiratory Rate 18 02/20/2023 1:21 PM DIRECTOR INSTITUTION Oxygen Saturation 100% 02/20/2023 1:21 PM DIRECTOR INSTITUTION Inhaled Oxygen Concentration - - Weight 86.5 kg (190 lb 11.2 oz) 02/20/2023 1:21 PM DIRECTOR INSTITUTION Height 157.5 cm (5' 2) 02/20/2023 1:21 PM DIRECTOR INSTITUTION Body Mass Index 34.88 02/20/2023 1:21 PM DIRECTOR INSTITUTION Plan of Treatment Health Maintenance Due Date [...] patient's age to complete this topic [place] [place] [address] Care Teams General Production Laborer Relationship Specialty Start Date End Date None, Provider, PCP - General 09/02/21
--- OUTSIDE RECORDS SUMMARY | 2024-12-11 11:19 | XMS_ITS | Clinical Summary ---
Author Organization [facility] Address [address] [place] [address] Care Team Providers Care Computer Typesetter Name Role Phone No, Physician Primary Care Provider [phone] Allergies No known active allergies Medications doxycycline [...] on file Legal Sex Female 10:07 AM CONTAINERS SALES REPRESENTATIVE Gender Identity Not on file Sexual Orientation Not on file Obstetrics History Last Filed Vital Signs Vital Sign Reading Time Taken Comments Blood Pressure 125/96 04/30/2023 11:01 AM CONTAINERS SALES REPRESENTATIVE Pulse 74 04/30/2023 11:01 AM CONTAINERS SALES REPRESENTATIVE Temperature 36.4 C (97.5 F) 04/30/2023 11:01 AM CONTAINERS SALES REPRESENTATIVE Respiratory Rate 16 04/30/2023 11:01 AM CONTAINERS SALES REPRESENTATIVE Oxygen Saturation 100% 04/30/2023 11:01 AM CONTAINERS SALES REPRESENTATIVE Inhaled Oxygen Concentration - - Weight 83 kg (183 lb) 04/30/2023 11:01 AM CONTAINERS SALES REPRESENTATIVE Height 157.5 cm (5' 2) 04/30/2023 11:01 AM CONTAINERS SALES REPRESENTATIVE Body Mass Index 33.47 04/30/2023 11:01 AM CONTAINERS SALES REPRESENTATIVE Plan of Treatment Health Maintenance Due Date [...] patient's age to complete this topic Insurance [facility] Care Teams Computer Typesetter Relationship Specialty Start Date End Date No, Physician PCP - General 04/29/23
--- OUTSIDE RECORDS SUMMARY | 2024-12-11 11:20 | XMS_ITS | Patient Health Record ---
Author Organization [facility] Address [address] [place] [address] Care Team Providers Care Hvac Residential Service Technician Name Role Phone Kota Virk Primary [...] Fahrenheit 02/10/2024 Respiratory Rate 16 /min 02/10/2024 Oximetry 98 % 02/10/2024 Blood pressure diastolic 74 mm Hg 02/10/2024 Blood pressure systolic 116 mm Hg 02/10/2024 Weight 187.4 lbs 02/10/2024 Encounters Encounter Location Date Provider Diagnosis [address] [place] [address] 02/10/2024 Kota Virk Physical exam, pre-employment Z02.1 [...] Insured Coverage Start Date Coverage End Date [facility] Claims Department [address] [place] [address] [phone] Rohini Castellon Self - patient is the insured 4 Medical (General) History Medical History History ICD Code Hidradenitis suppurativa Surgical History Surgery Date(Month/Year) hernia removal Hospitalization History Reason Date(Month/Year)
== END 2024-12-11 10:20 | disposition home or self-care (01) ==
PROVIDERS: PCP Internal Medicine Infectious Disease; Visit Provider Surgery
DX: K81.1 Chronic cholecystitis (principal); Z01.818 Encounter for other preprocedural examination
CPT/HCPCS: 36415; 80076; 82150; 86850; 86900; 86901

== ENCOUNTER 2024-12-15 00:35 | Day surgery (SDC) | payer OTHER, SELFPAY ==
--- OUTSIDE RECORDS SUMMARY | 1999-03-19 05:45 | XMS_ITS | Continuity of Care Document ---
Author Organization [facility] Address [address] [place] [address] Phone Care Team Providers Care Bpm Developer Name Role Phone Henry Zavala Unavailable Unavailable Advance Directives Directive Yes / No Effective Date File Name No Information Encounters Encounter Description Practice Location Reason(s) For Visit Diagnoses Date Provider Providers Copied on Encounter [facility], [address], [place], [place], [address], [place] tel:[phone] SEC [facility]note 3[facility] No Information 9-200 0 Sally Figueroa. [address] [facility] , [address], [place], [address], [place]. tel:[phone] Family History Family Member Type Diagnosis Age At Onset No Information Payers Payer name Insurance type Covered alliance party ID Authoriza tion(s) Medicaid [facility]ENDING S[facility] [id number] Social History Type Description Quantity Date Captured [...]
--- OUTSIDE RECORDS SUMMARY | 2014-10-19 11:33 | XMS_ITS | Continuity of Care Document ---
Author Organization [facility] Address [address] [place] [address] Phone Care Team Providers Care Wrecker Driver Name Role Phone Unavailable Unavailable Unavailable Medications Medication Instructions Dosage Effective Dates (start - stop) Status Comments Vitamin 27 mg-0.8 mg tablet take 1 tablet by oral route every day - Active June cassandra for any of the free vitamins Procedures Procedure Date RN services, up to 15 minutes URINE TEST, BY VISUAL COLOR [employer] MPARISON METHODS Advance Directives Directive Yes / No Effective Date File Name No Information Encounters Encounter Description Practice Location Reason(s) For Visit Diagnoses Date Provider Providers Copied on Encounter [facility] , [address], [place], [place], [id number], tel:[phone] [facility] No Information No Information [facility] , [address], [place], [place], [address], tel:[phone] [facility] examination or test, positive resultAbsence of menstruation Nurse Registered. [address], [place], [place], [address], . tel:[phone] Referring Provider: Registered Nurse, [address], [place], [address]. tel:[phone] Family History Family Member Type Diagnosis Age At Onset No Information Payers Payer name Insurance type Covered libertarian ID Authoriza tion(s) No Information Social History Type Description Quantity Date Captured Comments Sex Female Smoking Status No Information Chief Complaint And Reason For Visit No Information Reason For Referral Reason For Referral No Information Plan Of Treatment Date Type Action Status Future Order: Radiology Order OB US < 14 Weeks, Single Fetus ([id number]), Ordered on: Ordered History Of Present Illness Encounter Date Complaint History Of Prese nt Illness No Information Functional Status Date Functional Assessmen t No Information Instructions Date Instruction Additional Infor mation No Information Assessments Type Assessment Date No Information Patient Care Teams Name Effective Dates (start - stop) Status Members No Information
[2024-12-06 14:04] VITALS: BMI 35.7
--- NOTE | 2024-12-06 14:12 | PC.NURSE ---
[facility] has started construction of its new state of the art ER which will open Spring 2026. With this, we anticipate parking may be a challenge for some our surgical patients and families. Parking spaces are limited but are available for all Surgical, obstetrics, and ER patients sharing this lot. If you arrive and find you are having a hard time finding a parking space, please note that we understand the challenges, please drive around the hospital and park near Hospital Entrance 1. When you enter this entrance, you can ask a volunteer to direct or take you back to the surgical waiting area to check in. We appreciate everyone?s understanding of these expected challenges while we build for your future. Report to the Outpatient Waiting Room, entrance under the green pavilion located off [address], at time _0600_ on date _[phone]_. Planned Procedure Time: _0730_.? Time changes happen often and if your time is changed the preop area will call you the afternoon before. - You and your visitor will be asked to self-screen and do not enter if you have any COVID symptoms. Please call surgeon if you need to reschedule. - A mask is optional within the hospital at this time. Patients may have clear liquids (water, carbonated beverages, clear teas, apple juice) until 3 hours prior to surgery with a maximum of 20 ounces. - No food from midnight until time of surgery and no smoking, or chewing tobacco (or any form of nicotine). No chewing gum, candy or mints. Take only the following medications with a SIP of water on the morning of surgery: __Take antibiotic. If needed may use hydrocodone and or zofran. DO NOT STOP ANY OF YOUR OTHER PRESCRIPTION MEDICATIONS PRIOR TO SURGERY EXCEPT THE FOLLOWING Hold all vitamins and supplements for 3 days per anesthesiologist. Medications to discontinue per physician __Ibuprofen as per Dr Bianchi.____ Date to take last dose Please no make-up, nail divehi, hairspray, perfume, deodorant, or body powder the day of surgery.? No jewelry (including any body piercings) or valuables the day of surgery, leave them at home.? Please take a shower or bath the night before, or the morning of, surgery with an antibacterial soap.? Wear comfortable, loose fitting clothing.? - Jewelry must be removed prior to entering the operating room.? Rings and piercings that are not removed may be cut off. - The hospital will not accept responsibility for valuables.? - Please leave all valuables, including medications, at home the day of surgery. If you are going home after surgery, a licensed certified driver examiner must drive you home.? - NO public transportation without another adult if you receive anesthesia. - We recommend that an adult stay with you for 24 hours following discharge. - We also recommend that you do not drive, make important decision, drink alcoholic beverages, or take any drugs that were not prescribed by your health care provider for at least 24 hours after your discharge time. Follow any additional instructions given to you from your surgeon. Telephone instructions given to __Rohini__and asked if any additional questions and then verbalized understanding. Patient advised to call surgeon office or pre surgery nurse liaison [phone] if any additional questions.
[2024-12-15] VITALS (9 sets, daily range): BP systolic 117–150; BP diastolic 75–87; PULSE 72–96; RESP 12–19; TEMP 36.5–36.6; O2SAT 94–100
--- OUTSIDE RECORDS SUMMARY | 2024-12-15 00:38 | XMS_ITS | Clinical Summary ---
Author Organization [facility] Address [address] [place] [address] Care Team Providers Care Sanitor Name Role Phone None, Provider MD Primary [...] Comments Blood Pressure 148/71 02/20/2023 1:21 PM LAYOUT MECHANIC Pulse 89 02/20/2023 1:21 PM LAYOUT MECHANIC Temperature 36.4 C (97.5 F) 02/20/2023 1:21 PM LAYOUT MECHANIC Respiratory Rate 18 02/20/2023 1:21 PM LAYOUT MECHANIC Oxygen Saturation 100% 02/20/2023 1:21 PM LAYOUT MECHANIC Inhaled Oxygen Concentration - - Weight 86.5 kg (190 lb 11.2 oz) 02/20/2023 1:21 PM LAYOUT MECHANIC Height 157.5 cm (5' 2) 02/20/2023 1:21 PM LAYOUT MECHANIC Body Mass Index 34.88 02/20/2023 1:21 PM LAYOUT MECHANIC Plan of Treatment Health Maintenance Due Date [...] 2024 07/23/2020, 07/02/2020 Influenza Adult (#1) 2024 Hepatitis A Vaccines Aged Out No long er eligible based on patient's age to complete [...] patient's age to complete this topic Insurance [employer] Care Teams Sanitor Relationship Specialty Start Date End Date None, Provider, PCP - General 09/02/21
--- OUTSIDE RECORDS SUMMARY | 2024-12-15 00:38 | XMS_ITS | Data Portability ---
Author Organization [facility] Myah Address [address] [facility] [place] [address] Care Team Providers Care Student Ministries Director Name Role Phone TIFFANY RICHTER Primary Care Provider Assessment Encounter Date Assessment Date Assessment LastModified [...] DO Not Attach Compendium, Do Not Delete/merge, [id number] 0 18:20:03 pap, IG + HPV, cervical 2019 020 [facility], [address] [place] [address], [address], [place], [address], 0 10:36:52 bacterial vaginosis panel, vaginal 2019 020 JESSICA [facility] (Centralized Electronic Ordering - All Locations), Patient Can Go To The Location Of Their Choice, [address] 0 06:11:23 culture, vaginal/r ectal, streptoco ccus group B 2019 020 JESSICA [facility] (Centralized Electronic Ordering - All Locations), Patient Can Go To The Location Of Their Choice, [address] 0 06:11:23 Referral None recorded. Procedures None recorded. Surgeries None recorded. Imaging None recorded. Medication Orders Medrol (Jabier) 4 mg tablets in a dose pack 2020 021 [facility] #56875, [address] [place] [address], [id number], 1 13:05:36 gabapenti n 300 mg capsule [address] [facility] #96994, [address] [place] [address], [id number], 1 08:25:12 ondansetr on 8 mg disintegr ating tablet 2019 [facility] #41176, [address] [place] [address], [id number], 1 12:14:58 cephalexi n 500 mg capsule [address] [facility] #90207, [address] [place] [address], [id number], 1 14:14:15 ibuprofen 800 mg tablet [address] [facility] #55858, [address] [place] [address], [id number], 1 14:14:08 multivita min tablet 2019 020 [facility] #72909, [address] [place], [place], [id number], 0 08:41:08 Calcium with Vitamin D 600 mg-10 mcg (400 unit) tablet 2019 [facility] #65528, [address] [place], [place], [id number], 0 08:41:04 fluconazo le 150 mg tablet 2019 020 [facility] #35494, [address] [place], [place], [id number], 0 15:33:22 nystatin 100,000 unit/gram topical cream 2019 020 [facility] #60787, [address] [place], [place], [id number], 0 15:33:54 Nuvessa 1.3 % (65 mg/5 gram) vaginal gel 2019 020 [facility] #[id number] [place], [place], [id number], 0 08:39:13 fluconazo le 150 mg tablet 2018 019 [email or web address] Not available 0 15:33:22 chlorhexi dine gluconate 4 % topical liquid 2018 019 [email or web address] Not available 0 15:23:21 Clindagel 1 % topical gel, once daily 2018 019 [email or web address] Not available 0 15:23:18 Patient TargetsNo targets recorded. Patient Instructions Encounter Date Encounter Id Patient Instructions Last Modified By Organization Details Last Modified Time 08/29/2018 [id number] I have reviewed the provider's note and I agree with the documented assessment and plan. HLF [email or web address] Not available 08/29/2018 14:52:34 08/16/2019 [id number] vaginal yeast infection: care instructions [email or web address] Not [...] diffe renti ation . Not Available [facility] ([facility]) [address] [facility], [place], [address], 08/25/2019 10:36:52 08/21/19 20 08/25/2019 pap, IG + HPV, cervi césar diagnosis: Dasha t NEGAT RENÉ FOR INTRA EPITH ELIAL LESIO N OR POPEYE DORADO . Not Available [facility] ([facility]) [address] [place], [address], 08/25/2019 10:36:52 08/21/19 20 08/25/2019 pap, IG + HPV, cervi césar specimen adequacy: Dasha t Satis facto ry for evalu ation . Endoc ervic al and/o r squam ous metap lasti c cells (endo cervi césar compo nent) are prese nt. Not Available [facility] ([facility]) [address] [facility], [place], [address], 08/25/2019 10:36:52 08/21/19 20 08/25/2019 pap, IG + HPV, cervi césar clinician provided ICD10: Dasha lund Z01.4 19 Not Available [facility] ([facility]) [address] [place], [address], 08/25/2019 10:36:52 08/21/19 20 08/25/2019 pap, IG + HPV, cervi césar performed by: Dasha Ventura Cytot mp lund Not Available [facility] ([facility]) [address] [place], [address], 08/25/2019 10:36:52 08/21/19 20 08/25/2019 pap, IG + HPV, cervi césar . . Not Available [facility] ([facility]) [address] [place], [address], 08/25/2019 10:36:52 08/21/19 20 08/25/2019 pap, IG [...] ts do occur . Not Available [facility] ([facility]) [address] [place], [address], 08/25/2019 10:36:52 08/21/19 20 08/25/2019 pap, IG + HPV, cervi césar test methodology: Dasha t This liqui d based ThinP rep(R ) pap test was scree miriam with the use of an image guide d systmilton m. Not Available [facility] ([facility]) [address] [place], [address], 08/25/2019 10:36:52 08/21/19 20 08/24/2019 bacte rial vagin osis panel , vagin al trich vag by ISABEL Negati ve negati ve Not Available [facility] ([facility]) [address] [place], [address], 08/29/2019 06:11:23 08/21/19 20 08/24/2019 bacte rial vagin osis panel , vagin al chlamydia trachomatis, ISABEL Negati ve negati ve Not Available [facility] ([facility]) [address] [place], [address], 08/29/2019 06:11:23 08/21/19 20 08/24/2019 bacte rial vagin osis panel , vagin al neisseria gonorrhoeae, ISABEL Negati ve negati ve Not Available [facility] ([facility]) [address] [place], [address], 08/29/2019 06:11:23 08/21/19 20 08/28/2019 bacte rial vagin osis panel , vagin al hsv 1 ISABEL Negati ve negati ve Not Available [facility] ([facility]) [address] [place], [address], 08/29/2019 06:11:23 08/21/19 20 08/28/2019 bacte rial vagin osis panel , vagin al hsv 2 ISABEL Negati ve negati ve Not Available [facility] ([facility]) [address] [place], [address], 08/29/2019 06:11:23 08/21/19 20 08/29/2019 bacte rial vagin osis panel , vagin al atopobium vaginae High - 2 score abnormal Not Available [facility] ([facility]) [address] [place], [address], 08/29/2019 06:11:23 08/21/1908/29/2019 bacte rial vagin osis panel , vagin al bvab 2 Modera te - 1 score Not Available [facility] ([facility]) [address] [place], [address], 08/29/2019 06:11:23 08/21/19 20 08/29/2019 bacte rial [...] is not neces miranda. Not Available [facility] ([facility]) [address] [facility], [place], [address], 08/29/2019 06:11:23 08/21/19 20 08/29/2019 bacte rial vagin osis panel , vagin al luz albicans, ISABEL Negati ve negati ve Not Available [facility] ([facility]) [address] [place], [address], 08/29/2019 06:11:23 08/21/19 20 08/29/2019 bacte rial vagin osis panel , vagin al luz glabrata, ISABEL Negati ve negati ve Not Available [facility] ([facility]) [address] [facility], [place], [address], 08/29/2019 06:11:23 08/21/19 20 08/24/2019 cultu re, [...] n is noted . Not Available [facility] ([facility]) [address] [facility], [place], [address], 08/29/2019 06:11:23 08/21/1908/21/2019 urina lysis , dipst [...] DO Not Attach Compendium, Do Not Delete/merge, [id number] 08/21/2019 15:36:46 08/21/19 20 08/21/2019 urina lysis , dipst ick Specific [place] 1.025 Not Available In-Off ice Order Internal Use Only DO Not Attach Compendium DO Not Attach Compendium, Do Not Delete/merge, [id number] 08/21/2019 15:36:46 08/21/19 20 08/21/2019 urina lysis , dipst ick Ketone Negati ve Not Available In-Office Order Internal Use Only DO Not Attach Compendium DO Not Attach Compendium, Do Not Delete/merge, [id number] 08/21/2019 15:36:46 08/21/19 20 08/21/2019 urina lysis , dipst ick Bilirubin Negati ve Not Available In-Office Order Internal Use Only DO Not Attach Compendium DO Not Attach Compendium, Do Not Delete/merge, [id number] 08/21/2019 15:36:46 08/21/19 20 08/21/2019 urina lysis , dipst ick Glucose Negati ve Not Available In-Office Order Internal Use Only DO Not Attach Compendium DO Not Attach Compendium, Do Not Delete/merge, [id number] 08/21/2019 15:36:46 09/02/19 25 09/01/2024 XR, chest No observ ation record ed. [place] [address], [place], [address], 09/04/2024 08:43:09 Result Notes None recorded. Problems Name Problem SNOMED Code Status Onset Date Resolution Date Notes Provider Name and Address Organization Details Recorded Time Streptoc occal sore throat 95342218 Completed 201608/29/2018 FAIZAN CARNES Attn: Jigar forrest,[address] [place], [address], [facility] 9 11:58:36 Chlamydi al infectio n 517288221 Completed 201608/29/2018 FAIZAN CARNES Attn: Jigar forrest[address] [facility] [place], [address] [place] [address] 2, [place] [facility] 9 11:58:33 Bacteria l vaginosi s 124965504 Completed 201903/25/2020 FAIZAN CARNES Attn: Jigar forrest,[address] [facility], [place], [place], [address] [place] [address] 2, [place] - [facility] 1 14:14:01 Hidraden itis suppurat jael 29228190 Active 2019 FAIZAN CARNES Attn: Jigar forrest,[address] [facility], [place], [place], [address] [place] [address] 2, [place] [facility] 0 14:44:56 Abscess of axilla 30529250 Active [address] Kamara, drained in the ER. Drainage and excision of bIlateral axillary abscesses in the OR on 09/28/2019 . FAIZAN CARNES Attn: Jigar lon,[address] [facility], [place], [place], [address] [place] [address] 2, [place] [facility] 0 08:46:37 Hypokale tom 62376858 Active 2019 FAIZAN CARNES Attn: Jigar forrest,[address] [place], [place], [address] [place] [address] 2, [place] [facility] 0 15:58:49 Leukopen ia 37060802 Active 2019 FAIZAN CARNES Attn: Jigar forrest,[address] [place], [place], [address] [place] [address] 2, [place] [facility] 0 15:58:54 Liver enzymes level above referenc e range 016824162 Active 2019 FAIZAN CARNES Attn: Jigar forrest,[address] [place], [place], [address] [place] [address] 2, [place] - [facility] 0 15:59:03 Notes:Last known vaccine was the flu shot in 2016. Problem Notes None recorded. Procedures Surgical History Date Name Laterality Status Provider Name and Address Organization Details Recorded Time 0 incision and drainage of abscess completed FAIZAN CARNES Attn: Accounting,[address] , [place], [address], [facility] 10/06/2019 08:47:23 0 Control Implant Removal completed Jason Coleman [facility] 08/21/2019 17:51:26 0 Date of Last Pap Smear completed Leslie Raphael MA [facility] 08/21/2019 15:35:46 7 Control Implant Insertion completed Aaliyah Shepard [place] [facility] 06/23/2016 16:53:26 I&d abscess simple/single completed Rox Torres [place] [facility] 08/29/2018 11:15:35 Imaging Results None recorded. Procedure Notes None recorded. Medical Equipment None Reported. Allergies Allergen ID Allergen Name Allergen Category Reaction Reaction Severity Criticality Documentation Date Start Date Code Code System Note Provider Name and Address Organization Details Recorded Time 810550 latex environme nt,medica tion rash moderate Not available 08/16/2019 10589 91 RxNorm yeast infec tion Rox Swann MA null, [place] [facility] 0 15:22:57 Medications Name Sig [...] propionate 50 mcg/actuati on nasal spray,suspe nsion [place] 1 spray every day by intranasa l [...] DateTime 03/28/2020 160.02 cm Rox Torres MA [facility] 2020 12:14:49 Date Recorded Body height Body mass index (BMI) Body weight Provider Name and Address Organization Details Last Updated DateTime 08/16/2019 160.02 cm 37.4 kg/m2 36520.99 g Rox Swann MA [facility] 08/16/2019 15:17:56 Date Recorded Body height Body mass index (BMI) Body weight Systolic And Diastolic Provider Name and Address Organization Details Last Updated DateTime 08/21/2019 160.02 cm 37.2 kg/m2 11265.4 g 122/78 mm[Hg] Leslie MOISES Raphael [facility] 08/21/2019 15:32:36 Date Recorded Body height Body mass index (BMI) Body weight Heart rate Oxygen saturation Oxygen saturation in Arterial blood by Pulse oximetry Body temperature Systolic And Diastolic Provider Name and Address Organization Details Last Updated DateTime 9 160.02 cm 33.4 kg/m2 32480.1 7 g 85 /min 98 % 98 % 98.9 [degF] 106/64 mm[Hg] Rox Torres MA [facility] 9 11:18:17 Date Recorded Body height Provider Name an d Address Organization Details Last Updated DateTime 12/21/2019 160.02 cm Rox Torres MA [facility] 2019 08:40:51 Social History Question Answer Notes LastModified by Organizat ion Details LastModified Time Tobacco Smoking Status Never Smoker Carolee Rai RN [facility], [facility] 04/23/2016 14:47:38 Do You Have An Advance Directive? No [email or web address] Information not available 06/08/2016 Is Blood Transfusion Acceptable In An Emergency? Yes Information not available 06/08/2016 What Is Your Level Of Caffeine Consumption? Occasional [email or web address] Information not available 06/08/2016 How Much Tobacco Do You Chew? None [email or web address] Information not available 06/08/2016 What Type Of Diet Are You Following? REGULAR [email or web address] Information not available 06/08/2016 Which Illicit Or Recreational Drugs Have You Used? Denies [email or web address] Information not available 06/08/2016 Education 12 [email or web address] Information no t available 06/08/2016 Live Alone Or With Others? With Others [email or web address] Information not available 06/08/2016 What Was The Date Of Your Most Recent Tobacco Screening? 03/28/2020 Information not available 03/28/2020 How Many Children Do You Have? 1 [email or web address] Information not available 06/08/2016 Performs Monthly Self-breast Exam? No [email or web address] Information no t available 06/08/2016 Do You Use Protection During Sex? Usually [email or web address] Information not available 08/05/2016 What Is Your Relationship Status? Single [email or web address] Information not available 06/08/2016 Seat Belts Used Routinely Yes [email or web address] Information not available 06/08/2016 Are You Sexually Active? Yes [email or web address] Information not available 06/08/2016 How Much Tobacco Do You Smoke? No Information not available 04/23/2016 General Stress Level Medium [email or web address] Information not available 06/08/2016 Do You Use Sunscreen Routinely? No [email or web address] Information not available 06/08/2016 On What Date Was Tobacco Cessation Counseling Provided? 03/28/2020 Information not available 03/28/2020 How Many Years Have You Smoked Tobacco? 0 Information not available 04/23/2016 Sex: Female Functional Status Question Answer Note LastModified by Organizat ion Details LastModified Time What is your level of alcohol consumption? None Information not available 06/08/2016 Do you or have you ever used smokeless tobacco? Never used smokeless tobacco Information not available 08/16/2019 Are you currently employed? 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 Never used electronic cigarettes Information not available 08/16/2019 What is your exercise level? Occasional [email or web address] Information not available 06/08/2016 Mental Status None [...] High Blood Pressure N Breast Cancer N Depression N COPD N Blood Clots N Lung Disease N Breast Problem N Anesthesia Complications N Headaches/Migraines N Anxiety Disorder N Muscle, Joint, or Bone Problems N Infertility N Polyps N Acid Reflux (GERD) N Cancer N Stroke N Endometriosis N High Cholesterol N Liver Disease N Headaches N Thyroid Problems N Kidney or Bladder Problems N GI Problems N Acne N Skin Problems N Eating Disorder N Anemia N Heart Attack ([place]) N Ovarian Cancer N Diabetes N Blood Transfusions N Seizures/Epilepsy N Abuse/Domestic Violence N Allergies N Asthma N Hepatitis N Heart Disease N Pre-Eclampsia N Osteoporosis N Heart Failure N Gynecological History Statement/Question Response Abnormal Pap [...] ICD10 Code Diagnosis IMO Codes Diagnosis Note [id number] MD Gi Rivera (Adult Med) [address] [place] [phone] 0 04/23/2016 14:28:36 04/23/2016 15:40:09 Vaginal discharge 195556159 N89.8 [id number] MD Gi Rodriguez (DEVELOPING MACHINE OPERATOR) [address] [place] [address] [phone] 0 06/08/2016 16:29:02 06/15/2016 17:50:26 Exposure to sexually transmissible disorder 825029553 Z20.2 Family cheyanne nning surveillance 871280841 Z30.09 Initiation of depot contraception done 3492506889 52290 Z30.104 [id number] MD Gi Rodriguez (DEVELOPING MACHINE OPERATOR) [address] [place] [phone] 0 06/23/2016 15:06:33 06/25/2016 13:29:20 Implantation of subcutaneous contraceptive 457962204 Z30.9 [id number] Jason Coleman [facility] (DEVELOPING MACHINE OPERATOR) [address] [place] [address] [phone] 0 09/22/2016 15:27:08 09/22/2016 17:18:13 Family planning surveillance 954699358 Z30.09 Depressive disorder 3548 9007 F32.81 [id number] Jason Coleman [facility] (DEVELOPING MACHINE OPERATOR) [address] [place] [phone] 0 03/29/2017 16:30:16 03/29/2017 16:38:23 Streptococcal sore throat 83233058 J02.0 [id number] Jason Coleman MD [facility] (DEVELOPING MACHINE OPERATOR) [address] [place] [address] [phone] 0 06/22/2017 13:40:56 06/22/2017 14:34:50 Abscess of left axilla 9579481628 4267258 L02.599 [id number] Jason Coleman MD [facility] (DEVELOPING MACHINE OPERATOR) [address] [place] [address] [phone] 0 07/01/2017 17:05:36 07/01/2017 17:07:07 Family planning surveillance 012469874 Z30.09 Surveillan ce of subcutaneous contraceptive implant done 2418455233 23167 Z30.46 Irregular periods 616929 07 N92.6 [id number] FAIZAN CARNES (Adult Med) [address] [place] [phone] 0 08/29/2018 10:49:50 08/30/2018 10:08:18 Candidiasis of vagina 82120795 B37.3 Complainin g of vaginal itching and increased white, thick vaginal dischargeL ikely a yeast infection, will treat today with fluconazol e 150 mg PO x 1Patient agreed to swab herself in office to make sure treating correctly but swab was found in trash can after she had already left the office Abscess of right axilla 7652140086 5769118 L02.411 Indurated and erythemato us healing abscess [...] Weight loss can help prevent reoccurren ce. [id number] MD Gi Rodriguez (DEVELOPING MACHINE OPERATOR) [address] [place] [phone] 0 08/16/2019 15:15:27 08/17/2019 08:54:34 Candidiasis of vagina 91745971 B37.3 Family cheyanne nning surveillance 605657641 Z30.09 wants removal of nexplanon [id number] MD Gi Rodriguez (DEVELOPING MACHINE OPERATOR) [address] [place] [phone] 0 08/21/2019 15:10:45 08/22/2019 08:46:10 Gynecologic examination 38343240 Z01.419 Exposure t o sexually transmissible disorder 305724826 Z20.2 Removal of subcutaneous contraceptive done 5609431131 91997 Z98.502 [id number] FAIZAN CARNES (Adult Med) [address] [place] [phone] 0 12/21/2019 08:03:44 12/22/2019 09:15:49 Abscess of axilla 26432591 L02.419 History of hidradenit is suppurativ a [...] in 1.5 weeks (due to COVID) SARS-CoV-2 379933939 U07 .1 She recently tested positive for [...] seriously. She verbalized understand ing of such. [id number] FAIZAN CARNES (Adult Med) [address] [place] [phone] 0 03/28/2020 09:21:30 03/29/2020 09:33:25 Restless legs syndrome 70500719 G25.81 Phone visit: Difficulty sleeping x 2 weeks, experienci ng awkward sensation in R leg, only occurs at night, constantly awakens her from sleep, improves with walking around but then comes back when she lays down.Minim al relief w/ getting out of bed to walk/stand , no relief w/ OTC ZZZQuil. Denies a personal or family history of RLS or iron deficiency anemia. [place] Sleepiness score: 11Likely RLS- Discussed possibly ordering labs in the future to assess for anemia.- Prescribed gabapentin 300 mg qhs.- Contact office if symptoms worsen or do not improve. Pain of sa croiliac joint 433425732 M53.3 Intermitte nt pain between R lower [...] 2020 (MEDICAID REPLACEMENT - HMO) Rohini Castellon [id number] Rohini Castellon 08/21/2019 2 [facility] (MEDICAID HMO) Rohini Castellon [id number] Rohini Castellon 12/19/2019 1 [place] [facility] OF PUBLIC AID Rohini Castellon [id number] Rohini Castellon 03/26/2020 1 [facility] (MEDICAID HMO) Rohini Castellon [id number] Rohini Castellon 04/20/2024 1 [place] [facility] Rohini Castellon [id number] Rohini Castellon 11/27/2016 1 [place] Rohini Castellon [id number] Rohini Castellon 06/29/2016 1 [place] [id number] Trino Castellon [id number] Rohini Castellon 06/29/2016 2 [place] WHEN [place] OR MEDIC[place] REPLACEMENT PRIMARY) Rohiniyanely Hernándezuels [id number] Rohini Castellon 11/27/2016 1 [place] [id number] Trino Castellon [id number] Rohini Castellon 08/21/2019 1 [place] [id number] Trino Castellon [id number] Rohini Castellon 08/30/2018 2 [place] [facility] OF PUBLIC AID Rohini Castellon [id number] Rohini Castellon 03/29/2017 3 *SELF PAY* Clotilde [...] chills. Fina Aden MD Attn: Accounting,[address] [place], [address], [facility] 08/29/2018 14:52:37 08/16/2019 text/html Vaginal/Vulvar ProblemReported by [...] nexplanon wants it removed Jason Virginiatisha call, [facility] 08/16/2019 15:54:12 08/21/2019 text/html Vaginal/Vulvar ProblemReported by [...] nexplanon wants it removed Jason Coleman jakub, [facility] 08/21/2019 17:53:02 12/21/2019 text/html ROS as noted [...] or chills. FAIZAN CARNES Attn: Accounting,[address] [place], [address], [facility] 12/21/2019 09:39:13 03/28/2020 text/html ROS as noted [...] during episodes. FAIZAN CARNES Attn: Accounting,[address] [place], [address], [facility] 03/29/2020 08:29:31 OBGyn Episode Ob Episode Information Episode Created Date Number of Fetuses Patient Bloodtype Patient rh Status Prepregnancy Weight lbs Domestic Partner Domestic Partner Phone Father Name Instructor [employer] Status 06/09/19 17 1 CLOSED Fetus Data First Name Last Name Admitted to NICU Weight (g) Sex Living Outcome Pediatric Complications Fetus ID Race Codes Race Delivery Type 3345.24 1 M Full Term 64937 Standard Vaginal Delivery Elder Calculation Initial Elder [...]
--- OUTSIDE RECORDS SUMMARY | 2024-12-15 00:38 | XMS_ITS | Patient Health Record ---
Author Organization [facility] Address [address] [place] [address] Care Team Providers Care Boiling House Hand Name Role Phone Kota Virk Primary Care Provider [phone] Allergies Allergen (clinical drug ingredient) Drug/Non Drug [...] 02/10/2024 Encounters Encounter Location Date Provider Diagnosis [address] [place] [address] 02/10/2024 Kota Virk Physical exam, pre-employment Z02.1 [...] Insured Coverage Start Date Coverage End Date [facility] Claims Department [address] [place] [address] [phone] [id number] Rohini Castellon Self - patient is the insured 4 Medical (General) History Medical History History ICD Code Hidradenitis suppurativa Surgical History Surgery Date(Month/Year) hernia removal Hospitalization History Reason Date(Month/Year)
[2024-12-15] MEDS: ACETAMINOPHEN 500 MG TABLET 1000 MG PO (06:18)
[2024-12-15] MEDS: LACTATED RINGERS 1,000 ML 30 ML IV CONT ×2 (06:20→09:10)
[2024-12-15] MEDS: KETOROLAC 15 MG/ML VIAL (*BKC) IV PUSH (06:22)
[2024-12-15] MEDS: INDOCYANINE GREEN 25 MG VIAL WITH DILUENT 3.75 MG IV PUSH (06:27)
[2024-12-15 06:31] LABS: BEDSIDEPREGUCG Negative (Negative)
--- NOTE | 2024-12-15 07:00 | P.PNAN_ITS ---
Anes - Initial Pre Proc Eval Procedure: Operation Date: 12/15/24 07:30 Proposed Procedures p Robotic Assisted Laparoscopic Cholecystectomy, Possible Open Cholecystectomy - Enrique Bianchi MD Date/Time: 12/15/24 07:00 Surgeon: Enrique Bianchi MD Pre Op Diagnosis: Biliary Colic, Chr Cholecystitis Patient Data Age: 34 Gender: F Height: 1.57 m Weight: 87.7 kg Last Vital Signs Temp 36.5 C 12/15/24 06:00 Pulse 72 12/15/24 06:00 Resp 18 12/15/24 06:00 BP 131/79 12/15/24 06:00 Pulse Ox 100 12/15/24 06:00 O2 Del Method Room Air 12/15/24 06:00 Allergies Allergy/AdvReac Type Severity Reaction Status Date / Time morphine Allergy Itching Verified 12/06/24 14:03 Home Medications ?Medication ?Instructions ?Recorded ?Confirmed ?Type acetaminophen 500 mg capsule 1,000 mg (2 x 500 mg) PO Q6H PRN 07/24/24 12/06/24 Rx pain #30 caps ibuprofen 600 mg tablet 600 mg PO TID PRN pain #30 t abs 07/24/24 12/06/24 Rx hydrocodone 5 mg-acetaminophen 325 1 tablet PO Q12H CA N pain #14 tabs 11/29/24 12/06/24 Rx mg tablet ondansetron 4 mg disintegrating 4 mg PO Q8H PRN nausea and 11/29/24 12/06/24 Rx tablet vomiting #14 tabs Laboratory Tests 12/15/24 06:29 POC Urine HCG, Qual Negative (Negative) Patient hx anesthesia problems: none Family hx anesthesia problems: none Results Review: All pre-operative results and documents have been reviewed as part of the pre- operative evaluation. [facility] Past Medical History Medical History History of gallbladder disease History of hidradenitis suppurativa Surgical History Surgical History History of hernia repair 2009 Family History Family History Mother Hypertension Depression Sibling Diabetes mellitus Social History Social History Smoking status: Never smoker Alcohol intake: current Substance use: current Do You Feel Safe in your Home?: Yes Lack of Transportation: No Lack of Food: Sometimes True Current Housing: I Do Not Have Housing Concerned About Future Housing: YES Difficulty Paying Gas/Electric Bills: YES Difficulty Paying for Meds: YES Currently Unemployed: No Education: High School Diploma/GED Difficulty w/ Childcare or Family Care: No Living arrangements: with family Occupation/Education: occupation Additional occupation/education comments: 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, 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 Informed Consent: The patient's anesthetic plan and its attendant risks and benefits were discussed with the patient/family/POA. Questions were solicited and answers provided to the satisfaction of the patient/family/POA.
--- NOTE | 2024-12-15 07:19 | WPDHPUPDATE1 ---
History and Physical Update Update Date/Time: 12/15/24 07:19 History and Physical has been reviewed, including an updated exam of the patient. There are NO changes in the patient's condition. Risks, benefits, and alternatives have been discussed and questions answered. Patient agrees to proceed with procedure.
[2024-12-15] MEDS: ceFAZolin 2 GM in SODIUM CHLORIDE 0.9% IV 50 ML 100 ML IVPB (07:30)
[2024-12-15] MEDS: LIDO 1%/EPINEPHRINE 1:100,000 20 ML VIAL 30 ML INFILTRATE (08:28)
--- NOTE | 2024-12-15 08:38 | S_PTH ---
PATIENT: Rohini Castellon [facility] U#:[id number] AGE/SX: 34/F ROOM: RE12/15/[address]: Enrique Bianchi MD : 1990 BED: DIS: 12/15/2024 SPEC #: [id number] RECD: 12/15/24 09:45 STATUS: BRENNEN REQ #: [id number] KENNY: 12/15/24 08:[address]: Enrique Bianchi DEPT: [facility] Surgical RECD BY: Saloni Koenig ENTERED: 12/15/24 09:45 SP TYPE: Surgical OTHR DR: Sue Choi, MLeigh Tissues: A - Gallbladder Procedures: Hematoxylin and Eosin Stain Gross and Microscopic Level 3
[2024-12-15] MEDS: fentaNYL CITRATE INJ (*CRX) 100 MCG/2 ML VIAL 25 MCG IV PUSH ×8 (09:15→10:00)
--- NOTE | 2024-12-15 09:15 | P.OP_ITS ---
Procedure Note - Detailed Date of Procedure 12/15/24 Pre-op Diagnosis Biliary Colic, Chr Cholecystitis Post-op Diagnosis Other (Chronic cholecystitis secondary to cholelithiasis) Procedure Performed Robotic assisted laparoscopic cholecystectomy Surgeon Enrique Bianchi MD Director Multimedia Jason Cerrato DISTRIBUTION ENGINEER Anesthesia General Indications Patient is a 34-year-old female who has had a representation to the emergency room for severe right upper quadrant abdominal pain. Her workup included a CT scan which showed thickening of the gallbladder wall and questionable gallstones. She had very typical symptoms of pain in right upper quadrant with eating. She presents now for a robotic assisted laparoscopic cholecystectomy. Findings The patient had mild thickening of the gallbladder wall. Sludge and small gallstones were noted within the gallbladder. There were no adhesions of the stomach, duodenum, colon, or omentum to the gallbladder wall. Description of Procedure After informed consent was obtained patient brought to the operating room she was placed supine position and general endotracheal anesthesia was administered. The abdomen was then prepped and draped usual sterile fashion. Time-out was then performed correctly identifying the patient as well as procedure to be performed. She was given perioperative IV antibiotics. I then started by entering the abdomen left upper quadrant utilizing a 5mm Optiview port. Once inside the abdomen insufflated to adequate pneumoperitoneum to 15mm of mercury. I then placed additional robotic 8mm trocar ports across the mid abdomen under d irect visualization. The 5mm left upper quadrant trocar port was then switched out to 8 10mm bedside physical laboratory assistant laparoscopic trocar port. The gallbladder was visualized and the gallbladder wall was mildly thickened but there were no adhesions of the stomach, duodenum, colon, or omentum to the gallbladder wall. I then had the robot docked to the patient's bedside and attached the robotic arms to the robotic ports. Robotic instruments were then advanced into the abdomen under direct visualization. I then scrubbed out the procedure sent down at the robotic console to perform the dissection. The robotic grasper was used to hold the gallbladder at the dome and the gallbladder was lifted over the right half of the liver towards the right shoulder. A 2nd grasper was then used to hold the gallbladder at the infundibulum and with lateral traction on the infundibular gallbladder I then proceeded to incise the visceral peritoneum along the infundibular gallbladder to identify the cystic duct. The patient had previously been injected with ICG to use firefly. I then engaged the firefly function and I could easily see the cystic duct and a cystic duct and common bile duct junction. I then dissected out the cystic duct circumferentially. Cystic artery was identified and dissected out circumferentially as well with the robotic hook cautery. I checked firefly 1 last time and found to have enough of the cystic duct dissected out away from the cystic duct common bile duct junction. I then placed 2 clips proximally cystic duct and 2 clips distally high on infundibular gallbladder. The cystic duct was then divided with the robotic hook cautery on pure cut. The cystic artery was then clipped and divided in a similar fashion. The gallbladder was then resected off the liver utilized electrocautery. No spillage of any bile or any gallstones. The gallbladder once it was freed from the liver was placed into a Endo-Catch bag and brought out through the left upper quadrant trocar port site. The gallbladder and contents were then sent to pathology for examination. I then inspected the liver bed and the clips in the appeared to be in good position there was no evidence of bleeding or bile leak. I then had the robotic instruments removed from the abdomen in the robot undocked from the patient's bedside. I then scrubbed back into the procedure. We then removed all the trocar ports under direct visualization all port sites appeared hemostatic. The abdomen was allowed to decompress. I then irrigated out the port sites sterile saline solution hemostasis was good. The left upper quadrant 10mm trocar port fascial defect was then closed utilizing a 0 Vicryl suture at the fascial level. The skin edges in all the port sites were then approximated utilizing a running subcuticular 4-0 Monocryl suture. Incisions were then cleaned the skin glue was applied. The patient tolerated the procedure well no complications. All sponges, needles, and instrument counts were correct at the end procedure. EBL was _10__cc. The patient was awakened and taken to recovery in stable and satisfactory condition. Implants None Estimated Blood Loss 10 Drains No Packing No Pathology Yes (Gallbladder contents of the pathology) Complications No immediate complications Condition Stable Disposition PACU [facility] Billing Surgery - Charge Forward: Surgery Billing
[2024-12-15] MEDS: ONDANSETRON INJ 4 MG/2 ML VIAL IV PUSH (09:17)
[2024-12-15] MEDS: oxyCODONE HCL (*CRX) 5 MG TAB IR PO (10:28)
== END 2024-12-15 11:25 | disposition home or self-care (01) ==
PROVIDERS: PCP Internal Medicine Infectious Disease; Visit Provider Surgery
PROC: 0FT44ZZ Resection of Gallbladder, Percutaneous Endoscopic Approach (ICD-10-PCS; CPT 47562; principal; 2024-12-15 07:30)
DX: K80.10 Calculus of gallbladder with chronic cholecystitis without obstruction (principal); E66.9 Obesity, unspecified; Z68.35 Body mass index [BMI] 35.0-35.9, adult
CPT/HCPCS: 47562; S2900; 88304; J0690; A9270; J0330; J1100; J1200; J1885; J2003; J2004; J2250; J2405; J2704; J3010; J7030; J7120

== ENCOUNTER 2024-12-26 17:22 | Emergency (ER) | payer OTHER, SELFPAY ==
--- OUTSIDE RECORDS SUMMARY | 1999-03-19 05:45 | XMS_ITS | Continuity of Care Document ---
Author Organization [facility] Address [address] [place] [address] Phone Care Team Providers Care Pantry Cook Name Role Phone Henry Zavala Unavailable Unavailable Advance Directives Directive Yes / No Effective Date File Name No Information Encounters Encounter Description Practice Location Reason(s) For Visit Diagnoses Date Provider Providers Copied on Encounter [facility], [address], [place], [place], [address], [place] tel:[phone] SEC [facility] No Information 9-200 0 Sally Figueroa. [address] [facility] , [address], [place], [address], [place]. tel:[phone] Family History Family Member Type Diagnosis Age At Onset No Information Payers Payer name Insurance type Covered democrat ID Authoriza tion(s) Medicaid [facility] [id number] Social History Type Description Quantity Date Captured Comments Sex Female Smoking Status No Information Chief Complaint And Reason For Visit No Information Reason For Referral Reason For Referral No Information History Of Present Illness Encounter Date Complaint History Of Prese nt Illness No Information Functional Status Date Functional Assessmen t No Information Instructions Date Instruction Additional Infor mation No Information Assessments Type Assessment Date No Information Patient Care Teams Name Effective Dates (start - stop) Status Members No Information
--- OUTSIDE RECORDS SUMMARY | 1999-03-19 05:45 | XMS_ITS | Continuity of Care Document ---
Author Organization [facility] Address [address] [place] [address] Phone Care Team Providers Care Mesh Cutter Name Role Phone Henry Zavala Unavailable Unavailable Advance Directives Directive Yes / No Effective Date File Name No Information Encounters Encounter Description Practice Location Reason(s) For Visit Diagnoses Date Provider Providers Copied on Encounter [facility], [address], [place], [place], [address], [place] tel:[phone] SEC [facility] No Information 9-200 0 Sally Figueroa. [address] [facility] , [address], [place], [address], [place]. tel:[phone] Family History Family Member Type Diagnosis Age At Onset No Information Payers Payer name Insurance type Covered democrat ID Authoriza tion(s) Medicaid [facility] [id number] Social History Type Description Quantity Date Captured [...]
--- OUTSIDE RECORDS SUMMARY | 2014-10-19 11:33 | XMS_ITS | Continuity of Care Document ---
Author Organization [facility] Address [address] [place] [address] Phone Care Team Providers Care It Security Analyst Name Role Phone Unavailable Unavailable Unavailable Medications [...] Diagnoses Date Provider Providers Copied on Encounter [facility] , [address], [place], [place], [address], tel:[phone] [facility] No Information No Information [facility] , [address], [place], [place], [address], tel:[phone] [facility] examination or test, positive resultAbsence of menstruation Nurse Registered. [address], [place], [place], [address], . tel:[phone] Referring Provider: Registered Nurse, [address], [place], [address]. tel:[phone] Family History Family Member Type Diagnosis Age [...] OB US < 14 Weeks, Single Fetus ([id number]), Ordered on: Ordered History Of Present Illness Encounter Date Complaint History Of Prese nt Illness No Information Functional Status Date Functional Assessmen t No Information Instructions Date Instruction Additional Infor mation No Information Assessments Type Assessment Date No Information Patient Care Teams Name Effective Dates (start - stop) Status Members No Information
--- OUTSIDE RECORDS SUMMARY | 2014-10-19 11:33 | XMS_ITS | Continuity of Care Document ---
Author Organization [facility] Address [address] [place] [address] Phone Care Team Providers Care Supervisor Composing Room Name Role Phone Unavailable Unavailable Unavailable Medications [...] Diagnoses Date Provider Providers Copied on Encounter [facility] , [address], [place], [place], [address], tel:[phone] [facility] No Information No Information [facility] , [address], [place], [place], [address], tel:[phone] [facility] examination or test, positive resultAbsence of menstruation Nurse Registered. [address], [place], [place], [address], . tel:[phone] Referring Provider: Registered Nurse, [address], [place], [address]. tel:[phone] Family History Family Member Type Diagnosis Age At Onset No Information Payers Payer name Insurance type Covered green party ID Authoriza tion(s) No Information Social History Type Description Quantity Date Captured Comments Sex Female Smoking Status No Information Chief Complaint And Reason For Visit No Information Reason For Referral Reason For Referral No Information Plan Of Treatment Date Type Action Status Future Order: Radiology Order OB US < 14 Weeks, Single Fetus ([id number]), Ordered on: Ordered History Of Present Illness Encounter Date Complaint History Of Prese nt Illness No Information Functional Status Date Functional Assessmen t No Information Instructions Date Instruction Additional Infor mation No Information Assessments Type Assessment Date No Information Patient Care Teams Name Effective Dates (start - stop) Status Members No Information
[2024-12-26 17:59] VITALS: BP 129/84; PULSE 88; RESP 15; TEMP 37.2; O2SAT 100
--- OUTSIDE RECORDS SUMMARY | 2024-12-26 18:00 | XMS_ITS | Clinical Summary ---
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 Gender Identity Not on file Sexual Orientation Not on file Obstetrics History Last Filed Vital Signs Vital Sign Reading Time Taken Comments Blood Pressure 125/96 04/30/2023 11:01 AM ZIPPER SEWING MACHINE OPERATOR Pulse 74 04/30/2023 11:01 AM ZIPPER SEWING MACHINE OPERATOR Temperature 36.4 C (97.5 F) 04/30/2023 11:01 AM ZIPPER SEWING MACHINE OPERATOR Respiratory Rate 16 04/30/2023 11:01 AM ZIPPER SEWING MACHINE OPERATOR Oxygen Saturation 100% 04/30/2023 11:01 AM ZIPPER SEWING MACHINE OPERATOR Inhaled Oxygen Concentration - - Weight 83 kg (183 lb) 04/30/2023 11:01 AM ZIPPER SEWING MACHINE OPERATOR Height 157.5 cm (5' 2) 04/30/2023 11:01 AM ZIPPER SEWING MACHINE OPERATOR Body Mass Index 33.47 04/30/2023 11:01 AM ZIPPER SEWING MACHINE OPERATOR Plan of Treatment Health Maintenance Due [...] patient's age to complete this topic Insurance [facility] Care Teams Software Asset Management Analyst Relationship Specialty Start Date End Date No, Physician PCP - General 04/29/23
--- OUTSIDE RECORDS SUMMARY | 2024-12-26 18:00 | XMS_ITS | Clinical Summary ---
Author Organization [facility] Address [address] [place] [address] Care Team Providers Care Business Process Manager Name Role Phone None, Provider MD Primary [...] Comments Blood Pressure 148/71 02/20/2023 1:21 PM PASTA MAKER Pulse 89 02/20/2023 1:21 PM PASTA MAKER Temperature 36.4 C (97.5 F) 02/20/2023 1:21 PM PASTA MAKER Respiratory Rate 18 02/20/2023 1:21 PM PASTA MAKER Oxygen Saturation 100% 02/20/2023 1:21 PM PASTA MAKER Inhaled Oxygen Concentration - - Weight 86.5 kg (190 lb 11.2 oz) 02/20/2023 1:21 PM PASTA MAKER Height 157.5 cm (5' 2) 02/20/2023 1:21 PM PASTA MAKER Body Mass Index 34.88 02/20/2023 1:21 PM PASTA MAKER Plan of Treatment Health Maintenance Due Date [...] patient's age to complete this topic Insurance [employer] Care Teams Business Process Manager Relationship Specialty Start Date End Date None, Provider, PCP - General 09/02/21
--- OUTSIDE RECORDS SUMMARY | 2024-12-26 18:00 | XMS_ITS | Patient Health Record ---
Author Organization [facility] Address [address] [place] [address] Care Team Providers Care Animal Park Code Enforcement Officer Name Role Phone Kota Virk Primary Care Provider [phone] Allergies Allergen (clinical drug ingredient) Drug/Non Drug [...] 02/10/2024 Encounters Encounter Location Date Provider Diagnosis [address] [place] [address] 02/10/2024 Kota Virk Physical exam, pre-employment Z02.1 [...] Insured Coverage Start Date Coverage End Date [facility] Claims Department [address] [place] [address] [phone] [id number] Rohini Castellon Self - patient is the insured 4 Medical (General) History Medical History History ICD Code Hidradenitis suppurativa Surgical History Surgery Date(Month/Year) hernia removal Hospitalization History Reason Date(Month/Year)
--- OUTSIDE RECORDS SUMMARY | 2024-12-26 18:00 | XMS_ITS | Data Portability ---
Author Organization [facility] yMah Address [address] [facility] [place] [address] Care Team Providers Care Import Clerk Name Role Phone TIFFANY RICHTER Primary Care Provider [phone] Assessment Encounter Date Assessment Date Assessment LastModified [...] DO Not Attach Compendium, Do Not Delete/merge, [id number] 0 18:20:03 pap, IG + HPV, cervical 2019 020 [facility], [address] [place] [address], [address], [place], [address], 0 10:36:52 bacterial vaginosis panel, vaginal 2019 020 JESSICA [facility] (Centralized Electronic Ordering - All Locations), Patient Can Go To The Location Of Their Choice, [id number] 0 06:11:23 culture, vaginal/r ectal, streptoco ccus group B 2019 020 JESSICA [facility] (Centralized Electronic Ordering - All Locations), Patient Can Go To The Location Of Their Choice, [id number] 0 06:11:23 Referral None recorded. Procedures None recorded. Surgeries None recorded. Imaging None recorded. Medication Orders Medrol (Jabier) 4 mg tablets in a dose pack 2020 021 [facility] #04007, [address] [place] [address], [id number], 1 13:05:36 gabapenti n 300 mg capsule [address] [facility] #43856, [address] [place] [address], [id number], 1 08:25:12 ondansetr on 8 mg disintegr ating tablet 2019 [facility] #09247, [address] [place] [address], [id number], 1 12:14:58 cephalexi n 500 mg capsule [address] [facility] #37510, [address] [place] [address], [id number], 1 14:14:15 ibuprofen 800 mg tablet [address] [facility] #15610, [address] [place] [address], [id number], 1 14:14:08 multivita min tablet 2019 020 [facility] #57189, [address] [place], [place], [id number], 0 08:41:08 Calcium with Vitamin D 600 mg-10 mcg (400 unit) tablet 2019 [facility] #11030, [address] [place], [place], [id number], 0 08:41:04 fluconazo le 150 mg tablet 2019 020 [facility] #26187, [address] [place], [place], [id number], 0 15:33:22 nystatin 100,000 unit/gram topical cream 2019 020 [facility] #97182, [address] [place], [place], [id number], 0 15:33:54 Nuvessa 1.3 % (65 mg/5 gram) vaginal gel 2019 020 [facility] #[id number] [place], [place], [id number], 0 08:39:13 fluconazo le 150 mg tablet 2018 019 [email or web address] Not available 0 15:33:22 chlorhexi dine gluconate 4 % topical liquid 2018 019 [email or web address] Not available 0 15:23:21 Clindagel 1 % topical gel, once daily 2018 019 [email or web address] Not available 0 15:23:18 Patient TargetsNo targets recorded. Patient Instructions Encounter Date Encounter Id Patient Instructions Last Modified By Organization Details Last Modified Time 08/29/2018 [id number] I have reviewed the provider's note and I agree with the documented assessment and plan. HLF [email or web address] Not available 08/29/2018 14:52:34 08/16/2019 [id number] vaginal yeast infection: care instructions [email or web address] Not [...] diffe renti ation . Not Available [facility] ([facility]) [address] [facility], [place], [address], 08/25/2019 10:36:52 08/21/19 20 08/25/2019 pap, IG + HPV, cervi césar diagnosis: Dasha t NEGAT RENÉ FOR INTRA EPITH ELIAL LESIO N OR POPEYE DORADO . Not Available [facility] ([facility]) [address] [place], [address], 08/25/2019 10:36:52 08/21/19 20 08/25/2019 pap, IG + HPV, cervi césar specimen adequacy: Dasha t Satis facto ry for evalu ation . Endoc ervic al and/o r squam ous metap lasti c cells (endo cervi césar compo nent) are prese nt. Not Available [facility] ([facility]) [address] [facility], [place], [address], 08/25/2019 10:36:52 08/21/19 20 08/25/2019 pap, IG + HPV, cervi césar clinician provided ICD10: Dasha lund Z01.4 19 Not Available [facility] ([facility]) [address] [place], [address], 08/25/2019 10:36:52 08/21/19 20 08/25/2019 pap, IG + HPV, cervi césar performed by: Dasha Ventura Cytot mp lund Not Available [facility] ([facility]) [address] [place], [address], 08/25/2019 10:36:52 08/21/19 20 08/25/2019 pap, IG + HPV, cervi césar . . Not Available [facility] ([facility]) [address] [place], [address], 08/25/2019 10:36:52 08/21/19 20 08/25/2019 pap, IG [...] ts do occur . Not Available [facility] ([facility]) [address] [place], [address], 08/25/2019 10:36:52 08/21/19 20 08/25/2019 pap, IG + HPV, cervi césar test methodology: Dasha t This liqui d based ThinP rep(R ) pap test was scree miriam with the use of an image guide d systmilton m. Not Available [facility] ([facility]) [address] [place], [address], 08/25/2019 10:36:52 08/21/19 20 08/24/2019 bacte rial vagin osis panel , vagin al trich vag by ISABEL Negati ve negati ve Not Available [facility] ([facility]) [address] [place], [address], 08/29/2019 06:11:23 08/21/19 20 08/24/2019 bacte rial vagin osis panel , vagin al chlamydia trachomatis, ISABEL Negati ve negati ve Not Available [facility] ([facility]) [address] [place], [address], 08/29/2019 06:11:23 08/21/19 20 08/24/2019 bacte rial vagin osis panel , vagin al neisseria gonorrhoeae, ISABEL Negati ve negati ve Not Available [facility] ([facility]) [address] [place], [address], 08/29/2019 06:11:23 08/21/19 20 08/28/2019 bacte rial vagin osis panel , vagin al hsv 1 ISABEL Negati ve negati ve Not Available [facility] ([facility]) [address] [place], [address], 08/29/2019 06:11:23 08/21/19 20 08/28/2019 bacte rial vagin osis panel , vagin al hsv 2 ISABEL Negati ve negati ve Not Available [facility] ([facility]) [address] [place], [address], 08/29/2019 06:11:23 08/21/19 20 08/29/2019 bacte rial vagin osis panel , vagin al atopobium vaginae High - 2 score abnormal Not Available [facility] ([facility]) [address] [place], [address], 08/29/2019 06:11:23 08/21/1908/29/2019 bacte rial vagin osis panel , vagin al bvab 2 Modera te - 1 score Not Available [facility] ([facility]) [address] [place], [address], 08/29/2019 06:11:23 08/21/19 20 08/29/2019 bacte rial [...] is not neces miranda. Not Available [facility] ([facility]) [address] [facility], [place], [address], 08/29/2019 06:11:23 08/21/19 20 08/29/2019 bacte rial vagin osis panel , vagin al luz albicans, ISABEL Negati ve negati ve Not Available [facility] ([facility]) [address] [place], [address], 08/29/2019 06:11:23 08/21/19 20 08/29/2019 bacte rial vagin osis panel , vagin al luz glabrata, ISABEL Negati ve negati ve Not Available [facility] ([facility]) [address] [facility], [place], [address], 08/29/2019 06:11:23 08/21/19 20 08/24/2019 cultu re, [...] n is noted . Not Available [facility] ([facility]) [address] [facility], [place], [address], 08/29/2019 06:11:23 08/21/1908/21/2019 urina lysis , dipst [...] DO Not Attach Compendium, Do Not Delete/merge, [id number] 08/21/2019 15:36:46 08/21/19 20 08/21/2019 urina lysis , dipst ick Specific Muir 1.025 Not Available In-Off ice Order Internal Use Only DO Not Attach Compendium DO Not Attach Compendium, Do Not Delete/merge, [id number] 08/21/2019 15:36:46 08/21/19 20 08/21/2019 urina lysis , dipst ick Ketone Negati ve Not Available In-Office Order Internal Use Only DO Not Attach Compendium DO Not Attach Compendium, Do Not Delete/merge, [id number] 08/21/2019 15:36:46 08/21/19 20 08/21/2019 urina lysis , dipst ick Bilirubin Negati ve Not Available In-Office Order Internal Use Only DO Not Attach Compendium DO Not Attach Compendium, Do Not Delete/merge, [id number] 08/21/2019 15:36:46 08/21/19 20 08/21/2019 urina lysis , dipst ick Glucose Negati ve Not Available In-Office Order Internal Use Only DO Not Attach Compendium DO Not Attach Compendium, Do Not Delete/merge, [id number] 08/21/2019 15:36:46 09/02/19 25 09/01/2024 XR, chest No observ ation record ed. [place] [address], [place], [address], 09/04/2024 08:43:09 Result Notes None recorded. Problems Name Problem SNOMED Code Status Onset Date Resolution Date Notes Provider Name and Address Organization Details Recorded Time Streptoc occal sore throat 46645167 Completed 201608/29/2018 FAIZAN CARNES Attn: Jigar forrest,[address] [place], [address], [facility] 9 11:58:36 Chlamydi al infectio n [id number] Completed 201608/29/2018 FAIZAN CARNES Attn: Jigar forrest[address] [facility] [place], [address] [place] [address] 2, [place] - [facility] 9 11:58:33 Bacteria l vaginosi s 985793964 Completed 201903/25/2020 FAIZAN CARNES Attn: Jigar forrest,[address] [facility], [place], [place], [address] [place] [address] 2, [place] [facility] 1 14:14:01 Hidraden itis suppurat jael 84930758 Active 2019 FAIZAN CARNES Attn: Jigar forrest,[address] [facility], [place], [place], [address] [place] [address] 2, [place] [facility] 0 14:44:56 Abscess of axilla 65594577 Active [address] Kamara, drained in the ER. Drainage and excision of bIlateral axillary abscesses in the OR on 09/28/2019 . FAIZAN CARNES Attn: Jigar forrest,[address] [facility], [place], [place], [address] [place] [address] 2, [place] [facility] 0 08:46:37 Hypokale tom 57291275 Active 2019 FAIZAN CARNES Attn: Jigar forrest,[address] [place], [place], [address] [place] [address] 2, [place] [facility] 0 15:58:49 Leukopen ia 38863385 Active 2019 FAIZAN CARNES Attn: Jigar forrest,[address] [facility], [place], [place], [address] [place] [address] 2, [place] [facility] 0 15:58:54 Liver enzymes level above referenc e range 077454282 Active 2019 FAIZAN CARNES Attn: Jigar forrest,[address] [facility], [place], [place], [address] [place] [address] 2, [place] [facility] 0 15:59:03 Notes:Last known vaccine was the flu shot in 2016. Problem Notes None recorded. Procedures Surgical History Date Name Laterality Status Provider Name and Address Organization Details Recorded Time 12/16/19 25 Cholecystectomy completed Sue Choi MD Attn: Accounting,[address] [facility], [place], [address], [place] [facility] 12/15/2024 12:57:45 09/28/19 20 incision and drainage of abscess completed FAIZAN CARNES Attn: Accounting,[address] [facility], [place], [address], [place] [facility] 10/06/2019 08:47:23 08/21/19 20 Control Implant Removal completed Jason Coleman [place] - [place] 08/21/2019 17:51:26 08/21/19 20 Date of Last Pap Smear completed Leslie Raphael [place] - [facility] 08/21/2019 15:35:46 06/24/19 17 Control Implant Insertion completed Aaliyah Shepard [place] 06/23/2016 16:53:26 I&d abscess simple/single completed Rox Torres MA [place] - [facility] 08/29/2018 11:15:35 Imaging Results None recorded. Procedure Notes None recorded. Medical Equipment None Reported. Allergies Allergen ID Allergen Name Allergen Category Reaction Reaction Severity Criticality Documentation Date Start Date Code Code System Note Provider Name and Address Organization Details Recorded Time 643643 latex environme nt,medica tion rash moderate Not available 08/16/2019 88929 91 RxNorm yeast infec tion Rox Swann [place] null, [place] 0 15:22:57 Medications Name Sig [...] propionate 50 mcg/actuati on nasal spray,suspe nsion Sproul 1 spray every day by intranasa l [...] DateTime 03/28/2020 160.02 cm Rox Torres MA [facility] 2020 12:14:49 Date Recorded Body height Body mass index (BMI) Body weight Provider Name and Address Organization Details Last Updated DateTime 08/16/2019 160.02 cm 37.4 kg/m2 23718.99 g Rox Swann MA [facility] 08/16/2019 15:17:56 Date Recorded Body height Body mass index (BMI) Body weight Systolic And Diastolic Provider Name and Address Organization Details Last Updated DateTime 08/21/2019 160.02 cm 37.2 kg/m2 58760.4 g 122/78 mm[Hg] Leslie Raphael MA [facility] 08/21/2019 15:32:36 Date Recorded Body height Body mass index (BMI) Body weight Heart rate Oxygen saturation Oxygen saturation in Arterial blood by Pulse oximetry Body temperature Systolic And Diastolic Provider Name and Address Organization Details Last Updated DateTime 9 160.02 cm 33.4 kg/m2 54037.1 7 g 85 /min 98 % 98 % 98.9 [degF] 106/64 mm[Hg] Rox Torres MA [facility] 9 11:18:17 Date Recorded Body height Provider Name an d Address Organization Details Last Updated DateTime 12/21/2019 160.02 cm Rox Torres MA [facility] 2019 08:40:51 Social History Question Answer Notes LastModified by Organizat ion Details LastModified Time Tobacco Smoking Status Never Smoker Carolee Rai RN null, [facility] 04/23/2016 14:47:38 Do You Have An Advance Directive? No [email or web address] Information not available 06/08/2016 Is Blood Transfusion Acceptable In An Emergency? Yes Information not available 06/08/2016 What Is Your Level Of Caffeine Consumption? Occasional [email or web address] Information not available 06/08/2016 How Much Tobacco Do You Chew? None Information not available 06/08/2016 What Type Of Diet Are You Following? REGULAR Information not available 06/08/2016 Which Illicit Or Recreational Drugs Have You Used? Denies [email or web address] Information not available 06/08/2016 Education 12 [email or web address] Information no t available 06/08/2016 Live Alone Or With Others? With Others [email or web address] Information not available 06/08/2016 What Was The Date Of Your Most Recent Tobacco Screening? 03/28/2020 Information not available 03/28/2020 How Many Children Do You Have? 1 [email or web address] Information not available 06/08/2016 Performs Monthly Self-breast Exam? No [email or web address] Information no t available 06/08/2016 Do You Use Protection During Sex? Usually [email or web address] Information not available 08/05/2016 What Is Your Relationship Status? Single [email or web address] Information not available 06/08/2016 Seat Belts Used Routinely Yes [email or web address] Information not available 06/08/2016 Are You Sexually Active? Yes [email or web address] Information not available 06/08/2016 How Much Tobacco Do You Smoke? No Information not available 04/23/2016 General Stress Level Medium [email or web address] Information not available 06/08/2016 Do You Use Sunscreen Routinely? No [email or web address] Information not available 06/08/2016 On What Date Was Tobacco Cessation Counseling Provided? 03/28/2020 Information not available 03/28/2020 How Many Years Have You Smoked Tobacco? 0 Information not available 04/23/2016 Sex: Female Functional Status Question Answer Note LastModified by Organizat ion Details LastModified Time What is your level of alcohol consumption? None [email or web address] Information not available 06/08/2016 Do you or have you ever used smokeless tobacco? Never used smokeless tobacco Information not available 08/16/2019 Are you currently employed? 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 Never used electronic cigarettes Information not available 08/16/2019 What is your exercise level? Occasional [email or web address] Information not available 06/08/2016 Mental Status None recorded. Family History Relationship Description Onset Age of this Age Resolved Age Notes LastModified by Organization Details LastModified Time Brother Diabetes mellitus 21 strice Not available 2016 14:45:56 Mother Hypertensive disorder strice Not available 2016 14:46:32 Father Hypertensive disorder strice Not available 2016 14:47:21 Medical History Condition Response Coronary Artery Disease N Other N High Blood Pressure N Atrial Fibrillation N Breast Cancer N Depression N COPD N Blood Clots N Lung Disease N Breast Problem N Anesthesia Complications N Headaches/Migraines N Anxiety Disorder N Muscle, Joint, or Bone Problems N Infertility N Polyps N Acid Reflux (GERD) N Cancer N Stroke N Endometriosis N High Cholesterol N Liver Disease N Headaches N Kidney or Bladder Problems N Thyroid Problems N GI Problems N Acne N Eating Disorder N Skin Problems N Anemia N Heart Attack (NE) N Ovarian Cancer N Diabetes N Blood [...] ICD10 Code Diagnosis IMO Codes Diagnosis Note [id number] MD Gi Rivera (Adult Med) [address] [place] [address] 04/23/2016 14:28:36 04/23/2016 15:40:09 Vaginal discharge 197378028 N89.8 [id number] MD Gi Rodriguez (JANITOR CUSTODIAN) [address] [place] [address] 06/08/2016 16:29:02 06/15/2016 17:50:26 Exposure to sexually transmissible disorder 725299162 Z20.2 Family cheyanne nning surveillance 868325263 Z30.09 Initiation of depot contraception done 4214879224 95270 Z30.851 [id number] MD Gi Rodriguez (JANITOR CUSTODIAN) [address] [place] [address] 06/23/2016 15:06:33 06/25/2016 13:29:20 Implantation of subcutaneous contraceptive 193370127 Z30.9 [id number] MD iG Rodriguez (JANITOR CUSTODIAN) [address] [place] [address] 09/22/2016 15:27:08 09/22/2016 17:18:13 Family planning surveillance 068759089 Z30.09 Depressive disorder 3548 9007 F32.81 [id number] [facility] ([facility]ANIT[facility] CUSTOD[facility]) [address] [place] [address] 03/29/2017 16:30:16 03/29/2017 16:38:23 Streptococcal sore throat 96045858 J02.0 [id number] MD Gi Rodriguez (JANITOR CUSTODIAN) [address] [place] [address] 0 06/22/2017 13:40:56 06/22/2017 14:34:50 Abscess of left axilla 0069554633 3152885 L02.247 [id number] MD [facility] (JANITOR CUSTODIAN) [address] [place] [address] 07/01/2017 17:05:36 07/01/2017 17:07:07 Family planning surveillance 819982826 Z30.09 Surveillan ce of subcutaneous contraceptive implant done 5434749057 86409 Z30.46 Irregular periods 465709 07 N92.6 [id number] FAIZAN CARNES (Adult Med) [address] [place] [address] 08/29/2018 10:49:50 08/30/2018 10:08:18 Candidiasis of vagina 63759618 B37.3 Complainin g of vaginal itching and increased white, thick vaginal dischargeL ikely a yeast infection, will treat today with fluconazol e 150 mg PO x 1Patient agreed to swab herself in office to make sure treating correctly but swab was found in trash can after she had already left the office Abscess of right axilla 6377501294 4401477 L02.411 Indurated and erythemato us healing abscess [...] Weight loss can help prevent reoccurren ce. [id number] MD Gi Rodriguez (JANITOR CUSTODIAN) [address] [place] [address] 0 08/16/2019 15:15:27 08/17/2019 08:54:34 Candidiasis of vagina 96561670 B37.3 Family cheyanne nning surveillance 622334922 Z30.09 wants removal of nexplanon [id number] MD Gi Rodriguez (JANITOR CUSTODIAN) [address] [place] [address] 0 08/21/2019 15:10:45 08/22/2019 08:46:10 Gynecologic examination 21741812 Z01.419 Exposure t o sexually transmissible disorder 916299986 Z20.2 Removal of subcutaneous contraceptive done 5242609010 23190 Z98.740 [id number] FAIZAN CARNES (Adult Med) [address] [place] [address] 0 12/21/2019 08:03:44 12/22/2019 09:15:49 Abscess of axilla 05122810 L02.419 History of hidradenit is suppurativ a and multiple skin abscesses excised in OR by Dr. Urrutiaing of recurrent abscess in her R axilla [...] in 1.5 weeks (due to COVID) SARS-CoV-2 156152427 U07 .1 She recently tested positive for [...] seriously. She verbalized understand ing of such. [id number] FAIZAN CARNES [facility] (Adult Med) [address] [place] [phone] 03/28/2020 09:21:30 03/29/2020 09:33:25 Restless legs syndrome 55477871 G25.81 Phone visit: Difficulty sleeping x 2 weeks, experienci ng awkward sensation in R leg, only occurs at night, constantly awakens her from sleep, improves with walking around but then comes back when she lays down.Minim al relief w/ getting out of bed to walk/stand , no relief w/ OTC ZZZQuil. Denies a personal or family history of RLS or iron deficiency anemia. [place] Sleepiness score: 11Likely RLS- Discussed possibly ordering labs in the future to assess for anemia.- Prescribed gabapentin 300 mg qhs.- Contact office if symptoms worsen or do not improve. Pain of sa croiliac joint 206702293 M53.3 Intermitte nt pain between R lower back and buttocks, notices pain when walking, bending or lifting for extended periods of time. Pain improves w/ rest.Omar s neuropathy symptoms between or during episodes. [...] ID Guarantor Name 11/07/2017 PAYMENT PLAN Rohini Castellon 06/24/2021 1 [employer] BET[place] - [place] ON OR AFTER 2020 (MEDICAID REPLACEMENT - HMO) Rohini Castellon [id number] Rohini Castellon 08/21/2019 2 [facility] (MEDICAID HMO) Rohini Castellon [id number] Rohini Castellon 12/19/2019 1 [place] Rohini Castellon [id number] Rohini Castellon 03/26/2020 1 [facility] (MEDICAID HMO) Rohini Castellon [id number] Rohini Castellon 04/20/2024 1 [place] Rohini Castellon [id number] Rohini Castellon 11/27/2016 1 [place] Rohini Castellon [id number] Rohini Castellon 06/29/2016 1 [place] [id number] Trino Castellon [id number] Rohini Castellon 06/29/2016 2 [place] WHEN MEDICARE OR MEDICARE REPLACEMENT PRIMARY) Rohini Castellon [id number] Rohini Castellon 11/27/2016 1 [place] [id number] Trino Castellon [id number] Rohini Castellon 08/21/2019 1 [place] [id number] Trino Castellon [id number] Rohini Castellon 08/30/2018 2 [place] Rohini Castellon [id number] Castellon 03/29/2017 3 *SELF PAY* Clotilde Castellon [...] chills. Fina Aden MD Attn: Accounting,[address] [place], [address], [facility] 08/29/2018 [...] AAF with nexplanon wants it removed Jason call, [facility] 08/16/2019 15:54:12 08/21/2019 text/html Vaginal/Vulvar ProblemReported by PatientHPIFor associated symptoms, patient reportsvaginal itchingandvulvar itching/irritationbut reportsno vaginal irritation,no vaginal pain,no vulvar swelling/erythema,no vulvar pain,no vulvar lesions,no pelvic pain,no dyspareunia,no dyruria,no fever, andno abdominal pain. For location, patient reportsvulva. For onset/timing, patient reportsafter intercourse. For quality, patient reportslolisingyusef reynolds. For context, patient reportssexually activeandcurrent contraception: (nexplanon). 26 yo AAF with nexplanon wants it removed Jason Coleman jakub, [facility] 08/21/2019 17:53:02 12/21/2019 text/html ROS as noted [...] or chills. FAIZAN CARNES Attn: Accounting,[address] [facility], [place], [address], [facility] - [facility] 12/21/2019 09:39:13 03/28/2020 text/html ROS as noted [...] during episodes. FAIZAN CARNES Attn: Accounting,[address] [place], [address], [facility] 03/29/2020 08:29:31 OBGyn Episode Ob Episode Information Episode Created Date Number of Fetuses Patient Bloodtype Patient rh Status Prepregnancy Weight lbs Domestic Partner Domestic Partner Phone Father Name Novelty Twister Operator Status 06/09/19 17 1 CLOSED Fetus Data First Name Last Name Admitted to NICU Weight (g) Sex Living Outcome Pediatric Complications Fetus ID Race Codes Race Delivery Type 3345.24 1 M Full Term 85588 Standard Vaginal Delivery Elder Calculation Initial Elder [...]
[2024-12-26 20:17] VITALS: BP 140/90; PULSE 87; RESP 17; TEMP 36.9; O2SAT 100
--- OUTSIDE RECORDS SUMMARY | 2024-12-26 20:22 | XMS_ITS | Clinical Summary ---
Author Organization [facility] Address [address] [place] [address] Care Team Providers Care Advertising Statistical Clerk Name Role Phone None, Provider MD Primary [...] Comments Blood Pressure 148/71 02/20/2023 1:21 PM BAD WORK GATHERER Pulse 89 02/20/2023 1:21 PM BAD WORK GATHERER Temperature 36.4 C (97.5 F) 02/20/2023 1:21 PM BAD WORK GATHERER Respiratory Rate 18 02/20/2023 1:21 PM BAD WORK GATHERER Oxygen Saturation 100% 02/20/2023 1:21 PM BAD WORK GATHERER Inhaled Oxygen Concentration - - Weight 86.5 kg (190 lb 11.2 oz) 02/20/2023 1:21 PM BAD WORK GATHERER Height 157.5 cm (5' 2) 02/20/2023 1:21 PM BAD WORK GATHERER Body Mass Index 34.88 02/20/2023 1:21 PM BAD WORK GATHERER Plan of Treatment Health Maintenance Due Date [...] patient's age to complete this topic Insurance [place] Care Teams Advertising Statistical Clerk Relationship Specialty Start Date End Date None, Provider, PCP - General 09/02/21
--- OUTSIDE RECORDS SUMMARY | 2024-12-26 20:22 | XMS_ITS | Clinical Summary ---
Author Organization [facility] Address [address] [place] [address] Care Team Providers Care Washing And Screening Plant Supervisor Name Role Phone No, Physician Primary Care Provider [phone] Allergies No known active allergies Medications doxycycline [...] on file Legal Sex Female 10:07 AM ADVISORY SERVICES ASSOCIATE Gender Identity Not on file Sexual Orientation Not on file Obstetrics History Last Filed Vital Signs Vital Sign Reading Time Taken Comments Blood Pressure 125/96 04/30/2023 11:01 AM ADVISORY SERVICES ASSOCIATE Pulse 74 04/30/2023 11:01 AM ADVISORY SERVICES ASSOCIATE Temperature 36.4 C (97.5 F) 04/30/2023 11:01 AM ADVISORY SERVICES ASSOCIATE Respiratory Rate 16 04/30/2023 11:01 AM ADVISORY SERVICES ASSOCIATE Oxygen Saturation 100% 04/30/2023 11:01 AM ADVISORY SERVICES ASSOCIATE Inhaled Oxygen Concentration - - Weight 83 kg (183 lb) 04/30/2023 11:01 AM ADVISORY SERVICES ASSOCIATE Height 157.5 cm (5' 2) 04/30/2023 11:01 AM ADVISORY SERVICES ASSOCIATE Body Mass Index 33.47 04/30/2023 11:01 AM ADVISORY SERVICES ASSOCIATE Plan of Treatment Health Maintenance Due Date [...] patient's age to complete this topic Insurance [facility] Care Teams Washing And Screening Plant Supervisor Relationship Specialty Start Date End Date No, Physician PCP - General 04/29/23
--- NOTE | 2024-12-26 20:31 | ED_ITS ---
HPI - Skin/Abscess/Foreign Bdy General Chief complaint: Skin/Abscess/Foreign Body Stated complaint: boil under arm for 7 days Time Seen by Provider: 12/26/24 20:12 Source: patient Mode of arrival: ambulatory Limitations: no limitations History of Present Illness HPI narrative: This is a 34-year-old female with history of hidradenitis suppurative who presents to the ED for abscess. Patient states that she is had a developing abscess to her right armpit for the past few days. She has had this multiple times in the past most recently couple months ago. She has not been on antibiotics in the last couple weeks. Denies fevers, chills, spreading erythema. Related Data Allergies Allergy/AdvReac Type Severity Reaction Status Date / Time morphine Allergy Itching Verified 12/26/24 18:02 Review of Systems Review of Systems: Gen.: Denies fevers or chills Eyes: Denies eye pain or visual change ENT: Denies congestion Respiratory: Denies shortness of breath or cough CV: Denies chest pain or palpitations GI: Denies abdominal pain nausea, emesis or diarrhea denies burning, urgency, frequency or hematuria Musculoskeletal: Denies back pain or muscle pain Neuro: Denies numbness, tingling, weakness or focal weakness Skin: As per HPI Except as documented, all other systems reviewed and negative FOR[facility]LY [facility] Past Medical History Medical History History of gallbladder disease History of hidradenitis suppurativa Surgical History Surgical History History of hernia repair 2009 Family History Family History Mother Hypertension Depression Sibling Diabetes mellitus Social History Social History Smoking status: Never smoker Alcohol intake: current Substance use: current Do You Feel Safe in your Home?: Yes Lack of Transportation: No Lack of Food: Sometimes True Current Housing: I Do Not Have Housing Concerned About Future Housing: YES Difficulty Paying Gas/Electric Bills: YES Difficulty Paying for Meds: YES Currently Unemployed: No Education: High School Diploma/GED Difficulty w/ Childcare or Family Care: No Living arrangements: with family Occupation/Education: occupation Additional occupation/education comments: 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 No obvious deformities NEURO: Awake and alert. SKIN:: Warm, dry. 1 x 4 cm area of swelling with a small 1 x 1 cm area of fluctuance to the right axilla, no active drainage. Associated tenderness to palpation. PSYCHIATRIC: Normal affect/mood, Course Vital Signs Vital signs: Vital Signs Temperature 98.9 F 12/26/24 17:59 Pulse Rate 88 12/26/24 17:59 Respiratory Rate 15 12/26/24 17:59 Blood Pressure 129/84 12/26/24 17:59 Pulse Oximetry 100 12/26/24 17:59 Oxygen Delivery Room Air 12/26/24 17:59 Temperature 98.5 F 12/26/24 20:17 Pulse Rate 84 12/26/24 21:30 Respiratory Rate 19 12/26/24 21:30 Blood Pressure 142/96 H 12/26/24 21:30 Pulse Oximetry 100 12/26/24 21:30 Oxygen Delivery Room Air 12/26/24 17:59 Procedures Abscess I/D upper extremity: Date of Incision: 12/26/24 Time of Incision: 20:05 Side (if applicable): right Sedation/analgesia: none Local Anesthetic: lidocaine 1% and with epi Amount of anesthesia used (mL): 5 Technique: other (needle chema) Amount of fluid expressed (mL): 5 Irrigation: No Packing used?: none (patient refused) I&D Results: Pus and Blood Complications: pain Abcess I&D Additional Comments: Wound culture obtained MDM - Skin/Abscess/Foreign Bdy MDM Narrative Medical decision making narrative: 34-year-old female Presenting for abscess to right axilla. On initial evaluation patient was in no acute distress afebrile, hemodynamic stable. Notable exam findings: 4x1cm abscess with small area of fluctuance, no current drainage abscess was drained as above, patient tolerated procedure well. Packing was declined by the patient. She was given the 1st dose of Bactrim here in the ED. She was given a prescription for Bactrim. She was advised follow-up with either her PCP or her surgeon in the next week for re-evaluation. Patient was agreeable to this plan. Given strict return precautions. Differential Diagnosis Differential diagnosis: Likely abscess of skin or subcutaneous tissue, cellulitis, insect bites and other ( Hidradenitis suppurativa) Medical Records Attestation: I reviewed the patient's medical records. Medical records narrative: Multiple prior visits for abscesses. Discharge Plan Discharge Clinical Impression: Abscess, Axillary hidradenitis suppurativa Patient Disposition: Home Condition: Stable Instructions: Antibiotic Form, Sulfamethoxazole/Trimethoprim (By mouth), Abscess (ED) Additional Instructions: Take Bactrim as prescribed. Continue to keep the area clean. Follow up with her surgeon or PCP in the next week for re-evaluation. Return to the ED for any new or worsening symptoms. For pain, discomfort or temperature greater than or equal to 100.8 ?F please alternate the following 2 medications as needed. First medication- acetaminophen/Tylenol- 1000mg every 6-8 hours as needed for above indications. Second medication- ibuprofen/Motrin-600mg every 6-8 hours as needed for above indication. Patient Language: Uzbek Prescriptions: New sulfamethoxazole-trimethoprim [Bactrim DS] 800-160 mg tablet 1 tablet PO Q12H Qty: 14 0RF No Action ibuprofen 600 mg tablet 600 mg PO TID PRN (Reason: pain) Qty: 30 0RF acetaminophen 500 mg capsule 1,000 mg PO Q6H PRN (Reason: pain) Qty: 30 0RF hydrocodone-acetaminophen 5-325 mg tablet 1 tablet PO Q12H PRN (Reason: pain) Qty: 14 0RF ondansetron 4 mg tablet,disintegrating 4 mg PO Q8H PRN (Reason: nausea and vomiting) Qty: 14 0RF hydrocodone-acetaminophen 5-325 mg tablet 1 tablet PO Q6H PRN (Reason: pain) Qty: 12 0RF Follow-up/Referrals: JimboSue M.D. [Primary Care Provider]
[2024-12-26] MEDS: KETOROLAC 30 MG/ML VIAL (*BKC) IM (20:37)
[2024-12-26] MEDS: SULFAMETHOXAZOLE/TRIMETHOPRIM 800/160 MG DS TABLET 1 TAB PO (21:26)
[2024-12-26 21:30] VITALS: BP 142/96; PULSE 84; RESP 19; O2SAT 100
== END 2024-12-26 21:30 | disposition home or self-care (01) ==
PROVIDERS: Emergency Provider Student in an Organized Health Care Education/Training Program; PCP Internal Medicine Infectious Disease
DX: L02.411 Cutaneous abscess of right axilla (principal); L73.2 Hidradenitis suppurativa
CPT/HCPCS: 10060; 96372; 99283; A9270; J1885